=== PATIENT | male | born 1945 | race Caucasian/White ===

== ENCOUNTER 2019-09-03 10:13 | Inpatient (IN) | payer MEDICARE, OTHER ==
[~2019-09-03] VITALS: Ht 180.3 cm; Wt 90.0 kg
[2019-09-03] VITALS (9 sets, daily range): BP systolic 97–135; BP diastolic 70–93
--- NOTE | 2019-09-03 11:30 | NUR ---
CHELA THAO admitted to room CU8-1, with an admitting diagnosis of AFIB RVR, on 09/03/19 from [facility], accompanied by STAFF.CHELA THAO introduced to surroundings, call light, bed controls, phone, TV, temperature control, lights, meal times, smoking policy, visitor policy, side rail policy, bathrooms and showers. Patient Rights given to patient in the handbook. CHELA THAO verbalizes understanding that [facility] is not responsible for the loss or damage to any personal effects or valuables that are kept in the patients posession during their hospitalization. The following Patient Care Plans were discussed with the PT: Discharge Planning, ANXIETY,ACTIVITY INTOLERANCE, and KNOWLEDGE DEFICIT. CHELA THAO verbalizes understanding of Interdisciplinary Patient Education. Patient and family were informed about the Rapid Response Team and its purpose.
[2019-09-03] MEDS ORDERED: MELATONIN 3 MG TABLET PO PRN (11:45)
[2019-09-03] MEDS ORDERED: ENOXAPARIN 100 MG/1 ML (LOVENOX) SYR SC SCH ×3 (11:45→22:00)
[2019-09-03] MEDS ORDERED: ONDANSETRON 4 MG/2 ML (SDV) Z0FRAN IV PRN (11:45)
[2019-09-03] MEDS ORDERED: ANTACID SUSP 30 ML UDC (MYLANTA) PO PRN (11:45)
[2019-09-03] MEDS ORDERED: BISACODYL 10 MG SUPP (DULCOLAX) PR PRN (11:45)
[2019-09-03] MEDS ORDERED: POLYETHYLENE GLYCOL 17 GM (MIRALAX) PACK PO PRN (11:45)
[2019-09-03] MEDS ORDERED: dilTIAZem DRIP PRE-MIX 125 ML IV ONE (11:52)
[2019-09-03] MEDS: dilTIAZem DRIP PRE-MIX 125 ML IV SCH ×2 (11:59→19:02)
--- NOTE | 2019-09-03 12:21 | NUR ---
PT RECEIVED 90MG OF LOVENOX AT [facility] [place] PER REPORT.
--- NOTE | 2019-09-03 13:18 | History & Physical-Hospitalist ---
History of Present Illness HPI/Chief Complaint Patient is a 74-year-old male with a past medical history of hypertension who was admitted from [facility] ER due to new onset atrial fibrillation with rapid ventricular rate. He reports that he was seen his primary care his admission, Dr. Muro, for a routine checkup when he was n oted to have a high heart rate. Per verbal report from the ER his rate was in the 180s. He was then referred to the emergency room at [facility] He was somewhat hypotensive with a blood pressure of 91/40. He was given 1 L of IV fluids which increased his blood pressure and was started on a Cardizem drip. He denies any symptoms including chest pain or palpitations. He does complain of new onset lower extremity edema within the past 2 weeks. He is also developed orthopnea but denies any dyspnea with exertion. Source: patient Exam Limitations: no limitations Date Seen 09/03/19 Time Seen by a Provider: 13:12 Attending Physician Fabiola Hearn MD PCP Roney Muro DO Referring Physician Date of Admission Sep 03, 2019 at 11:30 Home Medications & Allergies Home Medications Reviewed patient Home Medication Reconciliation performed by pharmacy medication reconciliations telecasting technician and/or nursing. Patients Allergies have been reviewed. Allergies Allergies Coded Allergies No Known Drug Allergies (Unverified09/03/19) Past Tmhvrnu-Hqxdpt-Pimcwm Hx Past Med/Social Hx: Reviewed Nursing Past Med/Soc Hx Patient Social History Marrital Status: Alcohol Use: Denies Use Recreational Drug Use: No Smoking Status: Never a Smoker Physical Abuse Screen: No Sexual Abuse: No Recent Foreign Travel: No Contact w/other who traveled: No Recent Hopitalizations: No Recent Infectious Disease Expo: No Immunizations Up To Date Date of Influenza Vaccine: May 05, 2019 Seasonal Allergies Seasonal Allergies: No Past Medical History Surgeries: Eye Surgery, Joint Replacement, Orthopedic Cardiac: Hypertension Musculoskeletal: Gout History of Blood Disorders: No Family History Reviewed Nursing Family Hx Patient reports no known family medical history. Review of Systems Constitutional: no symptoms reported EENTM: no symptoms reported Respiratory: see HPI; No cough, No dyspnea on exertion; orthopnea; No phlegm, No short of breath Cardiovascular: No chest pain; edema; No Hx of Intervention, No palpitations Gastrointestinal: no symptoms reported Genitourinary: no symptoms reported Musculoskeletal: no symptoms reported Skin: no symptoms reported Psychiatric/Neurological: No Symptoms Reported Physical Exam Physical Exam Vital Signs Vital Signs - First Documented 09/03/19 09/03/19 09/03/19 11:30 12:00 12:09 Temp 37.0 Pulse 134 B/P (MAP) 134/89 (104) Pulse Ox 96 O2 Delivery Room Air Capillary Refill : Height, Weight, BMI Height: '" Weight: lbs. oz. kg; 27.56 BMI Method: General Appearance: No Apparent Distress, WD/WN HEENT: PERRL/EOMI, Moist Mucous Membranes; No Scleral Icterus (L), No Scleral Icterus (R) Neck: Normal Inspection, Supple Respiratory: Lungs Clear, No Accessory Muscle Use, No Respiratory Distress Cardiovascular: No Murmur, Irregularly Irregular, Tachycardia Gastrointestinal: Normal Bowel Sounds, Non Tender, Soft Extremity: No Calf Tenderness, Swelling (2-3+ pitting to bilateral lower extremities) Neurologic/Psychiatric: Alert, Oriented x3, Normal Mood/Affect; No Aphasia, No Facial Droop Skin: Normal Color, Warm/Dry Results Results/Procedures Labs Patient resulted labs reviewed. Assessment/Plan Admission Diagnosis Atrial fibrillation with RVR Admission Status: Inpatient Order (span 2 midnights) Reason for Inpatient Admission: new onset, needs cardiology evaluation and heart failure work up Assessment and Plan Atrial Fib with RVR HTN Cardiology consulted, appreciate recs BP improved, trend Cardizem gtt Rate was steadily 110-125 while I was at bedside Lovenox given at [facility], will continue therapeutic dosing for stroke ppx echo Lower extremity edema Echo ordered Hypomagnesemia replaced at OSH Check in AM Diagnosis/Problems Diagnosis/Problems (1) Atrial fibrillation with RVR Status: Acute (2) Essential (primary) hypertension Status: Chronic (3) Hypomagnesemia Status: Acute (4) Lower extremity edema Status: Acute Clinical Quality Measures DVT/VTE Risk/Contraindication: Risk Factor Score Per Nursin RFS Level Per Nursing on Admit: 3=High Copy Copies To 1: RONEY MURO KATELYN M MD Sep 03, 2019 13:18
[2019-09-03] MEDS ORDERED: ASPI-983 PO (13:32)
[2019-09-03] MEDS ORDERED: AMLO5TAB9 PO (13:32)
[2019-09-03] MEDS ORDERED: LISI1TAB25 PO (13:32)
--- NOTE | 2019-09-03 13:32 | NUR ---
SPOKE WITH THE PATIENT ABOUT HIS MEDICATIONS, HE HAD HIS TWO PRESCRIPTION MED NAMES WRITTEN DOWN ON A PIECE OF PAPER IN HIS POCKET WITH STRENGTHS. HE VERIFIED HE TAKES ONE EVERY MORNING OF EACH MED. HE ALSO TAKES AN 81MG ASPIRIN EVERY MORNING OTC. I VERIFIED THE PRESCRIPTIONS WITH THE EXT MED HX.
[2019-09-03] MEDS: inSUlin ASPART (NovoLOG) 1 UNIT/0.01 ML (CHARGE PER UNIT) SC SCH ×2 (15:41→20:11)
--- NOTE | 2019-09-03 16:08 | Consultation-Cardiology ---
HPI-Cardiology Cardiology Consultation Date of Consultation 09/03/19 Date of Admission Time Seen by Provider: 16:04 Indication: Shortness of breath HPI 74 years old gentleman with no known history other than hypertension, has history of snoring. Started for about 2-1/2 weeks to have increasing dyspnea, orthopnea, PND, went for his routine checkup with his primary physician where he was noted to be in atrial fibrillation with rapid ventricular response. Denied any chest pain, no palpitation, no syncope, has been having increasing pedal edema for the past 2 weeks. He was borderline hypotensive, took his blood pressure medications this morning. Home Medications & Allergies Allergies: Coded Allergies: No Known Drug Allergies (Unverified , 09/03/19) Home Medication List Reviewed: Yes YTA-Fhnvih-Bqowwj Hx Patient Social History Marital Status: , Employed/Student: employed Alcohol Use: Denies Use Recreational Drug Use: No Smoking Status: Never a Smoker Recent Foreign Travel: No Recent Infectious Disease Expo: No Recent Hopitalizations: No Physical Abuse Screen: No Sexual Abuse: No Immunizations Up To Date Date of Influenza Vaccine: May 05, 2019 Past Medical History Discussed below Family Medical History Family Medical Hx Noncontributory Family History: Patient reports no known family medical history. Review of Systems-General Review of Systems Constitutional: no symptoms reported, malaise, weakness EENTM: see HPI, no symptoms reported Respiratory: see HPI; No cough; dyspnea on exertion, orthopnea; No phlegm; s hort of breath Cardiovascular: see HPI; No chest pain; edema; No Hx of Intervention, No palpitations Gastrointestinal: no symptoms reported, see HPI Genitourinary: no symptoms reported, see HPI Musculoskeletal: no symptoms reported, see HPI Skin: no symptoms reported, see HPI Psychiatric/Neurological: No Symptoms Reported, See HPI Reviewed Test Results Reviewed Test Results Lab Laboratory Tests Test 09/03/19 15:33 Range/Units Glucometer 96 70-110 MG/DL Physical Exam Physical Exam Vital Signs Vital Signs - First Documented 09/03/19 09/03/19 12:00 12:09 Temp 37.0 Pulse Ox 96 Capillary Refill : Height, Weight, BMI Height: '" Weight: lbs. oz. kg; 27.56 BMI Method: General Appearance: No Apparent Distress, WD/WN Eyes: Bilateral Eye Normal Inspection, Bilateral Eye PERRL, Bilateral Eye EOMI HEENT: PERRL/EOMI, Moist Mucous Membranes; No Scleral Icterus (L), No Scleral Icterus (R) Neck: Normal Inspection, Supple Respiratory: Lungs Clear, No Accessory Muscle Use, No Respiratory Distress Cardiovascular: No Murmur, Irregularly Irregular, Tachycardia Gastrointestinal: Normal Bowel Sounds, Non Tender, Soft Back: Normal Inspection, No CVA Tenderness, No Vertebral Tenderness Extremity: No Calf Tenderness, Pedal Edema (3), Swelling (2-3+ pitting to bilateral lower extremities) Neurologic/Psychiatric: Alert, Oriented x3, Normal Mood/Affect; No Aphasia, No Facial Droop Skin: Normal Color, Warm/Dry Lymphatic: No Adenopathy A/P-Cardiology Admission Diagnosis Acute atrial fibrillation Shortness of breath Peripheral edema Hypertension Assessment/Plan Atrial fibrillation with rapid ventricular response, probably subacute, has been having increasing shortness of breath for the past 3 weeks. Started on Cardizem drip, continue to titrate and adjust achieve adequate heart rate control, planning to evaluate VINI with electrical cardioversion in the morning if he did not convert on his own. Continue on Lovenox for now. Shortness of breath, orthopnea and PND, signs of congestive heart failure with peripheral edema. Hold off on the Lasix for now, monitor echo, evaluate BMP and cardiac enzymes. Hypertension, has been on amlodipine, lisinopril/HCTZ, hold both medications and continue on Cardizem drip titration Obesity, BMI 27 Snoring, high risk for sleep apnea. Will need sleep study as an outpatient. Peripheral edema, planning to initiate diuretics. Hyperthyroidism, reevaluate TSH and thyroid panel if needed, managed by primary care physician Status post cataract surgery occurred in January or February 2019 Clinical Quality Measures DVT/VTE Risk/Contraindication: Risk Factor Score Per Nursin RFS Level Per Nursing on Admit: 3=High OLGA URRUTIA MD Sep 03, 2019 16:08
[2019-09-03 16:29] LABS: MEAN PLATELET VOLUME 10.8 FL (7.4-10.4); RED CELL DISTRIBUTION WIDTH 16.4 % (10.0-14.5); WHITE BLOOD COUNT 7.6 10^3/uL (4.3-11.0)
[2019-09-03] MEDS: ACETAMINOPHEN 325 MG TABLET PO PRN ×2 (16:44→22:30)
[2019-09-03] MEDS ORDERED: RT-ALBUTEROL SULF 2.5 MG/3 ML PRE-MIX VIAL INH PRN (17:00)
[2019-09-03] MEDS ORDERED: DILTIAZEM 25 MG/5 ML INJ (CARDIZEM) VIAL ONE (17:01)
[2019-09-03 17:05] LABS: ALANINE AMINOTRANSFERASE 14 U/L (0-55); ALKALINE PHOSPHATASE 80 U/L (40-136); BILIRUBIN,TOTAL 1.4 MG/DL (0.1-1.0); BUN/CREATININE RATIO 19; CALCIUM 9.9 MG/DL (8.5-10.1); CARBON DIOXIDE 15 MMOL/L (21-32); CHLORIDE 110 MMOL/L (98-107); CREATININE SERUM 0.89 MG/DL (0.60-1.30); GFR ESTIMATED > 60; GLUCOSE 101 MG/DL (70-105); POTASSIUM 4.1 MMOL/L (3.6-5.0); SODIUM 140 MMOL/L (135-145); TOTAL PROTEIN 7.4 GM/DL (6.4-8.2)
[2019-09-03] MEDS ORDERED: DILTIAZEM 25 MG/5 ML INJ (CARDIZEM) VIAL IVP ONE (17:15)
[2019-09-04] VITALS (23 sets, daily range): BP systolic 95–125; BP diastolic 64–89
[2019-09-04] MEDS: dilTIAZem DRIP PRE-MIX 125 ML IV SCH ×2 (01:06→13:12)
[2019-09-04 03:31] LABS: HEMOGLOBIN 9.5 G/DL (13.3-17.7); RED CELL DISTRIBUTION WIDTH 16.7 % (10.0-14.5); WHITE BLOOD COUNT 6.1 10^3/uL (4.3-11.0)
[2019-09-04 03:51] LABS: ALANINE AMINOTRANSFERASE 11 U/L (0-55); ALBUMIN 3.5 GM/DL (3.2-4.5); ALKALINE PHOSPHATASE 70 U/L (40-136); BILIRUBIN,TOTAL 1.1 MG/DL (0.1-1.0); BUN/CREATININE RATIO 19; CALCIUM 9.2 MG/DL (8.5-10.1); CARBON DIOXIDE 19 MMOL/L (21-32); CHLORIDE 111 MMOL/L (98-107); CREATININE SERUM 1.19 MG/DL (0.60-1.30); GFR ESTIMATED 60; GLUCOSE 112 MG/DL (70-105); SODIUM 140 MMOL/L (135-145); TOTAL PROTEIN 6.6 GM/DL (6.4-8.2)
[2019-09-04] MEDS: inSUlin ASPART (NovoLOG) 1 UNIT/0.01 ML (CHARGE PER UNIT) SC SCH ×4 (05:25→20:37)
[2019-09-04] MEDS ORDERED: NS (IVPB) 250 ML ONE (07:58)
[2019-09-04] MEDS ORDERED: LIDOCAINE 2% VISCOUS 15 ML UDC ONE (07:59)
[2019-09-04] MEDS ORDERED: MIDAZOLAM 2 MG/2 ML (VERSED) VIAL ONE (08:03)
--- NOTE | 2019-09-04 08:03 | Cardiology Progress Note ---
Subjective Date Seen by Provider: Sep 04, 2019 Time Seen by Provider: 08:01 Subjective/Events-last exam patient is laying down in bed, still in atrial fibrillation. No chest pain Review of Systems General: No Chills, No Night Sweats, No Fatigue, No Malaise, No Appetite, No Other HEENT: No Head Aches, No Visual Changes, No Eye Pain, No Ear Pain, No Dysphasia, No Sinus Congestion, No Post Nasal Drip, No Sore Throat, No Other Pulmonary: Dyspnea; No Cough, No Pleuritic Chest Pain, No Other Cardiovascular: No: Chest Pain, Palpitations, Orthopnea, Paroxysmal Noc. Dyspnea, Edema, Lt Headedness, Other Objective-Cardiology Exam Last Set of Vital Signs Vital Signs 09/03/19 09/04/19 09/04/19 09/04/19 15:50 03:19 06:00 07:00 Temp 37.4 Pulse 113 Resp 20 B/P (MAP) 112/89 (97) Pulse Ox 93 O2 Delivery Room Air FiO2 21 Capillary Refill : I&O Intake and Output 09/04/19 00:00 Intake Total 975 ml Output Total 175 ml Balance 800 ml Intake Oral 850 ml IV Total 125 ml Output Urine Total 175 ml # Voids 4 Daily Weight Change No General: Alert, Oriented X3, Cooperative HEENT: Atraumatic, PERRLA Neck: Supple, No JVD, No Thyromegaly Lungs: Clear to Auscultation, Normal Air Movement Heart: Normal S1, Normal S2, No Murmurs, Other (atrial fibrillation) Abdomen: Normal Bowel Sounds, Soft, No Tenderness, No Hepatosplenomegaly, No Masses Extremities: No Clubbing, No Cyanosis, No Edema, Normal Pulses, No Tenderness/Swelling Skin: No Rashes, No Breakdown, No Significant Lesion Neuro: Normal Gait, Normal Speech, Strength at 5/5 X4 Ext, Normal Tone, Sensation Intact Psych/Mental Status: Mental Status NL, Mood NL Results Lab Laboratory Tests 09/03/19 16:21 09/04/19 03:15 A/P-Cardiology Admission Diagnosis Acute atrial fibrillation Shortness of breath Peripheral edema Hypertension Assessment/Plan Atrial fibrillation with rapid ventricular response, probably subacute, has been having increasing shortness of breath for the past 3 weeks. did not convert on Cardizem drip, I will proceed with VINI and electrical cardioversion Shortness of breath, orthopnea and PND, congestive heart failure, acute left ventricular systolic dysfunction, probably secondary to arrhythmia, underlying coronary artery disease cannot be excluded. Planning to proceed with VINI and cardioversion today. Echocardiogram done on September 03, 2019 showing normal left ventricular size, ejection fraction 40-45 percent, moderate mitral regurgitation, moderate tricuspid regurgitation, left atrium 5 cm, estimated PA pressure 40 mmHg Hypertension, has been on amlodipine, lisinopril/HCTZ, hold both medications and continue on Cardizem drip titration Obesity, BMI 27 Snoring, high risk for sleep apnea. Will need sleep study as an outpatient. Peripheral edema, planning to initiate diuretics. Hyperthyroidism, reevaluate TSH and thyroid panel if needed, managed by primary care physician Status post cataract surgery occurred in January or February 2019 Clinical Quality Measures DVT/VTE Risk/Contraindication: Risk Factor Score Per Nursin RFS Level Per Nursing on Admit: 3=High OLGA URRUTIA MD Sep 04, 2019 08:03
--- NOTE | 2019-09-04 08:04 | Cardiac Procedure Note-CS/ASA ---
Pre-Procedure Note Pre-Op Procedure Note H&P Reviewed The H&P was reviewed, patient examined and no changes noted. Date H&P Reviewed: Sep 04, 2019 Time H&P Reviewed: 08:04 Conscious Sedation Pre-Proced Time 08:04 ASA Score 3 For ASA 3 and 4: Consider anesthesia and medical clearance. Also, for patients with a history of failed moderate sedation consider anesthesia. Airway Lungs Heart ASA score ASA 1: a normal healthy patient ASA 2: a patient with a mild systemic disease (mid diabetes, controlled hypertension, obesity x ASA 3: a patient with a severe systemic disease that limits activity (angina, COPD, prior Myocardial infarction) ASA 4: a patient with an incapacitating disease that is a constant threat to life (CHF, renal failure) ASA 5: a moribund patient not expected to survive 24 hrs. (ruptured aneurysm) ASA 6: a declared brain- patient whose organs are being harvested. For emergent operations, add the letter E after the classification Mallampati Classification Grade 3 Sedation Plan Analgesia, Amnesia, Plan communicated to team members, Discussed options with patient/fam, Discussed risks with patient/fam The patient is an appropriate candidate to undergo the planned procedure, sedation, and anesthesia. The patient immediately re-assessed prior to indication. OLGA URRUTIA MD Sep 04, 2019 08:04
[2019-09-04] MEDS ORDERED: AMIODARONE (OMNICELL DRIP KIT) 150 MG/3 ML IV ONE ×2 (08:17→08:23)
[2019-09-04] MEDS ORDERED: D5W 100 ML IVPB 100 ML IV ONE (08:24)
--- NOTE | 2019-09-04 08:25 | Cardioversion ---
Cardioversion PROCEDURE PHYSICIAN: Olga Laura DATE OF PROCEDURE: 09/04/19 DIRECT EXTERNAL ELECTRICAL CARDIOVERSION: Indications: Atrial Fibrillation with rapid ventricular rate Preoperative diagnoses: Atrial Fibrillation with rapid ventricular rate Postoperative diagnosis: Sinus rhythm, Successful Electrical Cardioversion Anesthesia: By Anesthesia services Complications: None Specimen: None Contrast: 0 Flouroscopy: none Procedure Details: The patient was brought the director of cardiac cath lab after informed consent was taken, all the risks and complications were explained including the risk of stroke. Electrical cardioversion was carried out with anesthesia support with propofol. 200 joules of synchronized shock was delivered through external patches which promptly restored sinus rhythm. The patient tolerated the procedure well. Conclusions: Successful electrical cardioversion with no complication OLGA LAURA MD Sep 04, 2019 08:25
[2019-09-04] MEDS ORDERED: AMIODARONE FOR BOLUS 150 MG in D5W 100 ML IVPB 100 ML IV ONE (08:30)
[2019-09-04] MEDS ORDERED: proPOfol 200 MG/20 ML (DIPRIVAN) VIAL IV ONE (08:31)
[2019-09-04] MEDS ORDERED: AMIODARONE FOR BOLUS 150 MG in D5W 100 ML IVPB 100 ML IV NR (08:38)
--- NOTE | 2019-09-04 08:41 | Progress Note - Hospitalist ---
Subjective HPI/CC On Admission Date Seen by Provider: Sep 04, 2019 Time Seen by Provider: 08:36 Patient is a 74-year-old male with a past medical history of hypertension who was admitted from [facility] ER due to new onset atrial fibrillation with rapid ventricular rate. He reports that he was seen his primary care his admission, Dr. Muro, for a routine checkup when he was noted to have a high heart rate. Per verbal report from the ER his rate was in the 180s. He was then referred to the emergency room at [facility] He was somewhat hypotensive with a blood pressure of 91/40. He was given 1 L of IV fluids which increased his blood pressure and was started on a Cardizem drip. He denies any symptoms including chest pain or palpitations. He does complain of new onset lower extremity edema within the past 2 weeks. He is also developed orthopnea but denies any dyspnea with exertion. Subjective/Events-last exam Pt is about to undergo cardioversion. No complaints. Anesthesia and Cardiology at bedside. Objective Exam Vital Signs Vital Signs Date Time Temp Pulse Resp B/P (MAP) Pulse Ox O2 Delivery O2 Flow Rate FiO2 09/04/19 08:00 121 34 125/77 (93) 94 Room Air 09/04/19 03:19 37.4 09/03/19 15:50 21 Capillary Refill : General Appearance: No Apparent Distress, WD/WN Respiratory: No Accessory Muscle Use, No Respiratory Distress Neurologic/Psychiatric: Alert, Oriented x3 Results/Procedures Lab Laboratory Tests 09/03/19 16:21 09/04/19 03:15 Patient resulted labs reviewed. Assessment/Plan Assessment and Plan Assess & Plan/Chief Complaint Atrial Fib with RVR HTN Systolic congestive heart failure Cardiology consulted, appreciate recs Plan for cardioversion this morning Echo reveals EF of 40% Eliquis for anticoagulation Lower extremity edema Echo reveals EF of 40% Hypomagnesemia Pending Diagnosis/Problems Diagnosis/Problems (1) Atrial fibrillation with RVR Status: Acute (2) Essential (primary) hypertension Status: Chronic (3) Hypomagnesemia Status: Acute (4) Lower extremity edema Status: Acute Clinical Quality Measures DVT/VTE Risk/Contraindication: Risk Factor Score Per Nursin RFS Level Per Nursing on Admit: 3=High TADEO JOHNSON MD Sep 04, 2019 08:41
[2019-09-04] MEDS: ACETAMINOPHEN 325 MG TABLET PO PRN ×2 (10:25→12:53)
[2019-09-04] MEDS: PANTOPRAZOLE 40 MG (PROTONIX) TAB PO SCH (10:26)
[2019-09-04] MEDS: AMIODARONE 200 MG (CORDARONE) TAB PO SCH ×2 (10:26→20:38)
[2019-09-04] MEDS: APIXABAN 5 MG (ELIQUIS) TABLET PO SCH ×2 (10:26→20:38)
[2019-09-04] MEDS: AMIODARONE INJECTION 450 MG in D5W IV SOLUTION (EXCEL) 250 ML IV SCH ×2 (10:28→18:35)
--- NOTE | 2019-09-04 13:15 | NUR ---
VINI/CARDIOVERSION TIMELINE NOTE. 0805: VISCOUS LIDOCAINE GIVEN. 0810: ANESTHESIA, ECHO, AND DR URRUTIA IN ROOM. THIS RN IN ROOM TO ASSIST IF NEEDED. 0814: CARDIOVERSION COMPLETED AT 200J SUCCESSFULL TO NSR. EKG PERFORMED. 0830: PT DID HAVE SMALL RUN OF A FIB TO NSR WHILE DR URRUTIA IN THE ROOM. VO GIVEN TO START AMIO WITH BOLUS. PT A/O IN NAD WITH STABLE VITALS. MONITORING HIM CLOSELY.
[2019-09-04] MEDS ORDERED: COLCHICINE 0.6 MG (COLCRYS) TABLET PO NR (15:15)
[2019-09-05] VITALS (20 sets, daily range): BP systolic 106–133; BP diastolic 63–97
[2019-09-05] MEDS: dilTIAZem DRIP PRE-MIX 125 ML IV SCH ×2 (00:56→16:43)
[2019-09-05] MEDS: inSUlin ASPART (NovoLOG) 1 UNIT/0.01 ML (CHARGE PER UNIT) SC SCH ×4 (06:27→22:05)
--- NOTE | 2019-09-05 08:21 | Diagnostic Imaging Report ---
INDICATION: Fever. TECHNIQUE: Single frontal view of the chest. COMPARISON: None FINDINGS: There is mild cardiomegaly. There is a small left pleural effusion. There are bibasilar airspace opacities with central vascular congestion. No pneumothorax is seen. IMPRESSION: 1. Bibasilar airspace opacities, may represent edema or infection. 2. Mild cardiomegaly with central vascular congestion. 3. Small left pleural effusion. Dictated by: Dictated on workstation # [id number]
[2019-09-05 09:09] LABS: RED CELL DISTRIBUTION WIDTH 16.3 % (10.0-14.5); WHITE BLOOD COUNT 7.4 10^3/uL (4.3-11.0)
[2019-09-05] MEDS: PANTOPRAZOLE 40 MG (PROTONIX) TAB PO SCH (09:20)
[2019-09-05] MEDS: AMIODARONE 200 MG (CORDARONE) TAB PO SCH ×2 (09:21→20:04)
[2019-09-05] MEDS: APIXABAN 5 MG (ELIQUIS) TABLET PO SCH ×2 (09:21→20:04)
--- NOTE | 2019-09-05 09:26 | Progress Note - Hospitalist ---
Subjective HPI/CC On Admission Date Seen by Provider: Sep 05, 2019 Time Seen by Provider: 09:21 Patient is a 74-year-old male with a past medical history of hypertension who was admitted from [facility] ER due to new onset atrial fibrillation with rapid ventricular rate. He reports that he was seen his primary care his admission, Dr. Muro, for a routine checkup when he was noted to have a high heart rate. Per verbal report from the ER his rate was in the 180s. He was then referred to the emergency room at [facility] He was somewhat hypotensive with a blood pressure of 91/40. He was given 1 L of IV fluids which increased his blood pressure and was started on a Cardizem drip. He denies any symptoms including chest pain or palpitations. He does complain of new onset lower extremity edema within the past 2 weeks. He is also developed orthopnea but denies any dyspnea with exertion. Subjective/Events-last exam Pt reports doing well. Requesting DC home. HR still >100 on Cardizem gtt and amiodarone. Now has fever as well. Discussed reasons for staying in the hospital and he is agreeable. Objective Exam Vital Signs Vital Signs Date Time Temp Pulse Resp B/P (MAP) Pulse Ox O2 Delivery O2 Flow Rate FiO2 09/05/19 09:00 98 24 131/86 (101) 93 Nasal Cannula 2.00 09/05/19 03:50 37.6 09/03/19 15:50 21 Capillary Refill : General Appearance: No Apparent Distress, WD/WN Respiratory: No Accessory Muscle Use, No Respiratory Distress, Decreased Breath Sounds (in cases) Cardiovascular: Tachycardia (regular rhythem) Gastrointestinal: Normal Bowel Sounds, Non Tender, Soft Extremity: No Calf Tenderness, No Pedal Edema Neurologic/Psychiatric: Alert, Oriented x3, Normal Mood/Affect Results/Procedures Lab Laboratory Tests 09/05/19 08:54 Patient resulted labs reviewed. Assessment/Plan Assessment and Plan Assess & Plan/Chief Complaint Atrial Fib with RVR HTN Systolic congestive heart failure Cardiology consulted, appreciate recs s/p cardioversion this AM Echo reveals EF of 40% Eliquis for anticoagulation still on amiodarone and cardizem Lower extremity edema Echo reveals EF of 40% Gout improved with colchicine Hypomagnesemia Resolved, on protocol Normocytic anemia Will need outpatient work up Hyperthyroidism TSH low but normal T4 Recheck as an outpatient Diagnosis/Problems Diagnosis/Problems (1) Atrial fibrillation with RVR Status: Acute (2) Essential (primary) hypertension Status: Chronic (3) Hypomagnesemia Status: Acute (4) Lower extremity edema Status: Acute Clinical Quality Measures DVT/VTE Risk/Contraindication: Risk Factor Score Per Nursin RFS Level Per Nursing on Admit: 3=High TADEO JOHNSON MD Sep 05, 2019 09:26
[2019-09-05 09:29] LABS: ALBUMIN 3.6 GM/DL (3.2-4.5); BILIRUBIN,TOTAL 1.1 MG/DL (0.1-1.0); CALCIUM 9.3 MG/DL (8.5-10.1); CREATININE SERUM 1.21 MG/DL (0.60-1.30); POTASSIUM 4.1 MMOL/L (3.6-5.0)
--- NOTE | 2019-09-05 10:12 | Cardiology Progress Note ---
Subjective Date Seen by Provider: Sep 05, 2019 Time Seen by Provider: 10:10 Subjective/Events-last exam Patient is laying down in bed, having mild shortness of breath, had low-grade fever Review of Systems General: No Chills, No Night Sweats, No Fatigue, No Malaise, No Appetite, No Other HEENT: No Head Aches, No Visual Changes, No Eye Pain, No Ear Pain, No Dysphasia, No Sinus Congestion, No Post Nasal Drip, No Sore Throat, No Other Pulmonary: No Dyspnea, No Cough, No Pleuritic Chest Pain, No Other Cardiovascular: No: Chest Pain, Palpitations, Orthopnea, Paroxysmal Noc. Dyspnea, Edema, Lt Headedness, Other Objective-Cardiology Exam Last Set of Vital Signs Vital Signs 09/03/19 09/05/19 09/05/19 15:50 03:50 09:00 Temp 37.6 Pulse 98 Resp 24 B/P (MAP) 131/86 (101) Pulse Ox 93 O2 Delivery Nasal Cannula O2 Flow Rate 2.00 FiO2 21 Capillary Refill : I&O Intake and Output 09/05/19 00:00 Intake Total 805 ml Output Total 625 ml Balance 180 ml Intake Oral 680 ml IV Total 125 ml Output Urine Total 625 ml # Voids 7 General: Alert, Oriented X3, Cooperative HEENT: Atraumatic, PERRLA Neck: Supple, No JVD, No Thyromegaly Lungs: Clear to Auscultation, Normal Air Movement Heart: Regular Rate, Normal S1, Normal S2, Other (Systolic murmur at the left sternal border) Abdomen: Normal Bowel Sounds, Soft, No Tenderness, No Hepatosplenomegaly, No Masses Extremities: No Clubbing, No Cyanosis, No Edema, Normal Pulses, No Tenderness/Swelling Skin: No Rashes, No Breakdown, No Significant Lesion Neuro: Normal Gait, Normal Speech, Strength at 5/5 X4 Ext, Normal Tone, Sensation Intact Psych/Mental Status: Mental Status NL, Mood NL Results Lab Laboratory Tests 09/05/19 08:54 A/P-Cardiology Admission Diagnosis Acute atrial fibrillation Shortness of breath Peripheral edema Hypertension Assessment/Plan Paroxysmal atrial fibrillation status post VINI and cardioversion, started on amiodarone drip and tolerating it well. Low-grade fever, questionable early infiltrate on chest x-ray. Septic workup was initiated, managed by primary care physician Shortness of breath, orthopnea and PND, mild left ventricular systolic dysfunction, valvular heart disease with moderate mitral regurgitation. Moderate tricuspid regurgitation, left atrium is 5 cm with PA pressure 40 mmHg. Medical therapy is recommended at this time. Hypertension, was on amlodipine and lisinopril HCT, changing medication monitoring tolerance and response Obesity, BMI 27 Snoring, high risk for sleep apnea. Will need sleep study as an outpatient. Peripheral edema, planning to initiate diuretics. Hyperthyroidism, reevaluate TSH and thyroid panel if needed, managed by primary care physician Status post cataract surgery occurred in January or February 2019 Clinical Quality Measures DVT/VTE Risk/Contraindication: Risk Factor Score Per Nursin RFS Level Per Nursing on Admit: 3=High OLGA URRUTIA MD Sep 05, 2019 10:12
[2019-09-05] MEDS ORDERED: FUROSEMIDE 40 MG/4 ML INJ (LASIX) IVP ONE (10:15)
--- NOTE | 2019-09-05 11:39 | NUR ---
PT TRIAL OFF OXYGEN AT BEGINNING OF SHIFT WITH SATS DOWN TO 87%. PT ASYMPTOMATIC. REAPPLIED AT 2 LPM WITH SATS 93%. 1100: PT ASSISTED TO TOILET FOR BM. LINENS CHANGED AND PT AMBULATED WITH WALKER AROUND THE ROOM SEVERAL TIMES. PT TO CHAIR. OXYGEN TRIAL OFF AGAIN AND SATS REMAINED 91% OR GREATER. ALARM LIMIT SET TO 90% AND WILL MONITOR ON ROOM AIR.
[2019-09-05] MEDS: cefTRIAXone FOR IV USE 1,000 MG in WATER (STERILE) FOR INJECTION 10 ML IV SCH (11:50)
[2019-09-05] MEDS: ACETAMINOPHEN 325 MG TABLET PO PRN (20:04)
[2019-09-05] MEDS ORDERED: diphenhydrAMINE 25 MG TAB (BENADRYL) PO ONE (20:34)
[2019-09-05] MEDS ORDERED: diphenhydrAMINE 25 MG TAB (BENADRYL) PO PRN (20:45)
[2019-09-06] VITALS (15 sets, daily range): BP systolic 109–139; BP diastolic 73–86
[2019-09-06 03:36] LABS: BASOPHILS % (AUTO) 0 % (0-10); EOSINOPHILS # (AUTO) 0.1 10^3/uL (0.0-0.3); EOSINOPHILS % (AUTO) 1 % (0-10); HEMATOCRIT 34 % (40-54); HEMOGLOBIN 10.2 G/DL (13.3-17.7); LYMPHOCYTES # (AUTO) 1.4 X 10^3 (1.0-4.0); LYMPHOCYTES % (AUTO) 18 % (12-44); MEAN CORPUSCULAR HEMOGLOBIN 24 PG (25-34); MEAN CORPUSCULAR HGB CONC 30 G/DL (32-36); MEAN CORPUSCULAR VOLUME 80 FL (80-99); MEAN PLATELET VOLUME 10.6 FL (7.4-10.4); MONOCYTES # (AUTO) 1.2 X 10^3 (0.0-1.0); MONOCYTES % (AUTO) 16 % (0-12); NEUTROPHILS # (AUTO) 5.2 X 10^3 (1.8-7.8); NEUTROPHILS % (AUTO) 66 % (42-75); PLATELET COUNT 217 10^3/uL (130-400); RED CELL DISTRIBUTION WIDTH 16.5 % (10.0-14.5); WHITE BLOOD COUNT 7.9 10^3/uL (4.3-11.0)
[2019-09-06 04:18] LABS: ALBUMIN 3.6 GM/DL (3.2-4.5); BILIRUBIN,TOTAL 0.9 MG/DL (0.1-1.0); CALCIUM 9.5 MG/DL (8.5-10.1); CREATININE SERUM 1.25 MG/DL (0.60-1.30); POTASSIUM 4.1 MMOL/L (3.6-5.0); TOTAL PROTEIN 7.2 GM/DL (6.4-8.2)
[2019-09-06] MEDS: inSUlin ASPART (NovoLOG) 1 UNIT/0.01 ML (CHARGE PER UNIT) SC SCH ×2 (06:05→11:17)
[2019-09-06] MEDS ORDERED: KCL 10 MEQ TAB (MICRO K) PO SCH ×2 (07:00→09:00)
[2019-09-06] MEDS: dilTIAZem DRIP PRE-MIX 125 ML IV SCH (07:37)
--- NOTE | 2019-09-06 07:58 | Cardiology Progress Note ---
Subjective Date Seen by Provider: Sep 06, 2019 Time Seen by Provider: 07:57 Subjective/Events-last exam Patient is laying down comfortably in bed, went back to atrial fibrillation with rapid ventricular response last night. Currently on Cardizem drip Review of Systems General: No Chills, No Night Sweats, No Fatigue, No Malaise, No Appetite, No Other HEENT: No Head Aches, No Visual Changes, No Eye Pain, No Ear Pain, No Dysphasia, No Sinus Congestion, No Post Nasal Drip, No Sore Throat, No Other Pulmonary: No Dyspnea, No Cough, No Pleuritic Chest Pain, No Other Cardiovascular: No: Chest Pain, Palpitations, Orthopnea, Paroxysmal Noc. Dyspnea, Edema, Lt Headedness, Other Objective-Cardiology Exam Last Set of Vital Signs Vital Signs 09/03/19 09/05/19 09/06/19 09/06/19 15:50 21:00 03:33 06:00 Temp 36.9 Pulse 92 Resp 20 B/P (MAP) 116/77 (90) Pulse Ox 93 O2 Delivery Room Air O2 Flow Rate 2.00 FiO2 21 Capillary Refill : I&O Intake and Output 09/06/19 00:00 Intake Total 1835 ml Output Total 1125 ml Balance 710 ml Intake Oral 1700 ml IV Total 135 ml Output Urine Total 1125 ml # Voids 12 # Bowel Movements 4 General: Alert, Oriented X3, Cooperative HEENT: Atraumatic, PERRLA Neck: Supple, No JVD, No Thyromegaly Lungs: Clear to Auscultation, Normal Air Movement Heart: Normal S1, Normal S2, Other (Systolic murmur at the left sternal border, atrial fibrillation) Abdomen: Normal Bowel Sounds, Soft, No Tenderness, No Hepatosplenomegaly, No Masses Extremities: No Clubbing, No Cyanosis, No Edema, Normal Pulses, No Tenderness/Swelling Skin: No Rashes, No Breakdown, No Significant Lesion Neuro: Normal Gait, Normal Speech, Strength at 5/5 X4 Ext, Normal Tone, Sensation Intact Psych/Mental Status: Mental Status NL, Mood NL Results Lab Laboratory Tests 09/05/19 08:54 09/06/19 03:21 A/P-Cardiology Admission Diagnosis Acute atrial fibrillation Shortness of breath Peripheral edema Hypertension Assessment/Plan Paroxysmal atrial fibrillation status post VINI and cardioversion, went back in the evening to atrial fibrillation, continue with loading with amiodarone, continue on Cardizem and Toprol, we'll attempt another cardioversion today. Low-grade fever, questionable early infiltrate on chest x-ray. Septic workup was initiated, managed by primary care physician Shortness of breath, orthopnea and PND, mild left ventricular systolic dysfunction, valvular heart disease with moderate mitral regurgitation. Mode rate tricuspid regurgitation, left atrium is 5 cm with PA pressure 40 mmHg. Medical therapy is recommended at this time. Hypertension, was on amlodipine and lisinopril HCT, changing medication mon itoring tolerance and response Obesity, BMI 27 Snoring, high risk for sleep apnea. Will need sleep study as an outpatient. Peripheral edema, planning to initiate diuretics. Hyperthyroidism, reevaluate TSH and thyroid panel if needed, managed by primary care physician Status post cataract surgery occurred in January or February 2019 Clinical Quality Measures DVT/VTE Risk/Contraindication: Risk Factor Score Per Nursin RFS Level Per Nursing on Admit: 3=High OLGA URRUTIA MD Sep 06, 2019 07:58
--- NOTE | 2019-09-06 07:59 | Cardiac Procedure Note-CS/ASA ---
Pre-Procedure Note Pre-Op Procedure Note H&P Reviewed The H&P was reviewed, patient examined and no changes noted. Date H&P Reviewed: Sep 06, 2019 Time H&P Reviewed: 07:58 Conscious Sedation Pre-Proced Time 07:58 ASA Score 3 For ASA 3 and 4: Consider anesthesia and medical clearance. Also, for patients with a history of failed moderate sedation consider anesthesia. Airway Lungs Heart ASA score ASA 1: a normal healthy patient ASA 2: a patient with a mild systemic disease (mid diabetes, controlled hypertension, obesity x ASA 3: a patient with a severe systemic disease that limits activity (angina, COPD, prior Myocardial infarction) ASA 4: a patient with an incapacitating disease that is a constant threat to life (CHF, renal failure) ASA 5: a moribund patient not expected to survive 24 hrs. (ruptured aneurysm) ASA 6: a declared brain- patient whose organs are being harvested. For emergent operations, add the letter E after the classification Mallampati Classification Grade 3 Sedation Plan Analgesia, Amnesia, Plan communicated to team members, Discussed options with patient/fam, Discussed risks with patient/fam The patient is an appropriate candidate to undergo the planned procedure, sedation, and anesthesia. The patient immediately re-assessed prior to indication. OLGA URRUTIA MD Sep 06, 2019 07:59
[2019-09-06] MEDS ORDERED: FUROSEMIDE 20 MG (LASIX) TAB PO SCH (09:00)
[2019-09-06] MEDS ORDERED: lisINopril 10 MG (PRINIVIL) TABLET PO SCH (09:00)
--- NOTE | 2019-09-06 09:14 | Diagnostic Imaging Report ---
CLINICAL INDICATION: Patient with dyspnea. EXAM: Chest x-ray PA and lateral views. COMPARISONS: Chest x-ray dated 09/05/2019. FINDINGS: There is interval improved aeration of both lungs with residual mild bibasilar atelectasis versus infiltrate. There is blunting of the costophrenic angles bilaterally and pleural effusions cannot be excluded. There is no pneumothorax. Stable cardiomegaly with no significant pulmonary vascular congestion. The remainder of this exam shows no significant interval change compared to the prior study of comparison. IMPRESSION: 1: There is improved aeration of both lungs with residual mild bibasilar atelectasis versus infiltrate. 2: There are possible small bilateral pleural effusions. Dictated by: Dictated on workstation # [id number]
[2019-09-06] MEDS: APIXABAN 5 MG (ELIQUIS) TABLET PO SCH ×2 (09:28→14:46)
[2019-09-06] MEDS: AMIODARONE 200 MG (CORDARONE) TAB PO SCH ×2 (09:28→14:46)
[2019-09-06] MEDS: PANTOPRAZOLE 40 MG (PROTONIX) TAB PO SCH (09:28)
[2019-09-06] MEDS ORDERED: proPOfol 200 MG/20 ML (DIPRIVAN) VIAL IV ONE (10:03)
[2019-09-06] MEDS ORDERED: NS IV 500 ML 500 ML ONE (10:13)
--- NOTE | 2019-09-06 10:23 | NUR ---
PULLED 500ML NS PER ANESTHESIA FOR CARDIOVERSION.
--- NOTE | 2019-09-06 10:25 | NUR ---
CARDIOVERSION NOTE: 1024: PROVIDERS IN ROOM. SEDATION PER ANESTHESIA. 1025: SHOCKED WITH 200J AND RETURNS TO NSR. 1030: PT IS A/OX4. VITALS STABLE. HE IS SITTING UP IN BED SPEAKING WITH THIS NURSE APPROPRIATELY. FAMILY RETURNED TO ROOM.
--- NOTE | 2019-09-06 10:31 | Cardioversion ---
Cardioversion PROCEDURE PHYSICIAN: Olga Laura DATE OF PROCEDURE: 09/06/19 DIRECT EXTERNAL ELECTRICAL CARDIOVERSION: Indications: Atrial Fibrillation with rapid ventricular rate Preoperative diagnoses: Atrial Fibrillation with rapid ventricular rate Postoperative diagnosis: Sinus rhythm, Successful Electrical Cardioversion History: Patient had cardioversion yesterday, was in sinus rhythm until the evening, I continued with loading with amiodarone and added Cardizem and proceeded with cardioversion again today. Patient has been on oral anticoagulation. Anesthesia: By Anesthesia services Complications: None Specimen: None Contrast: 0 Flouroscopy: none Procedure Details: The patient was brought the analyst microbiology lab after informed consent was taken, all the risks and complications were explained including the risk of stroke. Electrical cardioversion was carried out with anesthesia support with propofol. 200 joules of synchronized shock was delivered through external patches which promptly restored sinus rhythm. The patient tolerated the procedure well. Conclusions: Successful electrical cardioversion with no complication OLGA LAURA MD Sep 06, 2019 10:31
[2019-09-06] MEDS ORDERED: DILTIAZEM 120 MG (CARDIZEM CD) CAP PO SCH (10:45)
--- NOTE | 2019-09-06 10:45 | Anesthesia-General Post-Op ---
MAC Patient Condition Mental Status/LOC: Same as Preop Cardiovascular: Satisfactory Nausea/Vomiting: Absent Respiratory: Satisfactory Pain: Controlled Complications: Absent Post Op Complications Complications None Follow Up Care/Instructions Patient Instructions None needed. Anesthesiology Discharge Order Discharge Order Patient is doing well, no complaints, stable vital signs, no apparent adverse anesthesia problems. No complications reported per nursing. ELYSSA CLARK CRNA Sep 06, 2019 10:45
[2019-09-06] MEDS: cefTRIAXone FOR IV USE 1,000 MG in WATER (STERILE) FOR INJECTION 10 ML IV SCH (11:31)
[2019-09-06] MEDS ORDERED: COLCHICINE 0.6 MG (COLCRYS) TABLET PO ONE (14:00)
--- NOTE | 2019-09-06 14:00 | Progress Note - Hospitalist ---
Subjective HPI/CC On Admission Date Seen by Provider: Sep 06, 2019 Time Seen by Provider: 09:30 Patient is a 74-year-old male with a past medical history of hypertension who was admitted from [facility] ER due to new onset atrial fibrillation with rapid ventricular rate. He reports that he was seen his primary care his admission, Dr. Muro, for a routine checkup when he was noted to have a high heart rate. Per verbal report from the ER his rate was in the 180s. He was then referred to the emergency room at [facility] He was somewhat hypotensive with a blood pressure of 91/40. He was given 1 L of IV fluids which increased his blood pressure and was started on a Cardizem drip. He denies any symptoms including chest pain or palpitations. He does complain of new onset lower extremity edema within the past 2 weeks. He is also developed orthopnea but denies any dyspnea with exertion. Subjective/Events-last exam Pt reports doing well. No complaints. Went back in to a-fib with RVR overnight and now on cardizem gtt. Planning for cardioversion this morning with Dr Laura. Objective Exam Vital Signs Vital Signs Date Time Temp Pulse Resp B/P (MAP) Pulse Ox O2 Delivery O2 Flow Rate FiO2 09/06/19 12:00 37.6 09/06/19 12:00 92 28 129/79 (96) Room Air 09/06/19 11:00 94 09/05/19 21:00 2.00 09/03/19 15:50 21 Capillary Refill : General Appearance: No Apparent Distress, WD/WN Respiratory: Lungs Clear, No Respiratory Distress Cardiovascular: No Murmur, Irregularly Irregular Gastrointestinal: Normal Bowel Sounds, Non Tender, Soft Neurologic/Psychiatric: Alert, Oriented x3 Results/Procedures Lab Laboratory Tests 09/06/19 03:21 Patient resulted labs reviewed. Assessment/Plan Assessment and Plan Assess & Plan/Chief Complaint Atrial Fib with RVR HTN Systolic congestive heart failure Cardiology consulted, appreciate recs s/p cardioversion this 09/04 and plan to do it again today Echo reveals EF of 40% Eliquis for anticoagulation On cardizem gtt Lower extremity edema Echo reveals EF of 40% Gout improved with colchicine Hypomagnesemia Resolved, on protocol Normocytic anemia Will need outpatient work up Hyperthyroidism TSH low but normal T4 Recheck as an outpatient as normal T4 Diagnosis/Problems Diagnosis/Problems (1) Atrial fibrillation with RVR Status: Acute (2) Essential (primary) hypertension Status: Chronic (3) Hypomagnesemia Status: Acute (4) Lower extremity edema Status: Acute Clinical Quality Measures DVT/VTE Risk/Contraindication: Risk Factor Score Per Nursin RFS Level Per Nursing on Admit: 3=High TADEO JOHNSON MD Sep 06, 2019 14:00
[2019-09-06] MEDS ORDERED: APIX5TAB PO (14:20)
[2019-09-06] MEDS ORDERED: POTA10TA6 PO (14:20)
[2019-09-06] MEDS ORDERED: PANT40TA3 PO (14:20)
[2019-09-06] MEDS ORDERED: FURO20TA4 PO (14:20)
[2019-09-06] MEDS ORDERED: MTP25TSR PO (14:20)
[2019-09-06] MEDS ORDERED: LISI10TA2 PO (14:20)
[2019-09-06] MEDS ORDERED: DILT-27 PO (14:20)
[2019-09-06] MEDS ORDERED: AMIO200T4 PO (14:20)
[2019-09-06] MEDS ORDERED: CEPH-507 PO (15:05)
--- NOTE | 2019-09-06 15:07 | Discharge Inst-Simple/Standard ---
Discharge Inst-Standard Patient Instructions/Follow Up Plan of Care/Instructions/FU: Please continue taking medications as written. Please follow-up with Dr. SCHMITT in the next week. Please follow up with Dr. Laura within 2 weeks. Activity as Tolerated: Yes Discharge Diet: Cardiac Diet Return to The Hospital For: Chest pain, shortness of breath, heart racing, if you fall and hit yourhead, lower extremity swelling, weight gain of more than 5 pounds in 2 days, if you feel you're getting worse. Planned Outpatient Orders/Ref. Pneu Vac Indicated: Yes TADEO JOHNSON MD Sep 06, 2019 15:07
--- NOTE | 2019-09-06 16:05 | NUR ---
PT DISCHARGED VIA WHEELCHAIR TO PRIVATE VEHICLE WITH ADULT CHILDREN TO HOME. PT GIVEN DISCHARGE INFORMATION. STRESSED IMPORTANCE OF MEDICATION COMPLIANCE. APPOINTMENT CARD WITH DR URRUTIA OFFICE NUMBER AND PT STATES HE WOULD CALL IN THE MORNING. NIGHT TIME JOSE ANTONIO AND LUIS GIVEN TO PATIENT. ALL QUESTIONS ASKED WITH NO FURTHER CONCERNS VOICED FROM FAMILY OR PATIENT.
== END 2019-09-06 15:55 | disposition home or self-care (01) | DRG 308 ==
LOC: ICU 11:30
PROVIDERS: ADMIT Family Medicine; ATTEND Family Medicine
PROC: 5A2204Z Restoration of Cardiac Rhythm, Single (ICD-10-PCS; principal; 2019-09-04)
DX: I48.0 Paroxysmal atrial fibrillation (principal); I11.0 Hypertensive heart disease with heart failure; I50.21 Acute systolic (congestive) heart failure; I08.1 Rheumatic disorders of both mitral and tricuspid valves; R06.83 Snoring; Z66 Do not resuscitate; M10.9 Gout, unspecified; E83.42 Hypomagnesemia; D64.9 Anemia, unspecified; E05.90 Thyrotoxicosis, unspecified without thyrotoxic crisis or storm; E66.9 Obesity, unspecified; Z68.27 Body mass index [BMI] 27.0-27.9, adult
CPT/HCPCS: 36415; 71045; 71046; 80053; 82962; 83735; 83880; 84145; 84436; 84443; 84484; 85025; 85027; 87040; 87081; 93005; 93306; 93312; 93320; 93325; 94664

== ENCOUNTER → 2019-09-09 | Outpatient (CLI) | payer MEDICARE, OTHER ==
[~2019-09-09] VITALS: Ht 180 cm; Wt 86.0 kg
[~2019-09-09] MED LIST: AMIO200T4 PO; AMLO5TAB9 PO; APIX5TAB PO; ASPI-983 PO; CATHETER FLUSH 10 ML SYR IV PRN; CEPH-507 PO; DILT-27 PO; FURO20TA4 PO; LISI10TA2 PO; LISI1TAB25 PO; MTP25TSR PO; PANT40TA3 PO; POTA10TA6 PO; REGADENOSON 0.4 MG/5 ML SYR (LEXISCAN) IV ONE
[2019-09-09 09:10] VITALS: BP 137/83
--- NOTE | 2019-09-09 17:53 | STRESS TEST ---
DATE OF SERVICE: 09/09/2019 LEXISCAN MYOVIEW STRESS TEST REPORT REFERRING PHYSICIAN: Roney Muro DO Baseline heart rate is 83, baseline blood pressure 137/83. Baseline EKG is sinus rhythm with no ischemic changes. In summary, the patient was injected with 10.01 mCi of technetium-99 Myoview and the resting images were obtained. Then, the patient received 0.4 mg of Lexiscan followed by 32.0 mCi of technetium-99 Myoview. The resting and stress images were reviewed and compared in the short axis, horizontal long axis, and vertical long axis views. Review of the images showed diaphragmatic attenuation with good radiotracer uptake, typical male pattern. No significant ischemia or infarction. SSS is 2, SDS 2, TID value 1.08. On the gated images, the left ventricle appeared to be normal size with normal contractility. Calculated ejection fraction 49%. CONCLUSIONS: 1. The patient tolerated Lexiscan well. 2. Diaphragmatic attenuation with typical male pattern with no significant ischemia or infarction. 3. Normal left ventricular size with normal contractility. Calculated ejection fraction 49%. Job ID: [id number] DocumentID: [id number] Dictated Date: 09/09/2019 15:29:49 Banquet Lead Date: 09/09/2019 17:53:20 Dictated By: OLGA URRUTIA MD
== END ==
LOC: CARD 07:14
PROVIDERS: ATTEND Internal Medicine Cardiovascular Disease
DX: I11.0 Hypertensive heart disease with heart failure (principal); I50.9 Heart failure, unspecified; I48.20 Chronic atrial fibrillation, unspecified; I34.0 Nonrheumatic mitral (valve) insufficiency
CPT/HCPCS: 78452; 93017

== ENCOUNTER 2019-10-22 11:33 | Inpatient (IN) | payer MEDICARE, OTHER ==
[~2019-10-22] VITALS: Ht 180 cm; Wt 78.5 kg
[2019-10-22] VITALS (22 sets, daily range): BP systolic 90–124; BP diastolic 54–74
[~2019-10-22 11:33] MED LIST changes: -CATHETER FLUSH 10 ML SYR IV PRN; -REGADENOSON 0.4 MG/5 ML SYR (LEXISCAN) IV ONE
[2019-10-22 11:59] LABS: BASOPHILS % (AUTO) 1 % (0-10); EOSINOPHILS % (AUTO) 0 % (0-10); LYMPHOCYTES % (AUTO) 15 % (12-44); MEAN CORPUSCULAR HEMOGLOBIN 20 PG (25-34); MEAN CORPUSCULAR HGB CONC 28 G/DL (32-36); MEAN CORPUSCULAR VOLUME 72 FL (80-99); MEAN PLATELET VOLUME 9.5 FL (7.4-10.4); MONOCYTES # (AUTO) 0.7 X 10^3 (0.0-1.0); MONOCYTES % (AUTO) 11 % (0-12); NEUTROPHILS # (AUTO) 4.5 X 10^3 (1.8-7.8); NEUTROPHILS % (AUTO) 73 % (42-75); PLATELET COUNT 158 10^3/uL (130-400); RED CELL DISTRIBUTION WIDTH 18.1 % (10.0-14.5); WHITE BLOOD COUNT 6.2 10^3/uL (4.3-11.0)
[2019-10-22 12:00] LABS: HEMATOCRIT 11 % (40-54); HEMOGLOBIN 2.9 G/DL (13.3-17.7)
--- OUTSIDE RECORDS SUMMARY | 2019-10-22 12:07 | XMS REPORT | Continuity of Care Document ---
Author Organization Unknown Address Unknown Phone Unavailable Allergies Active Description Code Type Severity Reaction Onset Reported/Identified Relationship to Patient Clinical Status Yes NO KNOWN DRUG ALLERGIES UNKNOWN NO KNOWN DRUG ALLERG Yes NO KNOWN DRUG ALLERGIES UNKNOWN UNKNOWN Yes No Known Drug Allergies [id number] Drug Allergy Unknown N/A 09/03/2019 Medications Medication Packaging Start Date St op Date Route Dosage Sig Metoprolol IV soln 5mg/5cc vial (Lopressor ) MG 09/03/2019 09/03/2019 ONCE&0911 Normal SALINE 0.9 % (NS 100cc) (plain bag) ml 09/03/2019 09/06/2019 CONTINUOUSEVERY 0 Hour DILTIAZEM BOLUS VIAL INJ 25 MG/5CC (CARDIZEM BOLUS VIAL) MG 09/03/2019 09/03/2019 ONCE&0940 NORMAL SALINE 1000CC IV BAG INJ 0.9 % (NS 1000CC IV BAG) ml 09/03/2019 09/03/2019 ONCE&0940 ENOXAPARIN SYRINGE INJ 100 MG (LOVENOX SYR SHYANN) MG 09/03/2019 09/03/2019 ONCE&0947 MAGNESIUM SULFATE VIAL INJ 1 GM/2CC (MAG SULFATE 2CC VIAL) GM 09/03/2019 09/03/2019 ONCE&1003 DIPHENHYDRAMINE VIAL INJ 50 MG/CC (BENADRYL VIAL) MG 09/03/2019 09/03/2019 ONCE&1037 NORMAL SALINE 1000CC IV BAG INJ 0.9 % (NS 1000CC IV BAG) ml 09/03/2019 09/18/2019 CONTINUOUSEVERY 0 Hour Problems Date Dx Coded Attending Type Code Diagnosis Diagnosed By 02/12/2018 W 401.9 UNSP ECIFIED ESSENTIAL HYPERTENSION 02/12/2018 W 790.21 IMP AIRED FASTING GLUCOSE 02/12/2018 W I10 ESSENT IAL (PRIMARY) HYPERTENSION 02/12/2018 W R73.01 IMP AIRED FASTING GLUCOSE 08/18/2018 Roney Muro W 401.9 UNSPECIFIED ESSENTIAL HYPERTENSION 08/18/2018 Roney Muro W I10 ESSENTIAL (PRIMARY) HYPERTENSION 08/18/2018 W 401.9 UNSP ECIFIED ESSENTIAL HYPERTENSION 08/18/2018 W I10 ESSENT IAL (PRIMARY) HYPERTENSION 08/18/2018 Roney Muro W 401.9 UNSPECIFIED ESSENTIAL HYPERTENSION 08/18/2018 PaRoney de jesus W I10 ESSENTIAL (PRIMARY) HYPERTENSION 02/16/2019 PaRoney de jesus W 401.9 UNSPECIFIED ESSENTIAL HYPERTENSION 02/16/2019 JinaRoney W I10 ESSENTIAL (PRIMARY) HYPERTENSION 02/16/2019 Jina Roney W 401.9 UNSPECIFIED ESSENTIAL HYPERTENSION 02/16/2019 JustoRoney de jesus W 790.21 IMPAIRED FASTING GLUCOSE 02/16/2019 JinaRoney W I10 ESSENTIAL (PRIMARY) HYPERTENSION 02/16/2019 Jina Roney Allen R73.01 IMPAIRED FASTING GLUCOSE 02/16/2019 W 401.9 UNSP ECIFIED ESSENTIAL HYPERTENSION 02/16/2019 W 790.21 IMP AIRED FASTING GLUCOSE 02/16/2019 W I10 ESSENT IAL (PRIMARY) HYPERTENSION 02/16/2019 W R73.01 IMP AIRED FASTING GLUCOSE 02/16/2019 JustoRoney de jesus W 401.9 UNSPECIFIED ESSENTIAL HYPERTENSION 02/16/2019 Roney Muro 790.21 IMPAIRED FASTING GLUCOSE 02/16/2019 JinaRoney I10 ESSENTIAL (PRIMARY) HYPERTENSION 02/16/2019 JinaRoney R73.01 IMPAIRED FASTING GLUCOSE 09/03/2019 LEISURE, BECKYIETA W 427.31 ATRIAL FIBRILLATION 09/03/2019 LEISURE, LYNIETA W I48.91 UNSPECIFIED ATRIAL FIBRILLATION 09/03/2019 LEISURE, LYNIETA W 427.31 ATRIAL FIBRILLATION 09/03/2019 LEISURE, LYNIETA W I48.91 UNSPECIFIED ATRIAL FIBRILLATION 09/03/2019 LEISURE, LYNIETA W 427.31 ATRIAL FIBRILLATION 09/03/2019 LEISURE, LYNIETA W I10 ESSENTIAL (PRIMARY) HYPERTENSION 09/03/2019 LEISURE, LYNIETA W I48.91 UNSPECIFIED ATRIAL FIBRILLATION 09/03/2019 LEISURE, LYNIETA W R73.01 IMPAIRED FASTING GLUCOSE 09/04/2019 ALEX LESLIE, TADEO Perez 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 0 HYPERTENSIVE HEART DISEASE WITH HEART FA 09/04/2019 TADEO JOHNSON MD Ot I48. 91 UNSPECIFIED ATRIAL FIBRILLATION 09/04/2019 TADEO JOHNSON MD Ot I50. 21 ACUTE SYSTOLIC (CONGESTIVE) HEART FAILUR 09/04/2019 TADEO JOHNSON MD Ot R06. 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 0 HYPERTENSIVE HEART DISEASE WITH HEART FA 09/04/2019 TADEO JOHNSON MD Ot I48. 91 UNSPECIFIED ATRIAL FIBRILLATION 09/04/2019 TADEO JOHNSON MD Ot I50. 21 ACUTE SYSTOLIC (CONGESTIVE) HEART FAILUR 09/04/2019 TADEO JOHNSON MD Ot R06. 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 0 HYPERTENSIVE HEART DISEASE WITH HEART FA 09/05/2019 TADEO JOHNSON MD Ot I48. 91 UNSPECIFIED ATRIAL FIBRILLATION 09/05/2019 TADEO JOHNSON MD Ot I50. 21 ACUTE SYSTOLIC (CONGESTIVE) HEART FAILUR 09/05/2019 TADEO JOHNSON MD Ot R06. 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 0 HYPERTENSIVE HEART DISEASE WITH HEART FA 09/06/2019 TADEO JOHNSON MD Ot I48. 91 UNSPECIFIED ATRIAL FIBRILLATION 09/06/2019 TADEO JOHNSON MD Ot I50. 21 ACUTE SYSTOLIC (CONGESTIVE) HEART FAILUR 09/06/2019 TADEO JOHNSON MD Ot R06. 83 SNORING 09/06/2019 TADEO JOHNSON MD Ot Z66 DO NOT RESUSCITATE 09/06/2019 TADEO JOHNSON MD Ot D64. 9 ANEMIA, UNSPECIFIED 09/06/2019 TADEO JOHNSON MD Ot E05. 90 THYROTOXICOSIS, UNSP WITHOUT THYROTOXIC 09/06/2019 TADEO JOHNSON MD Ot E66. 9 OBESITY, UNSPECIFIED 09/06/2019 TADEO JOHNSON MD Ot E83. 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 0 HYPERTENSIVE HEART DISEASE WITH HEART FA 09/06/2019 TADEO JOHNSON MD Ot I48. 0 PAROXYSMAL ATRIAL FIBRILLATION 09/06/2019 TADEO JOHNSON MD Ot I50. 21 ACUTE SYSTOLIC (CONGESTIVE) HEART FAILUR 09/06/2019 TADEO JOHNSON MD Ot M10. 9 GOUT, UNSPECIFIED 09/06/2019 TADEO JOHNSON MD Ot R06. 83 SNORING 09/06/2019 TADEO JOHNSON MD Ot Z66 DO NOT RESUSCITATE 09/06/2019 TADEO JOHNSON MD Ot Z68. 27 BODY MASS INDEX (BMI) 27.0-27.9, ADULT 09/10/2019 OLGA URRUTIA MD Ot I11. 0 HYPERTENSIVE HEART DISEASE WITH HEART FA 09/10/2019 OLGA URRUTIA MD Ot I34. 0 NONRHEUMATIC MITRAL (VALVE) INSUFFICIENC 09/10/2019 OLGA RURUTIA MD Ot I48. 20 CHRONIC ATRIAL FIBRILLATION, UNSPECIFIED 09/10/2019 OLGA URRUTIA MD Ot I50. 9 HEART FAILURE, UNSPECIFIED 09/15/2019 OLGA URRUTIA MD Ot I11. 0 HYPERTENSIVE HEART DISEASE WITH HEART FA 09/15/2019 OLGA URRUTIA MD Ot I34. 0 NONRHEUMATIC MITRAL (VALVE) INSUFFICIENC 09/15/2019 OLGA URRUTIA MD Ot I48. 20 CHRONIC ATRIAL FIBRILLATION, UNSPECIFIED 09/15/2019 OLGA URRUTIA MD Ot I50. 9 HEART FAILURE, UNSPECIFIED 09/29/2019 OLGA URRUTIA MD Ot I11. 0 HYPERTENSIVE HEART DISEASE WITH HEART FA 09/29/2019 OLGA URRUTIA MD, Ot I34. 0 NONRHEUMATIC MITRAL (VALVE) INSUFFICIENC 09/29/2019 OLGA URRUTIA MD, Ot I48. 20 CHRONIC ATRIAL FIBRILLATION, UNSPECIFIED 09/29/2019 OLGA URRUTIA MD, Ot I50. 9 HEART FAILURE, UNSPECIFIED Procedures Code Description Performed By Per formed On [id number] RE STORATION OF CARDIAC RHYTHM, SINGLE 09/04/2019 Results Test Result Range Hemoglobin A1C - 09/20/16 08:49 % A1C 6.10 % 5.40-6.60 AvGlu 141 mg/dL 70-110 PSA Yearly Screen - 03/21/17 09:22 PSA TOTAL 2.3 ng/mL 0.0-4.0 Lipid Panel - 02/12/18 09:10 C/HDL 3.2 3.7-6.7 Cholesterol 149 mg/dL 100-240 HDL 47 mg/dL 30-85 LDL-Calculated 81 mg/dL 0-100 Trig 105 mg/dL 35-160 VLDL 21 mg/dL 0-42 Hemoglobin A1C - 08/18/18 08:46 % A1C 5.30 % 5.40-6.60 AvGlu 111 mg/dL 70-110 Lipid Panel - 02/16/19 09:00 C/HDL 3.3 3.7-6.7 Cholesterol 134 mg/dL 100-240 HDL 41 mg/dL 30-85 LDL-Calculated 77 mg/dL 0-100 Trig 79 mg/dL 35-160 VLDL 16 mg/dL 0-42 Comprehensive Metabolic Panel - 02/16/19 09:00 Albumin 4.0 g/dL 3.6-5.1 ALP 94 U/L 35-130 ALT 56 U/L 6-45 Anion Gap 14 6-14 AST 53 U/L 2-40 BUN 29 mg/dL 5-25 Calcium 9.8 mg/dL 8.3-10.4 Chloride 110 mmol/L 95-114 CO2 22 mEq/L 22-33 Creat 1.05 mg/dL 0.50-1.50 eGFR 69 mL/min/1.73m2 >59 Globulin 3.3 g/dL 2.3-3.5 Glucose 113 mg/dL 70-110 Osmo 299 280-295 Potassium 4.4 mmol/L 3.5-5.3 Sodium 142 mmol/L 134-148 TBil 0.8 mg/dL 0.2-1.2 TP 7.3 g/dL 6.0-8.3 Thyroid Stimulating Hormone - 09/03/19 0 9:13 TSH 0.05 mIU/mL 0.32-5.00 Methicillin resistant Staphylococcus aur eus (MRSA) screening culture - 09/03/19 11:50 Methicillin resistant Staphylococcus aureus (MRSA) scr eening culture NEG NRG Capillary blood glucose measurement by g lucometer (mass/volume) - 09/03/19 15:33 Capillary blood glucose measurement by glucometer (mas s/volume) 96 mg/dL 70-110 Automated blood complete blood count (he mogram) panel - 09/03/19 16:21 Blood leukocytes automated count (number/volume) 7.6 10*3/uL 4.3-11.0 Blood erythrocytes automated count (number/volume) 4.00 10*6/uL 4.35-5.85 Venous blood hemoglobin measurement (mass/volume) 10.0 g/dL 13.3-17.7 Blood hematocrit (volume fraction) 33 % 40-54 Automated erythrocyte mean corpuscular volume 82 [ foz_us] 80-99 Automated erythrocyte mean corpuscular h emoglobin (mass per erythrocyte) 25 pg 25-34 Automated erythrocyte mean corpuscular h emoglobin concentration measurement (mass/volume) 31 g/dL 32-36 Automated erythrocyte distribution width ratio 16. 4 % 10.0- 14.5 Automated blood platelet count (count/volume) 198 10*3/uL 130-400 Automated blood platelet mean volume measurement 10.8 [foz_us] 7.4-10.4 Comprehensive metabolic panel - 09/03/19 16:21 Serum or plasma sodium measurement (moles/volume) 140 mmol/L 135-145 Serum or plasma potassium measurement (moles/volume) 4.1 mmol/L 3.6-5.0 Serum or plasma chloride measurement (moles/volume) 110 mmol/L 98-107 Carbon dioxide 15 mmol/L 21-32 Serum or plasma anion gap determination (moles/volume) 15 mmol/L 5-14 Serum or plasma urea nitrogen measurement (mass/volume ) 17 mg/dL 7-18 Serum or plasma creatinine measurement (mass/volume) 0.89 mg/dL 0.60-1.30 Serum or plasma urea nitrogen/creatinine mass ratio 19 NRG Serum or plasma creatinine measurement w ith calculation of estimated glomerular filtration rate > NRG Serum or plasma glucose measurement (mass/volume) 101 mg/dL 70-105 Serum or plasma calcium measurement (mass/volume) 9.9 mg/dL 8.5-10.1 Serum or plasma total bilirubin measurement (mass/volu me) 1.4 mg/dL 0.1-1.0 Serum or plasma alkaline phosphatase thang surement (enzymatic activity/volume) 80 U/L 40-136 Serum or plasma aspartate aminotransfera se measurement (enzymatic activity/volume) 18 U/L 5-34 Serum or plasma alanine aminotransferase measurement (enzymatic activity/volume) 14 U/L 0-55 Serum or plasma protein measurement (mass/volume) 7.4 g/dL 6.4-8.2 Serum or plasma albumin measurement (mass/volume) 4.0 g/dL 3.2-4.5 CALCIUM CORRECTED 9.9 mg/dL 8.5-10.1 Serum or plasma troponin i.cardiac measu rement (mass/volume) - 09/03/19 16:21 Serum or plasma troponin i.cardiac measurement (mass/v olume) < ng/mL <0.028 Capillary blood glucose measurement by g lucometer (mass/volume) - 09/03/19 20:09 Capillary blood glucose measurement by glucometer (mas s/volume) 176 mg/dL 70-110 Automated blood complete blood count (he mogram) panel - 09/04/19 03:15 Blood leukocytes automated count (number/volume) 6.1 10*3/uL 4.3-11.0 Blood erythrocytes automated count (number/volume) 3.81 10*6/uL 4.35-5.85 Venous blood hemoglobin measurement (mass/volume) 9.5 g/dL 13.3-17.7 Blood hematocrit (volume fraction) 31 % 40-54 Automated erythrocyte mean corpuscular volume 81 [ foz_us] 80-99 Automated erythrocyte mean corpuscular h emoglobin (mass per erythrocyte) 25 pg 25-34 Automated erythrocyte mean corpuscular h emoglobin concentration measurement (mass/volume) 31 g/dL 32-36 Automated erythrocyte distribution width ratio 16. 7 % 10.0- 14.5 Automated blood platelet count (count/volume) 183 10*3/uL 130-400 Automated blood platelet mean volume measurement 10.0 [foz_us] 7.4-10.4 Comprehensive metabolic panel - 09/04/19 03:15 Serum or plasma sodium measurement (moles/volume) 140 mmol/L 135-145 Serum or plasma potassium measurement (moles/volume) 4.0 mmol/L 3.6-5.0 Serum or plasma chloride measurement (moles/volume) 111 mmol/L 98-107 Carbon dioxide 19 mmol/L 21-32 Serum or plasma anion gap determination (moles/volume) 10 mmol/L 5-14 Serum or plasma urea nitrogen measurement (mass/volume ) 23 mg/dL 7-18 Serum or plasma creatinine measurement (mass/volume) 1.19 mg/dL 0.60-1.30 Serum or plasma urea nitrogen/creatinine mass ratio 19 NRG Serum or plasma creatinine measurement w ith calculation of estimated glomerular filtration rate 60 NRG Serum or plasma glucose measurement (mass/volume) 112 mg/dL 70-105 Serum or plasma calcium measurement (mass/volume) 9.2 mg/dL 8.5-10.1 Serum or plasma total bilirubin measurement (mass/volu me) 1.1 mg/dL 0.1-1.0 Serum or plasma alkaline phosphatase thang surement (enzymatic activity/volume) 70 U/L 40-136 Serum or plasma aspartate aminotransfera se measurement (enzymatic activity/volume) 13 U/L 5-34 Serum or plasma alanine aminotransferase measurement (enzymatic activity/volume) 11 U/L 0-55 Serum or plasma protein measurement (mass/volume) 6.6 g/dL 6.4-8.2 Serum or plasma albumin measurement (mass/volume) 3.5 g/dL 3.2-4.5 CALCIUM CORRECTED 9.6 mg/dL 8.5-10.1 Serum or plasma troponin i.cardiac measu rement (mass/volume) - 09/04/19 03:15 Serum or plasma troponin i.cardiac measurement (mass/v olume) < ng/mL <0.028 THYROID STIMULATING HORMONE - 09/04/19 0 3:15 THYROID STIMULATING HORMONE 0.05 u[iU]/mL 0.35-4.94 Magnesium - 09/04/19 03:15 Magnesium 1.7 mg/dL 1.6-2.4 Serum or plasma lithium measurement (mol es/volume) - 09/04/19 03:15 BNP PT 241.0 pg/mL <100.0 THYROXINE T4 - 09/04/19 03:15 THYROXINE T4 8.5 % 5.5-12.0 Capillary blood glucose measurement by g lucometer (mass/volume) - 09/04/19 11:25 Capillary blood glucose measurement by glucometer (mas s/volume) 133 mg/dL 70-110 Capillary blood glucose measurement by g lucometer (mass/volume) - 09/04/19 15:58 Capillary blood glucose measurement by glucometer (mas s/volume) 132 mg/dL 70-110 Capillary blood glucose measurement by g lucometer (mass/volume) - 09/04/19 20:37 Capillary blood glucose measurement by glucometer (mas s/volume) 123 mg/dL 70-110 Capillary blood glucose measurement by g lucometer (mass/volume) - 09/05/19 06:24 Capillary blood glucose measurement by glucometer (mas s/volume) 122 mg/dL 70-110 PROCALCITONIN (PCT) - 09/05/19 08:52 PROCALCITONIN (PCT) 0.21 ng/mL <0.10 Automated blood complete blood count (he mogram) panel - 09/05/19 08:54 Blood leukocytes automated count (number/volume) 7.4 10*3/uL 4.3-11.0 Blood erythrocytes automated count (number/volume) 4.08 10*6/uL 4.35-5.85 Venous blood hemoglobin measurement (mass/volume) 10.0 g/dL 13.3-17.7 Blood hematocrit (volume fraction) 33 % 40-54 Automated erythrocyte mean corpuscular volume 82 [ foz_us] 80-99 Automated erythrocyte mean corpuscular h emoglobin (mass per erythrocyte) 25 pg 25-34 Automated erythrocyte mean corpuscular h emoglobin concentration measurement (mass/volume) 30 g/dL 32-36 Automated erythrocyte distribution width ratio 16. 3 % 10.0- 14.5 Automated blood platelet count (count/volume) 185 10*3/uL 130-400 Automated blood platelet mean volume measurement 11.0 [foz_us] 7.4-10.4 Comprehensive metabolic panel - 09/05/19 08:54 Serum or plasma sodium measurement (moles/volume) 139 mmol/L 135-145 Serum or plasma potassium measurement (moles/volume) 4.1 mmol/L 3.6-5.0 Serum or plasma chloride measurement (moles/volume) 110 mmol/L 98-107 Carbon dioxide 15 mmol/L 21-32 Serum or plasma anion gap determination (moles/volume) 14 mmol/L 5-14 Serum or plasma urea nitrogen measurement (mass/volume ) 22 mg/dL 7-18 Serum or plasma creatinine measurement (mass/volume) 1.21 mg/dL 0.60-1.30 Serum or plasma urea nitrogen/creatinine mass ratio 18 NRG Serum or plasma creatinine measurement w ith calculation of estimated glomerular filtration rate 58 NRG Serum or plasma glucose measurement (mass/volume) 123 mg/dL 70-105 Serum or plasma calcium measurement (mass/volume) 9.3 mg/dL 8.5-10.1 Serum or plasma total bilirubin measurement (mass/volu me) 1.1 mg/dL 0.1-1.0 Serum or plasma alkaline phosphatase thang surement (enzymatic activity/volume) 72 U/L 40-136 Serum or plasma aspartate aminotransfera se measurement (enzymatic activity/volume) 12 U/L 5-34 Serum or plasma alanine aminotransferase measurement (enzymatic activity/volume) 11 U/L 0-55 Serum or plasma protein measurement (mass/volume) 7.0 g/dL 6.4-8.2 Serum or plasma albumin measurement (mass/volume) 3.6 g/dL 3.2-4.5 CALCIUM CORRECTED 9.6 mg/dL 8.5-10.1 Bacterial blood culture - 09/05/19 08:54 Bacterial blood culture NG NRG Bacterial blood culture - 09/05/19 08:57 Bacterial blood culture NG NRG Capillary blood glucose measurement by g lucometer (mass/volume) - 09/05/19 12:21 Capillary blood glucose measurement by glucometer (mas s/volume) 148 mg/dL 70-110 Capillary blood glucose measurement by g lucometer (mass/volume) - 09/05/19 15:32 Capillary blood glucose measurement by glucometer (mas s/volume) 117 mg/dL 70-110 Capillary blood glucose measurement by g lucometer (mass/volume) - 09/05/19 21:07 Capillary blood glucose measurement by glucometer (mas s/volume) 125 mg/dL 70-110 Complete blood count (CBC) with automate d white blood cell (WBC) differential - 09/06/19 03:21 Blood leukocytes automated count (number/volume) 7.9 10*3/uL 4.3-11.0 Blood erythrocytes automated count (number/volume) 4.19 10*6/uL 4.35-5.85 Venous blood hemoglobin measurement (mass/volume) 10.2 g/dL 13.3-17.7 Blood hematocrit (volume fraction) 34 % 40-54 Automated erythrocyte mean corpuscular volume 80 [ foz_us] 80-99 Automated erythrocyte mean corpuscular h emoglobin (mass per erythrocyte) 24 pg 25-34 Automated erythrocyte mean corpuscular h emoglobin concentration measurement (mass/volume) 30 g/dL 32-36 Automated erythrocyte distribution width ratio 16. 5 % 10.0- 14.5 Automated blood platelet count (count/volume) 217 10*3/uL 130-400 Automated blood platelet mean volume measurement 10.6 [foz_us] 7.4-10.4 Automated blood neutrophils/100 leukocytes 66 % 42-75 Automated blood lymphocytes/100 leukocytes 18 % 12-44 Blood monocytes/100 leukocytes 16 % 0-12 Automated blood eosinophils/100 leukocytes 1 % 0-10 Automated blood basophils/100 leukocytes 0 % 0-10 Blood neutrophils automated count (number/volume) 5.2 10*3 1.8-7.8 Blood lymphocytes automated count (number/volume) 1.4 10*3 1.0-4.0 Blood monocytes automated count (number/volume) 1. 2 10*3 0.0-1.0 Automated eosinophil count 0.1 10*3/uL 0 .0-0.3 Automated blood basophil count (count/volume) 0.0 10*3/uL 0.0-0.1 Comprehensive metabolic panel - 09/06/19 03:21 Serum or plasma sodium measurement (moles/volume) 140 mmol/L 135-145 Serum or plasma potassium measurement (moles/volume) 4.1 mmol/L 3.6-5.0 Serum or plasma chloride measurement (moles/volume) 109 mmol/L 98-107 Carbon dioxide 18 mmol/L 21-32 Serum or plasma anion gap determination (moles/volume) 13 mmol/L 5-14 Serum or plasma urea nitrogen measurement (mass/volume ) 24 mg/dL 7-18 Serum or plasma creatinine measurement (mass/volume) 1.25 mg/dL 0.60-1.30 Serum or plasma urea nitrogen/creatinine mass ratio 19 NRG Serum or plasma creatinine measurement w ith calculation of estimated glomerular filtration rate 56 NRG Serum or plasma glucose measurement (mass/volume) 108 mg/dL 70-105 Serum or plasma calcium measurement (mass/volume) 9.5 mg/dL 8.5-10.1 Serum or plasma total bilirubin measurement (mass/volu me) 0.9 mg/dL 0.1-1.0 Serum or plasma alkaline phosphatase thang surement (enzymatic activity/volume) 72 U/L 40-136 Serum or plasma aspartate aminotransfera se measurement (enzymatic activity/volume) 12 U/L 5-34 Serum or plasma alanine aminotransferase measurement (enzymatic activity/volume) 9 U/L 0-55 Serum or plasma protein measurement (mass/volume) 7.2 g/dL 6.4-8.2 Serum or plasma albumin measurement (mass/volume) 3.6 g/dL 3.2-4.5 CALCIUM CORRECTED 9.8 mg/dL 8.5-10.1 Capillary blood glucose measurement by g lucometer (mass/volume) - 09/06/19 11:15 Capillary blood glucose measurement by glucometer (mas s/volume) 98 mg/dL 70-110 Complete blood count (CBC) with automate d white blood cell (WBC) differential - 10/22/19 11:46 Blood leukocytes automated count (number/volume) 6.2 10*3/uL 4.3-11.0 Blood erythrocytes automated count (number/volume) 1.46 10*6/uL 4.35-5.85 Venous blood hemoglobin measurement (mass/volume) 2.9 g/dL 13.3-17.7 Blood hematocrit (volume fraction) 11 % 40-54 Automated erythrocyte mean corpuscular volume 72 [ foz_us] 80-99 Automated erythrocyte mean corpuscular h emoglobin (mass per erythrocyte) 20 pg 25-34 Automated erythrocyte mean corpuscular h emoglobin concentration measurement (mass/volume) 28 g/dL 32-36 Automated erythrocyte distribution width ratio 18. 1 % 10.0- 14.5 Automated blood platelet count (count/volume) 158 10*3/uL 130-400 Automated blood platelet mean volume measurement 9.5 [foz_us] 7.4-10.4 Automated blood neutrophils/100 leukocytes 73 % 42-75 Automated blood lymphocytes/100 leukocytes 15 % 12-44 Blood monocytes/100 leukocytes 11 % 0-12 Automated blood eosinophils/100 leukocytes 0 % 0-10 Automated blood basophils/100 leukocytes 1 % 0-10 Blood neutrophils automated count (number/volume) 4.5 10*3 1.8-7.8 Blood lymphocytes automated count (number/volume) 1.0 10*3 1.0-4.0 Blood monocytes automated count (number/volume) 0. 7 10*3 0.0-1.0 Automated eosinophil count 0.0 10*3/uL 0 .0-0.3 Automated blood basophil count (count/volume) 0.0 10*3/uL 0.0-0.1 Encounters ACCT No. Visit Date/Time Discharge Status Pt. Type Provider Facility Loc./Unit Complaint [id number] 09/17/2019 13:31:00 09/17/2019 23:59 :00 DIS Outpatient JustoRoney de jesus [id number] 09/03/2019 13:03:00 09/03/2019 23:59 :00 DIS Outpatient Roney Muro [id number] 09/03/2019 08:56:00 09/03/2019 10:55 :00 DIS Outpatient [id number] [id number] 02/16/2019 08:30:00 02/16/2019 23:59: 00 DIS Outpatient Roney Muro [id number] 08/18/2018 08:43:00 08/18/2018 23:59: 00 DIS Outpatient Roney Muro [id number] 02/12/2018 08:58:00 02/12/2018 23:59: 00 DIS Outpatient Roney Muro [id number] 03/21/2017 09:17:00 03/21/2017 23:59: 00 DIS Outpatient Roney Muro [id number] 09/20/2016 08:45:00 09/20/2016 23:59: 00 DIS Outpatient JustoRoney de jesus [id number] 09/03/2019 09:13:10 Document Registration [id number] 02/16/2019 08:03:00 Document Registration [id number] 08/18/2018 08:06:00 Document Registration [id number] 02/12/2018 08:28:00 Document Registration [id number] 09/09/2019 07:45:00 02/05/2 020 23:59:59 CLS Outpatient RENAN LESLIE, OLGA Castellon [facility] CARD CHF,MITRAL REGURGITATIO N,HTN [id number] 09/03/2019 11:30:00 15:55:00 DIS Inpatient ALEX LESLIE, TADEO Perez [facility] ICU AFIB W RVR [id number] 10/22/2019 12:02:00 Document Registration
--- NOTE | 2019-10-22 12:09 | ED Chest Pain ---
General Chief Complaint: Cardiac/General Problems Stated Complaint: SOA Source: patient Exam Limitations: no limitations History of Present Illness Date Seen by Provider: Oct 22, 2019 Time Seen by Provider: 11:44 Initial Comments Here with intermittent chest pain over the last few days to few weeks. States that he has increasing short of breath with activity and sometimes gets chest pain with activity. 3 weeks ago he did not have this problem but now he does. Looks rather pale but denies blood in his stool or urine. Denies fevers, chills, nausea, vomiting or diarrhea. Does admit to some weakness. Seen by his primary care provider this morning and discussed with Dr. Laura who wanted him seen in the ER. Patient sent here for further evaluation. Intermittent chest pressure that is retrosternal. Last chest pain was an hour ago and has resolved. Timing/Duration: other (worsening over 3 weeks) Severity/Quality: moderate, pressure Location: substernal, central Radiation: no radiation Activities at Onset: activity Prior CP/Workup: cardiac cath, echocardiography ASA po HOME HEALTH SCHEDULER: No NTG SL HOME HEALTH SCHEDULER: No Associated Symptoms: No abdominal pain, No back pain, No diaphoresis, No dizziness; edema, fatigue; No fever/chills, No headache, No heartburn, No nausea/vomiting; shortness of breath, weakness Allergies and Home Medications Allergies Coded Allergies: No Known Drug Allergies (Unverified , 09/03/19) Home Medications Amiodarone HCl 200 Mg Tablet, 200 MG PO UD Take 2 tabs twice daily for one week then take 1 tab twice daily Prescribed by: OLGA LAURA on 09/06/19 1420 Apixaban 5 Mg Tablet, 5 MG PO BID Prescribed by: OLGA LAURA on 09/06/19 1420 Cephalexin 500 Mg Capsule, 500 MG PO BID Prescribed by: TADEO JOHNSON on 09/06/19 1505 Diltiazem HCl 120 Mg Cap.er.24h, 120 MG PO DAILY Prescribed by: OLGA LAURA on 09/06/19 1420 Furosemide 20 Mg Tablet, 20 MG PO DAILY Prescribed by: OLGA LAURA on 09/06/19 1420 Lisinopril 10 Mg Tablet, 10 MG PO DAILY Prescribed by: OLGA LAURA on 09/06/19 1420 Metoprolol Succinate 25 Mg Tab.er.24h, 25 MG PO DAILY Prescribed by: OLGA LAURA on 09/06/19 142 Pantoprazole Sodium 40 Mg Tablet.dr, 40 MG PO DAILY Prescribed by: OLGA LAURA on 09/06/19 142 Potassium Chloride 10 Meq Tablet.er, 10 MEQ PO DAILY@0900 Prescribed by: OLGA LAURA on 09/06/19 142 Patient Home Medication List Home Medication List Reviewed: Yes Review of Systems Review of Systems Constitutional: see HPI; No chills, No fever; weakness EENTM: No Symptoms Reported Respiratory: See HPI, SOA With Exertion; Denies Wheezing Cardiovascular: Chest Pain, Edema Gastrointestinal: No Symptoms Reported Genitourinary: No Symptoms Reported Musculoskeletal: No muscle pain; muscle weakness Skin: change in color; No lesions Psychiatric/Neurological: No Symptoms Reported All Other Systems Reviewed Negative Unless Noted: Yes Past Xgsagha-Ymirho-Ktqned Hx Past Med/Social Hx: Reviewed Nursing Past Med/Soc Hx Patient Social History Alcohol Use: Rarely Uses Recreational Drug Use: No Smoking Status: Former Smoker Former Smoker, Quit: Oct 11, 1994 Recent Foreign Travel: No Contact w/Someone Who Travel: No Recent Hopitalizations: No Physical Abuse: No Sexual Abuse: No Mistreated: No Fear: No Immunizations Up To Date Tetanus Booster (TDap): Unknown Date of Influenza Vaccine: May 05, 2019 Seasonal Allergies Seasonal Allergies: No Past Medical History Surgeries: Yes (r knee, eye sx, cardioversion) Eye Surgery, Joint Replacement, Orthopedic Respiratory: No Cardiac: Yes (congestive heart failure) Atrial Fibrillation, Hypertension Neurological: No Genitourinary: No Gastrointestinal: No Musculoskeletal: Yes Gout Endocrine: No HEENT: No Cancer: No Psychosocial: No Integumentary: No Blood Disorders: No Family Medical History Reviewed Nursing Family Hx Patient reports no known family medical history. Physical Exam Vital Signs Vital Signs - First Documented 10/22/19 11:51 Temp 36.8 Pulse 101 Resp 20 B/P (MAP) 92/42 (59) Pulse Ox 97 Capillary Refill : Height, Weight, BMI Height: '" Weight: lbs. oz. kg; 26.54 BMI Method: General Appearance: No Apparent Distress, WD/WN HEENT: PERRL/EOMI, Pharynx Normal, Pale Conjunctivae (L), Pale Conjunctivae (R) Neck: Non Tender, Supple Respiratory: Lungs Clear, Normal Breath Sounds Cardiovascular: No Murmur, Tachycardia Gastrointestinal: Non Tender, Soft Genital/Rectal: Normal Rectal Exam, Heme Positive Stool Extremity: Normal Range of Motion, Non Tender Neurologic/Psychiatric: Alert, Oriented x3 Skin: Normal Color, Warm/Dry Progress/Results/Core Measures Results/Orders Lab Results Laboratory Tests Test 10/22/19 11:46 Range/Units White Blood Count 6.2 4.3-11.0 10^3/uL Red Blood Count 1.46 L 4.35-5.85 10^6/uL Hemoglobin 2.9 *L 13.3-17.7 G/DL Hematocrit 11 *L 40-54 % Mean Corpuscular Volume 72 L 80-99 FL Mean Corpuscular Hemoglobin 20 L 25-34 PG Mean Corpuscular Hemoglobin Concent 28 L 32-36 G/DL Red Cell Distribution Width 18.1 H 10.0-14.5 % Platelet Count 158 130-400 10^3/uL Mean Platelet Volume 9.5 7.4-10.4 FL Neutrophils (%) (Auto) 73 42-75 % Lymphocytes (%) (Auto) 15 12-44 % Monocytes (%) (Auto) 11 0-12 % Eosinophils (%) (Auto) 0 0-10 % Basophils (%) (Auto) 1 0-10 % Neutrophils # (Auto) 4.5 1.8-7.8 X 10^3 Lymphocytes # (Auto) 1.0 1.0-4.0 X 10^3 Monocytes # (Auto) 0.7 0.0-1.0 X 10^3 Eosinophils # (Auto) 0.0 0.0-0.3 10^3/uL Basophils # (Auto) 0.0 0.0-0.1 10^3/uL Prothrombin Time 24.3 H 12.2-14.7 SEC INR Comment 2.1 H 0.8-1.4 Activated Partial Thromboplast Time 32 24-35 SEC Sodium Level 138 135-145 MMOL/L Potassium Level 4.9 3.6-5.0 MMOL/L Chloride Level 109 H 98-107 MMOL/L Carbon Dioxide Level 16 L 21-32 MMOL/L Anion Gap 13 5-14 MMOL/L Blood Urea Nitrogen 65 H 7-18 MG/DL Creatinine 2.14 H 0.60-1.30 MG/DL Estimat Glomerular Filtration Rate 30 BUN/Creatinine Ratio 30 Glucose Level 137 H 70-105 MG/DL Calcium Level 9.3 8.5-10.1 MG/DL Corrected Calcium 9.5 8.5-10.1 MG/DL Magnesium Level 2.3 1.6-2.4 MG/DL Total Bilirubin 1.2 H 0.1-1.0 MG/DL Aspartate Amino Transf (AST/SGOT) 11 5-34 U/L Alanine Aminotransferase (ALT/SGPT) 9 0-55 U/L Alkaline Phosphatase 63 40-136 U/L Myoglobin 88.8 10.0-92.0 NG/ML Troponin I 0.028 <0.028 NG/ML B-Type Natriuretic Peptide 838.2 H <100.0 PG/ML Total Protein 6.5 6.4-8.2 GM/DL Albumin 3.8 3.2-4.5 GM/DL My Orders Orders - BARBIE GOODEN MD Red Cells Leukocytes Reduced (10/22/19 12:00) Type And Screen (10/22/19 11:46) Pantoprazole Injection (Protonix Injecti (10/22/19 12:45) Furosemide Injection (Lasix Injection) (10/22/19 12:45) Vital Signs/I&O 10/22/19 11:51 Temp 36.8 Pulse 101 Resp 20 B/P (MAP) 92/42 (59) Pulse Ox 97 Progress Progress Note : Progress Note Seen and evaluated. IV, labs, EKG and chest x-ray ordered. Patient is quite pale so type and cross obtained. 1200: Type and cross for 4 units ordered due to hemoglobin of 2.9. 1230: I discussed the case with Dr. Dent. He accepts patient for admission, inpatient status to the ICU. I talked with Dr. Laura. Right now this is a lack of blood issue and not cardiac related. He has seen the patient in the ER. Patient will need to be admitted to hospitalist service which was done. I have consulted Dr. Mejia at 1239. We will give Protonix 80 mg IV now and Lasix 40 mg IV now. Further Lasix as needed per primary team during transfusion. All findings concerns were discussed with the patient and family who agree with plan. Patient is Hemoccult positive on stool. Initial ECG Impression Date: Oct 22, 2019 Initial ECG Impression Time: 11:40 Initial ECG Rate: 92 Initial ECG Rhythm: Normal Sinus Comment Sinus rhythm with nonspecific referral abnormality. Question ST depression in the inferior leads. Normal axis. No evidence of ST elevation DC. Similar morphology but slightly changed with respect to ST segments from 09/04/19. Interpreted by me. Diagnostic Imaging Diagonstic Imaging: Xray Plain Films/CT/US/NM/MRI: chest Comments [facility], [place] NAME: CHELA [facility] REC#: [id number] PT STATUS: REG ER : 1945 PHYSICIAN: PEDRO LUIS SALES APRN ADMIT DATE: 10/22/19/ER Draft Date of Exam:10/22/19 CHEST 1 VIEW, AP/PA ONLY INDICATION: Shortness of breath and chest pain. Frontal chest obtained at 12:35 p.m. and compared to 09/06/2019. There is cardiomegaly. Mediastinal silhouette is unremarkable. The lungs appear clear. There is no pneumothorax or pleural fluid. There is minimal trace of pleural fluid in the left costophrenic angle. IMPRESSION: Cardiomegaly. No focal infiltrate or edema. Minimal trace pleural fluid in the left costophrenic angle. Dictated on workstation # [id number] Dict: 10/22/19 1240 Trans: 10/22/19 12[address] [facility] [id number] Interpreted by: FELIPE BRAVO MD Electronically signed by: Departure Communication (Admissions) Time/Spoke to Admitting Phy: 12:30 Time/Spoke to Consulting Phy: 11:44 Impression Primary Impression: Profound anemia Qualified Codes: D64.9 - Anemia, unspecified Additional Impression: Chest pain Qualified Codes: R07.9 - Chest pain, unspecified Disposition: ADMITTED INPATIENT Condition: Critical Admissions Decision to Admit Reason: Admit from ER (General) Decision to Admit/Date: Oct 22, 2019 Time/Decision to Admit Time: 12:00 Departure-Patient Inst. Referrals: OSCAR SCHMITT DO (PCP/Family) Primary Care Physician BARBIE GOODEN MD Oct 22, 2019 12:09
[2019-10-22 12:10] LABS: INR 2.1 (0.8-1.4); PROTHROMBIN TIME PATIENT 24.3 SEC (12.2-14.7)
[2019-10-22 12:21] LABS: ALBUMIN 3.8 GM/DL (3.2-4.5); BILIRUBIN,TOTAL 1.2 MG/DL (0.1-1.0); CALCIUM 9.3 MG/DL (8.5-10.1); CREATININE SERUM 2.14 MG/DL (0.60-1.30); MAGNESIUM 2.3 MG/DL (1.6-2.4); POTASSIUM 4.9 MMOL/L (3.6-5.0); TOTAL PROTEIN 6.5 GM/DL (6.4-8.2)
[2019-10-22] MEDS ORDERED: PANTOPRAZOLE 40 MG (PROTONIX) VIAL IV ONE (12:45)
[2019-10-22] MEDS ORDERED: FUROSEMIDE 40 MG/4 ML INJ (LASIX) IVP ONE ×2 (12:45→20:30)
[2019-10-22] MEDS ORDERED: NS IV 1000 ML 1,000 ML ONE (12:46)
--- NOTE | 2019-10-22 12:46 | Diagnostic Imaging Report ---
INDICATION: Shortness of breath and chest pain. Frontal chest obtained at 12:35 p.m. and compared to 09/06/2019. There is cardiomegaly. Mediastinal silhouette is unremarkable. The lungs appear clear. There is no pneumothorax or pleural fluid. There is minimal trace of pleural fluid in the left costophrenic angle. IMPRESSION: Cardiomegaly. No focal infiltrate or edema. Minimal trace pleural fluid in the left costophrenic angle. Dictated by: Dictated on workstation # [id number]
--- NOTE | 2019-10-22 13:12 | Consultation-Cardiology ---
HPI-Cardiology Cardiology Consultation Date of Consultation 10/22/19 Date of Admission Time Seen by Provider: 13:06 Indication: chest pain HPI 74-year-old gentleman with history of atrial fibrillation, had electrical cardioversion done in September 2019, has been on Coumadin with therapeutic level. Reported about 3 weeks ago increasing chest pain with exertion which has been worsening, having significant chest pain with minimal exertion increasing shortness of breath and pedal edema. No syncope or near syncopal episodes. No claudications. Seen Dr. Muro this morning and referred directly to the emergency room for evaluation after consulting with me Home Medications & Allergies Allergies: Coded Allergies: No Known Drug Allergies (Unverified , 09/03/19) Home Medication List Reviewed: Yes IYU-Rxauuy-Bjtytm Hx Patient Social History Marital Status: single Alcohol Use: Rarely Uses Recreational Drug Use: No Smoking Status: Former Smoker Recent Foreign Travel: No Recent Infectious Disease Expo: No Recent Hopitalizations: No Immunizations Up To Date Tetanus Booster (TDap): Unknown Date of Influenza Vaccine: May 05, 2019 Past Medical History Discussed below Family Medical History Family Medical Hx Noncontributory Family History: Patient reports no known family medical history. Review of Systems-General Review of Systems Constitutional: see HPI; No chills, No fever; malaise, weakness EENTM: see HPI Respiratory: see HPI; No cough; dyspnea on exertion; No hemoptysis, No orthopnea, No phlegm; short of breath; No stridor, No wheezing, No other Cardiovascular: see HPI, chest pain, edema; No Hx of Intervention, No palpitations, No syncope, No vascular heart diseas, No other Gastrointestinal: no symptoms reported, see HPI Genitourinary: see HPI Musculoskeletal: no symptoms reported, see HPI; No muscle pain; muscle weakness Skin: change in color; No lesions Psychiatric/Neurological: No Symptoms Reported All Other Systems Reviewed Negative Unless Noted: Yes Reviewed Test Results Reviewed Test Results Lab Laboratory Tests Test 10/22/19 11:46 Range/Units White Blood Count 6.2 4.3-11.0 10^3/uL Red Blood Count 1.46 L 4.35-5.85 10^6/uL Hemoglobin 2.9 *L 13.3-17.7 G/DL Hematocrit 11 *L 40-54 % Mean Corpuscular Volume 72 L 80-99 FL Mean Corpuscular Hemoglobin 20 L 25-34 PG Mean Corpuscular Hemoglobin Concent 28 L 32-36 G/DL Red Cell Distribution Width 18.1 H 10.0-14.5 % Platelet Count 158 130-400 10^3/uL Mean Platelet Volume 9.5 7.4-10.4 FL Neutrophils (%) (Auto) 73 42-75 % Lymphocytes (%) (Auto) 15 12-44 % Monocytes (%) (Auto) 11 0-12 % Eosinophils (%) (Auto) 0 0-10 % Basophils (%) (Auto) 1 0-10 % Neutrophils # (Auto) 4.5 1.8-7.8 X 10^3 Lymphocytes # (Auto) 1.0 1.0-4.0 X 10^3 Monocytes # (Auto) 0.7 0.0-1.0 X 10^3 Eosinophils # (Auto) 0.0 0.0-0.3 10^3/uL Basophils # (Auto) 0.0 0.0-0.1 10^3/uL Prothrombin Time 24.3 H 12.2-14.7 SEC INR Comment 2.1 H 0.8-1.4 Activated Partial Thromboplast Time 32 24-35 SEC Sodium Level 138 135-145 MMOL/L Potassium Level 4.9 3.6-5.0 MMOL/L Chloride Level 109 H 98-107 MMOL/L Carbon Dioxide Level 16 L 21-32 MMOL/L Anion Gap 13 5-14 MMOL/L Blood Urea Nitrogen 65 H 7-18 MG/DL Creatinine 2.14 H 0.60-1.30 MG/DL Estimat Glomerular Filtration Rate 30 BUN/Creatinine Ratio 30 Glucose Level 137 H 70-105 MG/DL Calcium Level 9.3 8.5-10.1 MG/DL Corrected Calcium 9.5 8.5-10.1 MG/DL Magnesium Level 2.3 1.6-2.4 MG/DL Total Bilirubin 1.2 H 0.1-1.0 MG/DL Aspartate Amino Transf (AST/SGOT) 11 5-34 U/L Alanine Aminotransferase (ALT/SGPT) 9 0-55 U/L Alkaline Phosphatase 63 40-136 U/L Myoglobin 88.8 10.0-92.0 NG/ML Troponin I 0.028 <0.028 NG/ML B-Type Natriuretic Peptide 838.2 H <100.0 PG/ML Total Protein 6.5 6.4-8.2 GM/DL Albumin 3.8 3.2-4.5 GM/DL Physical Exam Physical Exam Vital Signs Vital Signs - First Documented 10/22/19 11:51 Temp 36.8 Pulse 101 Resp 20 B/P (MAP) 92/42 (59) Pulse Ox 97 Capillary Refill : Less Than 3 Seconds Height, Weight, BMI Height: '" Weight: lbs. oz. kg; 26.00 BMI Method: General Appearance: No Apparent Distress, WD/WN HEENT: PERRL/EOMI, Pharynx Normal, Pale Conjunctivae (L), Pale Conjunctivae (R) Neck: Non Tender, Supple Respiratory: Lungs Clear, Normal Breath Sounds Cardiovascular: No Murmur, Irregularly Irregular, Tachycardia Gastrointestinal: Non Tender, Soft Genital/Rectal: Normal Rectal Exam, Heme Positive Stool Extremity: Normal Range of Motion, Non Tender Neurologic/Psychiatric: Alert, Oriented x3 Skin: Normal Color, Warm/Dry A/P-Cardiology Admission Diagnosis Accelerating angina Atrial fibrillation Anemia Hypotension Assessment/Plan Chest pain, accelerating angina, probably secondary to severe anemia. Continue to monitor at this time, cardiac enzymes did not show any elevation Severe anemia, maintained on Coumadin, hold for now and transfuse and monitor, evaluate stool for occult blood Congestive heart failure, left ventricular systolic dysfunction, ejection fraction 40 percent, acute on chronic. Currently hypotensive, cannot tolerate beta blockers or RITA inhibitor Paroxysmal atrial fibrillation, had 2 VINI and cardioversion in September, maintained on amiodarone, hold for now Hypotension, secondary to anemia, transfuse and monitor blood pressure Hyperthyroidism by history, monitor TSH level Gout, managed by primary care physician Clinical Quality Measures AMI/AHF: ASA po Prior to arrival: OLGA Kilpatrick MD Oct 22, 2019 13:12
[2019-10-22] MEDS ORDERED: CATHETER FLUSH 10 ML SYR IV PRN (14:30)
[2019-10-22] MEDS ORDERED: NS IV 500 ML 500 ML IV SCH (14:30)
[2019-10-22] MEDS ORDERED: LACTATED RINGERS 1,000 ML IV SCH (14:30)
--- OUTSIDE RECORDS SUMMARY | 2019-10-22 14:51 | XMS REPORT | Continuity of Care Document ---
Author Organization Unknown Address Unknown Phone Unavailable Allergies Active Description Code Type Severity Reaction Onset Reported/Identified Relationship to Patient Clinical Status Yes NO KNOWN DRUG ALLERGIES UNKNOWN NO KNOWN DRUG ALLERG Yes NO KNOWN DRUG ALLERGIES UNKNOWN UNKNOWN Yes No Known Drug Allergies [id number] Drug Allergy Unknown N/A 09/03/2019 Medications Medication [...] JinaRoney W I10 ESSENTIAL (PRIMARY) HYPERTENSION 02/16/2019 Jian Roney Allen R73.01 IMPAIRED FASTING GLUCOSE 02/16/2019 [...] 0 NONRHEUMATIC MITRAL (VALVE) INSUFFICIENC 09/10/2019 OLGA URRUTIA MD Ot I48. 20 CHRONIC ATRIAL FIBRILLATION, UNSPECIFIED 09/10/2019 OLGA URRUTIA MD Ot I50. 9 HEART FAILURE, UNSPECIFIED 09/15/2019 OLGA URRUTIA MD Ot I11. 0 HYPERTENSIVE HEART DISEASE WITH HEART FA 09/15/2019 OLGA URRUTIA MD Ot I34. 0 NONRHEUMATIC MITRAL (VALVE) INSUFFICIENC 09/15/2019 OLAG URRUTIA MD Ot I48. 20 CHRONIC ATRIAL [...] Code Description Performed By Per formed On [id number] RE STORATION OF CARDIAC RHYTHM, SINGLE 09/04/2019 [...] blood basophil count (count/volume) 0.0 10*3/uL 0.0-0.1 PT panel in platelet poor plasma by coag ulation assay - 10/22/19 11:46 Prothrombin time (PT) in platelet poor plasma by coagu lation assay 24.3 s 12.2-14.7 INR in platelet poor plasma or blood by coagulation as say 2.1 0.8-1.4 Activated partial thromboplastin time (a PTT) in platelet poor plasma bycoagulation assay - 10/22/19 11:46 Activated partial thromboplastin time (a PTT) in platelet poor plasma bycoagulation assay 32 s 24-35 Comprehensive metabolic panel - 10/22/19 11:46 Serum or plasma sodium measurement (moles/volume) 138 mmol/L 135-145 Serum or plasma potassium measurement (moles/volume) 4.9 mmol/L 3.6-5.0 Serum or plasma chloride measurement (moles/volume) 109 mmol/L 98-107 Carbon dioxide 16 mmol/L 21-32 Serum or plasma anion gap determination (moles/volume) 13 mmol/L 5-14 Serum or plasma urea nitrogen measurement (mass/volume ) 65 mg/dL 7-18 Serum or plasma creatinine measurement (mass/volume) 2.14 mg/dL 0.60-1.30 Serum or plasma urea nitrogen/creatinine mass ratio 30 NRG Serum or plasma creatinine measurement w ith calculation of estimated glomerular filtration rate 30 NRG Serum or plasma glucose measurement (mass/volume) 137 mg/dL 70-105 Serum or plasma calcium measurement (mass/volume) 9.3 mg/dL 8.5-10.1 Serum or plasma total bilirubin measurement (mass/volu me) 1.2 mg/dL 0.1-1.0 Serum or plasma alkaline phosphatase thang surement (enzymatic activity/volume) 63 U/L 40-136 Serum or plasma aspartate aminotransfera se measurement (enzymatic activity/volume) 11 U/L 5-34 Serum or plasma alanine aminotransferase measurement (enzymatic activity/volume) 9 U/L 0-55 Serum or plasma protein measurement (mass/volume) 6.5 g/dL 6.4-8.2 Serum or plasma albumin measurement (mass/volume) 3.8 g/dL 3.2-4.5 CALCIUM CORRECTED 9.5 mg/dL 8.5-10.1 Magnesium - 10/22/19 11:46 Magnesium 2.3 mg/dL 1.6-2.4 Serum or plasma troponin i.cardiac measu rement (mass/volume) - 10/22/19 11:46 Serum or plasma troponin i.cardiac measurement (mass/v olume) 0.028 ng/mL <0.028 Myoglobin, serum - 10/22/19 11:46 Myoglobin, serum 88.8 ng/mL 10.0-92.0 Serum or plasma lithium measurement (mol es/volume) - 10/22/19 11:46 BNP PT 838.2 pg/mL <100.0 RED CELLS LEUKO REDUCED AS1 - 10/22/19 1 1:46 RED CELLS LEUKO REDUCED AS1 T RANSFUSED 10/22/19 1247 NRG Blood type T Indirect antibody screen pa edward - 10/22/19 11:46 WRISTBAND NUMBER [id number] NRG ABO+Rh group AN NRG Blood group antibody screen NEGATIVE NR G Encounters ACCT No. Visit Date/Time Discharge Status Pt. Type Provider Facility Loc./Unit Complaint [id number] 09/17/2019 13:31:00 09/17/2019 23:59 :00 DIS Outpatient Roney Muro [id number] 09/03/2019 13:03:00 09/03/2019 23:59 :00 DIS Outpatient Roney Muro [id number] 09/03/2019 08:56:00 09/03/2019 10:55 :00 DIS Outpatient MARIANO CASAS [id number] 02/16/2019 08:30:00 02/16/2019 23:59: 00 DIS Outpatient Roney Muro [id number] 08/18/2018 08:43:00 08/18/2018 23:59: 00 DIS Outpatient Roney Muro [id number] 02/12/2018 08:58:00 02/12/2018 23:59: 00 DIS Outpatient Roney Muro [id number] 03/21/2017 09:17:00 03/21/2017 23:59: 00 DIS Outpatient Roney Muro [id number] 09/20/2016 08:45:00 09/20/2016 23:59: 00 DIS Outpatient Roney Muro [id number] 09/03/2019 09:13:10 Document Registration [id number] 02/16/2019 08:03:00 Document Registration [id number] 08/18/2018 08:06:00 Document Registration [id number] 02/12/2018 08:28:00 Document Registration [id number] 09/09/2019 07:45:00 23:59:59 CLS Outpatient RENAN LESLIE, OLGA Castellon [facility] CARD CHF,MITRAL REGURGITATIO N,HTN [id number] 09/03/2019 11:30:00 15:55:00 DIS Inpatient ALEX LESLIE, TADEO Perez [facility] ICU AFIB W RVR [id number] 10/22/2019 12:02:00 Document Registration
[2019-10-22 15:31] LABS: ABSOLUTE RETIC # 53 10e9/L (24-90); RETICULOCYTE % 3.59 % (0.50-2.40)
[2019-10-22] MEDS ORDERED: DILT-27 PO (15:33)
[2019-10-22] MEDS ORDERED: FURO20TA4 PO (15:33)
[2019-10-22] MEDS ORDERED: LISI10TA2 PO (15:33)
[2019-10-22] MEDS ORDERED: APIX5TAB PO (15:33)
[2019-10-22] MEDS ORDERED: POTA10TA36 PO (15:33)
[2019-10-22] MEDS ORDERED: PANT40TA3 PO (15:33)
[2019-10-22] MEDS ORDERED: AMIO200T4 PO (15:36)
--- NOTE | 2019-10-22 15:37 | NUR ---
SPOKE WITH THE PT (SHE HAD A MED LIST) AND WENT THRU THE EXT MED HISTORY TO COMPLETE THE MED REC. DILTIAZEM AND METOPROLOL ARE LISTED ON THE EXT MED HISTORY BUT THE PT SAYS HE WAS RECENTLY TAKEN OFF BOTH MEDS. OTC MEDS: NONE
[2019-10-22 17:04] LABS: NEUTROPHILS % (MANUAL) 73 %
[2019-10-22 17:05] LABS: HYPOCHROMASIA MODERATE; LYMPHOCYTES % (MANUAL) 19 %; MICROCYTOSIS MODERATE; MONOCYTES % (MANUAL) 8 %; NUCLEATED RED BLOOD CELLS 2
--- NOTE | 2019-10-22 17:12 | Consultation - Surgery ---
History of Present Illness History of Present Illness Patient Consulted On(crystal/time) 10/22/19 17:04 Date Seen by Provider: Oct 22, 2019 Time Seen by Provider: 12:11 Reason for Visit: chest pain History of Present Illness Consult requested by Dr. Dent for anemia Patient is a 74 year old male who has been feeling weak and having occasional chest pain last couple of weeks. Patient pain varied in intensity. Today chest pain significant. Pain central and retrosternal. Moved to the right upper extremity and then went away. Activity made worse. Not sure what makes better. Slight shortness of breath. Patient reports occult positive stool. He has not noticed any blood or darker stools. His last colonoscopy he states was greater than 10 years ago. Denies any n/v fever sweats chills. Hgb 2.9 Allergies and Home Medications Allergies Coded Allergies: No Known Drug Allergies (Unverified , 09/03/19) Home Medications Amiodarone HCl 200 Mg Tablet, 100 MG PO BID, (Reported) TAKES OF A 200MG TAB TO EQUAL 100MG TWICE DAILY Apixaban 5 Mg Tablet, 5 MG PO BID, (Reported) Furosemide 20 Mg Tablet, 20 MG PO DAILY, (Reported) Lisinopril 10 Mg Tablet, 10 MG PO DAILY, (Reported) Pantoprazole Sodium 40 Mg Tablet.dr, 40 MG PO DAILY, (Reported) Potassium Chloride 10 Meq Tab.er.prt, 10 MEQ PO DAILY, (Reported) Patient Home Medication List Home Medication List Reviewed: Yes Past Xvsmsrk-Nkmwua-Seazlu Hx Patient Social History Alcohol Use: Rarely Uses Recreational Drug Use: No Smoking Status: Former Smoker Former Smoker, Quit: Oct 11, 1994 Recent Foreign Travel: No Contact w/Someone Who Travel: No Recent Infectious Disease Expo: No Recent Hopitalizations: No Immunizations Up To Date Tetanus Booster (TDap): Unknown Date of Influenza Vaccine: May 05, 2019 Seasonal Allergies Seasonal Allergies: No Surgeries History of Surgeries: Yes (r knee, eye sx, cardioversion) Surgeries: Eye Surgery, Joint Replacement, Orthopedic Respiratory History of Respiratory Disorde: No Cardiovascular History of Cardiac Disorders: Yes (congestive heart failure) Cardiac Disorders: Atrial Fibrillation, Hypertension Neurological History of Neurological Disord: No Genitourinary History of Genitourinary Disor: No Gastrointestinal History of Gastrointestinal Di: No Musculoskeletal History of Musculoskeletal Dis: Yes Musculoskeletal Disorders: Gout Endocrine History of Endocrine Disorders: No HEENT History of HEENT Disorders: No Cancer History of Cancer: No Psychosocial History of Psychiatric Problem: No Integumentary History of Skin or Integumenta: No Blood Transfusions History of Blood Disorders: No Reviewed Nursing Assessment Reviewed/Agree w Nursing PMH: Yes Family Medical History Significant Family History: No Pertinent Family Hx Family Medial History: Patient reports no known family medical history. Review of Systems-General Constitutional: No fever; weakness EENTM: No blurred vision, No double vision, No vision loss Respiratory: dyspnea on exertion Cardiovascular: chest pain Gastrointestinal: No abdominal pain, No constipation, No dysphagia Genitourinary: No decreased output, No discharge Musculoskeletal: No back pain, No joint pain Skin: change in color (pale) Psychiatric/Neurological: Denies Anxiety, Denies Depressed Physical Exam-General Problems Physical Exam Vital Signs Vital Signs - First Documented 10/22/19 10/22/19 11:51 13:11 Temp 36.8 Pulse 101 Resp 20 B/P (MAP) 92/42 (59) Pulse Ox 97 O2 Delivery Room Air Capillary Refill : Less Than 3 Seconds General Appearance: no apparent distress HEENT: PERRL/EOMI, normal ENT inspection Neck: non-tender, full range of motion, supple Respiratory: chest non-tender, no respiratory distress, no accessory muscle use Cardiovascular: irregularly irregular Gastrointestinal: non tender, soft, no organomegaly, no pulsatile mass Rectal: deferred (at this time due to having one just a little bit by other p rovider) Back: no CVA tenderness, no vertebral tenderness Extremities: non-tender, pedal edema (b/l) Neurologic/Psychiatric: no motor/sensory deficits, alert, normal mood/affect, oriented x 3 Skin: pallor Lymphatic: no adenopathy Data Review Labs Laboratory Tests 10/22/19 11:46: White Blood Count 6.2, Red Blood Count 1.46L, Hemoglobin 2.9*L, Hematocrit 11*L, Mean Corpuscular Volume 72L, Mean Corpuscular Hemoglobin 20L, Mean Corpuscular Hemoglobin Concent 28L, Red Cell Distribution Width 18.1H, Platelet Count 158, Mean Platelet Volume 9.5, Neutrophils (%) (Auto) 73, Lymphocytes (%) (Auto) 15, Monocytes (%) (Auto) 11, Eosinophils (%) (Auto) 0, Basophils (%) (Auto) 1, Neutrophils # (Auto) 4.5, Lymphocytes # (Auto) 1.0, Monocytes # (Auto) 0.7, Eosinophils # (Auto) 0.0, Basophils # (Auto) 0.0, Absolute Reticulocyte Count 53, Percent Reticulocyte Count 3.59H, Prothrombin Time 24.3H, INR Comment 2.1H, Activated Partial Thromboplast Time 32, Sodium Level 138, Potassium Level 4.9, Chloride Level 109H, Carbon Dioxide Level 16L, Anion Gap 13, Blood Urea Nitrogen 65H, Creatinine 2.14H, Estimat Glomerular Filtration Rate 30, BUN/Creatinine Ratio 30, Glucose Level 137H, Calcium Level 9.3, Corrected Calcium 9.5, Magnesium Level 2.3, Total Bilirubin 1.2H, Aspartate Amino Transf (AST/SGOT) 11, Alanine Aminotransferase (ALT/SGPT) 9, Alkaline Phosphatase 63, Myoglobin 88.8, Troponin I 0.028, B-Type Natriuretic Peptide 838.2H, Total Protein 6.5, Albumin 3.8 Assessment/Plan Assessment/Plan Assessment/Plan severe anemia occult positive stool chest pain afib on anticoagulation hold anticoagulation transfuse prbc follow hgb transfusing as needed will plan egd/colonoscopy likely Saturday or outpatient or earlier if hgb doesn't stabilize. Clinical Quality Measures AMI/AHF: ASA po Prior to arrival: No DVT/VTE Risk/Contraindication: Risk Factor Score Per Nursin RFS Level Per Nursing on Admit: 4+=Very High SHY CAO DO Oct 22, 2019 17:12
--- NOTE | 2019-10-22 19:52 | NUR ---
E-ICU CONTACTED DUE TO PT HAVING A HISTORY OF CHF AND HAVING 4 UNITS OF BLOOD ORDERED AND CONCERN FOR VOLUME OVERLOAD. ORDERS GIVEN. SEE ORDER HISTORY.
[2019-10-22] MEDS: PANTOPRAZOLE 40 MG (PROTONIX) VIAL IV SCH (20:37)
[2019-10-23] VITALS (17 sets, daily range): BP systolic 101–125; BP diastolic 62–84
[2019-10-23 01:32] LABS: BASOPHILS % (AUTO) 0 % (0-10); EOSINOPHILS % (AUTO) 1 % (0-10); HEMATOCRIT 23 % (40-54); HEMOGLOBIN 7.6 G/DL (13.3-17.7); LYMPHOCYTES # (AUTO) 1.2 X 10^3 (1.0-4.0); LYMPHOCYTES % (AUTO) 20 % (12-44); MEAN CORPUSCULAR HEMOGLOBIN 26 PG (25-34); MEAN CORPUSCULAR HGB CONC 33 G/DL (32-36); MEAN CORPUSCULAR VOLUME 78 FL (80-99); MEAN PLATELET VOLUME 9.9 FL (7.4-10.4); MONOCYTES # (AUTO) 0.7 X 10^3 (0.0-1.0); MONOCYTES % (AUTO) 12 % (0-12); NEUTROPHILS % (AUTO) 68 % (42-75); PLATELET COUNT 117 10^3/uL (130-400); RED CELL DISTRIBUTION WIDTH 18.4 % (10.0-14.5)
[2019-10-23 01:49] LABS: CREATININE SERUM 1.72 MG/DL (0.60-1.30); MAGNESIUM 2.3 MG/DL (1.6-2.4); PHOSPHORUS 4.3 MG/DL (2.3-4.7); POTASSIUM 4.2 MMOL/L (3.6-5.0)
[2019-10-23] MEDS ORDERED: POTASSIUM CL 10MEQ/50ML IVPB 50 ML IV SCH (06:00)
[2019-10-23] MEDS ORDERED: MAGNESIUM 1 GM/100 ML IVPB 100 ML IV SCH (06:00)
[2019-10-23] MEDS ORDERED: KCL 20 MEQ TAB (K-DUR) PO SCH (06:00)
--- NOTE | 2019-10-23 07:10 | Diagnostic Imaging Report ---
EXAMINATION: Portable erect AP chest at 235h. INDICATION: Dyspnea The cardiomegaly noted on the prior exam of 10/22/2019 is again evident and no different. There does seem to be an area of increased density in the left retrocardiac region. This portion of the chest is not well penetrated and difficult to evaluate. If further study is desired, then a follow-up PA and lateral chest should be obtained. The lungs are otherwise unchanged. The mediastinum is not widened. The osseous structures are intact. IMPRESSION: 1. There is a question of a developing area of pneumonia/atelectasis in the left retrocardiac region. Recommendations as above. 2. The overall appearance of the chest is otherwise stable. Dictated by: Dictated on workstation # [id number]
[2019-10-23] MEDS: PANTOPRAZOLE 40 MG (PROTONIX) VIAL IV SCH ×2 (07:57→20:07)
--- NOTE | 2019-10-23 09:30 | Occupational Therapy Eval ---
OT Evaluation-General/PLF Medical Diagnosis Admission Date Oct 22, 2019 at 13:48 Medical Diagnosis: anemia, angina, CHF Onset Date: Oct 22, 2019 Therapy Diagnosis Therapy Diagnosis: Decreased ADL status Precautions Precautions/Isolations: Fall Prevention, Standard Precautions Safety Interventions: None Referral Physician: Lilian Dent MD Referral Reason: Activity Tolerance, Self Care, Evaluation/Treatment, Strengthening/ROM Medical History Pertinent Medical History: HTN Additional Medical History HTN, CHF, electrical cardioversion (sep 2019) Current History Pt states a fib ~1 mo ago. Chest pain began ~3 weeks prior to admission, worse pain with exertion. Pt states R arm pain as well. Currently denying pain. Reviewed History: Yes Social History Home: Multilevel Current Living Status: Alone Entry Into Home: Stairs With Railing Steps Into Home: 4 3 steps to enter first level, one step down to living/ kitchen ADL-Prior Level of Function SCALE: Activities may be completed with or without assistive devices. 3-Cxfrrzyfmt-ywdfavu completes the activity by him/herself with no assistance from a helper. 5-Set-up or Clean-up Assistance-helper sets up or cleans up; patient completes activity. [place] assists only prior to or following the activity. 4-Supervision or Touching Assistance-helper provides verbal cues and/or touching/steadying and/or contact guard assistance as patient completes activity. Assistance may be provided throughout the activity or intermittently. 3-Partial/Moderate Assistance-helper does LESS THAN HALF the effort. [place] lifts, holds or supports trunk or limbs, but provides less than half the effort. 2-Substantial/Maximal Assistance-helper does MORE THAN HALF the effort. [place] lifts or holds trunk or limbs and provides more than half the effort. 9-Qvouhfkcc-rffwzn does ALL the effort. Patient does none of the effort to complete the activity. Or, the assistance of 2 or more helpers is required for the patient to complete the activity. If activity was not attempted, code reason: 7-Patient Refused. 9-Not Applicable-not attempted and the patient did not perform the activity before the current illness, exacerbation or injury. 10-Not Attempted due to Environmental Limitations-(lack of equipment, weather restraints, etc.). 88-Not Attempted due to Medical Conditions or Safety Concerns. ADL PLOF Comments Pt states IND with use of cane at times Self Care: Independent Functional Cognition: Independent DME/Equipment: Shower, Tub/Shower DME/Equipment Comments Pt has both tub/ shower and shower. No gbs, no sc, standard toilet. Occupation: retired Drive Self: Yes Leisure Interests: Hobby: car work OT Current Status Subjective Pt seen asleep in bed. Pt easily wakes, 0x3. Pt agrees to OT eval/ treat. Denies pain throughout. Mental Status/Objective Patient Orientation: Person, Place, Situation Attachments: IV, Telemetry Current Glasses/Contacts: Yes Hearing Aids: No Dentures/Partials: No Hand Dominance: Right Upper Extremity ROM WFL BUE Upper Extremity Coordination WFL BUE Upper Extremity Sensation WFL BUE Upper Extremity Strength WFL BUE (5/5) Edema: bilateral feet ADL-Treatment Eating (QC): 6 (based on clinical judgement- pt states he is NPO, no water/ food present ) Oral Hygiene (QC): 6 (Pt given dampened mouth sponge, pt completes with IND.) Shower/Bathe Self (QC): 7 On/Off Footwear (QC): 6 (IND in chair.) Other Treatments Pt educated on OT role. Pt provides hx. Pt agrees to OOB activity, stating he is very active/ does not like bed. Pt agrees to sit in chair. Pt completes bed mob/ sit to stand with SBA. Ambulates to recliner with OT handling lines/ IV pole. Pt sits with good control, denies use of SPC. Pt completes MMT/ ROM and sock don/ doffing in recliner. Pt does not anticipate difficulty at home. OT recommends sc/ gb. Pt and OT agree pt does not require OT tx at this time. Pt left in recliner with call light in reach, all needs met. Education OT Patient Education: Correct positioning, Safety issues, Transfer techniques Teaching Recipient: Patient Teaching Methods: Demonstration, Discussion Response to Teaching: Verbalize Understanding, Return Demonstration OT Group Home Goals Group Home Goals 1=Demonstrate adherence to instructed precautions during ADL tasks. 2=Patient will verbalize/demonstrate understanding of assistive devices/modifications for ADL. 3=Patient will improve strength/tolerance for activity to enable patient to perform ADL's. OT Education/Plan Problem List/Assessment Assessment: No Skilled OT Needs ID'd Discharge Recommendations Plan/Recommendations: Discharge/Goals Met Therapy Discharge Recommendati: Intermittent Supervision, Home & Family Equpiment Recommendations-D/C: Rails on Tub/Shower, Bath Chair, Rails on Toilet, Toilet Riser Treatment Plan/Plan of Care Treatment,Training & Education: Yes . Plan of Care: OTHER (eval only) Treatment Duration: Oct 23, 2019 Frequency: 1 time per week (eval only) Time/GCodes Start Time: 08:44 Stop Time: 09:05 Total Time Billed (hr/min): 21 Billed Treatment Time 1, NIYAH (21) RUPAL HART OTR Oct 23, 2019 09:30
--- NOTE | 2019-10-23 09:35 | Cardiology Progress Note ---
Subjective Date Seen by Provider: Oct 23, 2019 Time Seen by Provider: 09:33 Subjective/Events-last exam Patient is in feeling better, no chest pain Review of Systems General: No Chills, No Night Sweats, No Fatigue, No Malaise, No Appetite, No Other HEENT: No Head Aches, No Visual Changes, No Eye Pain, No Ear Pain, No Dysphasia, No Sinus Congestion, No Post Nasal Drip, No Sore Throat, No Other Pulmonary: No Dyspnea, No Cough, No Pleuritic Chest Pain, No Other Cardiovascular: No: Chest Pain, Palpitations, Orthopnea, Paroxysmal Noc. Dyspnea, Edema, Lt Headedness, Other Objective-Cardiology Exam Last Set of Vital Signs Vital Signs 10/23/19 09:00 Pulse 80 Resp 19 B/P (MAP) 122/84 (97) Pulse Ox 97 O2 Delivery Room Air Capillary Refill : Less Than 3 Seconds I&O Intake and Output 10/23/19 00:00 Intake Total 291 ml Output Total 2550 ml Balance -2259 ml Intake Oral 0 ml Other 291 ml Output Urine Total 2550 ml Daily Weight Change No General: Alert, Oriented X3, Cooperative HEENT: Atraumatic, PERRLA Neck: Supple, No JVD, No Thyromegaly Lungs: Clear to Auscultation, Normal Air Movement Heart: Regular Rate, Normal S1, Normal S2, No Murmurs Abdomen: Normal Bowel Sounds, Soft, No Tenderness, No Hepatosplenomegaly, No Masses Extremities: No Clubbing, No Cyanosis, No Edema, Normal Pulses, No Tendern ess/Swelling Skin: No Rashes, No Breakdown, No Significant Lesion Neuro: Normal Gait, Normal Speech, Strength at 5/5 X4 Ext, Normal Tone, Sensation Intact Psych/Mental Status: Mental Status NL, Mood NL Results Lab Laboratory Tests 10/22/19 11:46 10/23/19 01:20 A/P-Cardiology Admission Diagnosis Accelerating angina Atrial fibrillation Anemia Hypotension Assessment/Plan Chest pain, accelerating angina, probably secondary to severe anemia. Continue to monitor at this time, cardiac enzymes did not show any elevation Severe anemia, maintained on Coumadin, hold for now, possible endoscopy per Dr Mejia Congestive heart failure, left ventricular systolic dysfunction, ejection fraction 40 percent, acute on chronic. better today Paroxysmal atrial fibrillation, had 2 VINI and cardioversion in September, maintained on amiodarone, hold for now Hypotension, better now, continue to monitor Hyperthyroidism by history, monitor TSH level Gout, managed by primary care physician Clinical Quality Measures AMI/AHF: ASA po Prior to arrival: No DVT/VTE Risk/Contraindication: Risk Factor Score Per Nursin RFS Level Per Nursing on Admit: 4+=Very High OLGA URRUTIA MD Oct 23, 2019 9:35 am
--- NOTE | 2019-10-23 11:37 | Physical Therapy Evaluation ---
PT Evaluation-General Medical Diagnosis Admission Date Oct 22, 2019 at 13:48 Medical Diagnosis: anemia, angina, CHF Onset Date: Oct 22, 2019 Therapy Diagnosis Therapy Diagnosis: debility Precautions Precautions/Isolations: Fall Prevention, Standard Precautions Weight Bear Status Right Lower Extremity: Right Weight Bearing/Tolerated Left Lower Extremity: Left Weight Bearing/Tolerated Referral Physician: Lilian Dent MD Reason for Referral: Evaluation/Treatment Medical History Pertinent Medical History: Atrial Fib, HTN Current History admitted secondary to critically low Hgb Reviewed History: Yes Social History Home: Single Level Current Living Status: Alone Entry Into Home: Stairs With Railing PT Steps Into Home: 4 Prior Prior Level of Function SCALE: Activities may be completed with or without assistive devices. 0-Nzfnowakxx-umraknp completes the activity by him/herself with no assistance from a helper. 5-Set-up or Clean-up Assistance-helper sets up or cleans up; patient completes activity. [place] assists only prior to or following the activity. 4-Supervision or Touching Assistance-helper provides verbal cues and/or touching/steadying and/or contact guard assistance as patient completes activity. Assistance may be provided throughout the activity or intermittently. 3-Partial/Moderate Assistance-helper does LESS THAN HALF the effort. [place] lifts, holds or supports trunk or limbs, but provides less than half the effort. 2-Substantial/Maximal Assistance-helper does MORE THAN HALF the effort. [place] lifts or holds trunk or limbs and provides more than half the effort. 8-Jggryqaau-ssmigs does ALL the effort. Patient does none of the effort to co mplete the activity. Or, the assistance of 2 or more helpers is required for the patient to complete the activity. If activity was not attempted, code reason: 7-Patient Refused. 9-Not Applicable-not attempted and the patient did not perform the activity before the current illness, exacerbation or injury. 10-Not Attempted due to Environmental Limitations-(lack of equipment, weather restraints, etc.). 88-Not Attempted due to Medical Conditions or Safety Concerns. Bed Mobility: 6 Transfers (B,C,W/C): 6 Gait: 6 Stairs: 6 Indoor Mobility (Ambulation): Independent Stairs: Independent Prior Devices Use: Other-see list below cane PT Evaluation-Current Subjective Patient agrees to PT. Pain Numeric Pain Scale: 0-No Pain Location: No Pain Reported Objective Patient Orientation: Normal For Age Attachments: IV ROM/Strength ROM Lower Extremities bilateral LE WFL Strength Lower Extremities bilateral LE WFL Integumentary/Posture Integumentary refer to nursing notes Bowel Incontinence: No Bladder Incontinence: No Posture WFL Neuromuscular (Tone, Coordination, Reflexes) grossly intact Sensory Vision: Functional Hearing: Functional Hand Dominance: Right Sensation Right Lower Extremit: Intact Sensation Left Lower Extremity: Intact Transfers Roll Left to Right (QC): 6 Sit to Lying (QC): 6 Lying to Sitting/Side of Bed(Q: 6 Sit to Stand (QC): 6 Chair/Bui-os-Enkni Xfer(QC): 6 Gait Does the Patient Walk?: Yes Mode of Locomotion: Walk Anticipated Mode of Locomotion: Walk Walk 10 feet (QC): 6 Walk 50 ft with 2 Turns(QC): 6 Walk 150 ft (QC): 6 Distance: 150' Gait Assistive Device: Cane Single Point Comments/Gait Description safe and functional with on deviation Balance Sitting Static: Normal Sitting Dynamic: Normal Standing Static: Normal Standing Dynamic: Normal Assessment/Needs 74 y.o. male, is currently at [facility] with all gross motor skills [facility] and does not require skilled therapy intervention. Rehab Potential: Fair PT Plan Treatment/Plan Treatment Plan: Discontinue PT, goals met Treatment Duration: Oct 23, 2019 Frequency: 1 time per week Estimated Hrs Per Day: .25 hour per day Patient and/or Family Agrees t: Yes Time/GCodes Time In: 1050 Time Out: 1104 Total Billed Treatment Time: 14 Total Billed Treatment 1 visit EVLowC 14 min EDWIN JULIEN PT Oct 23, 2019 11:37
[2019-10-23] MEDS ORDERED: NS IV 500 ML 500 ML IV SCH (14:01)
[2019-10-23] MEDS ORDERED: polyethylene glycoL POWDER 17 GM (MIRALAX) PACK PO PRN (14:15)
[2019-10-23] MEDS ORDERED: RT-ALBUTEROL SULF 2.5 MG/3 ML PRE-MIX VIAL IH PRN (14:15)
[2019-10-23] MEDS ORDERED: BISACODYL 10 MG SUPP (DULCOLAX) PR PRN (14:15)
[2019-10-23] MEDS ORDERED: EPINEPHrine INJECTION 1 MG/ML AMP IM PRN (14:15)
[2019-10-23] MEDS ORDERED: HYDROCORTISONE 100 MG/2 ML (Solu-CORTEF) VIAL IV PRN (14:15)
[2019-10-23] MEDS ORDERED: diphenhydrAMINE 25 MG TAB (BENADRYL) PO PRN (14:15)
[2019-10-23] MEDS ORDERED: IRON DEXTRAN INJECTION 25 MG in NS (IVPB) 5.75 ML IV NR (14:15)
[2019-10-23] MEDS ORDERED: ACETAMINOPHEN 325 MG TABLET PO PRN (14:15)
[2019-10-23] MEDS ORDERED: ONDANSETRON 4 MG/2 ML (SDV) Z0FRAN IV PRN (14:15)
[2019-10-23] MEDS ORDERED: ANTACID SUSP 30 ML UDC (MYLANTA) PO PRN (14:15)
[2019-10-23] MEDS ORDERED: MELATONIN 3 MG TABLET PO PRN (14:15)
[2019-10-23] MEDS ORDERED: ONDANSETRON 4 MG (ZOFRAN) ORAL DISSOLVE TAB PO PRN (14:15)
[2019-10-23] MEDS ORDERED: diphenhydrAMINE 50 MG/ML INJ (BENADRYL) IV PRN (14:15)
--- NOTE | 2019-10-23 14:27 | History & Physical-Hospitalist ---
History of Present Illness HPI/Chief Complaint Anam Powell is a 74-year-old male with past medical history of hypertension, atrial fibrillation, heart failure, GERD, chronic kidney disease, who presented with shortness of breath and chest pain. He reports that he has been having shortness of breath activity. He also reports chest pain with radiation to his right arm. He denies any associated diaphoresis, nausea, or vomiting. He denies any fevers or chills. He denies any cough. He denies any hematochezia or melena. He denies any hematemesis, epistaxis, or hematuria. He reports feeling lightheaded and dizzy. He reports having a colonoscopy sometime in the distant past but is unsure of what the results were. Source: patient Exam Limitations: no limitations Date Seen 10/23/19 Time Seen by a Provider: 09:30 Attending Physician Jackie Dent MD PCP Roney Muro DO Referring Physician Date of Admission Oct 22, 2019 at 13:48 Home Medications & Allergies Home Medications Reviewed patient Home Medication Reconciliation performed by pharmacy medication reconciliations vascular technician and/or nursing. Patients Allergies have been reviewed. Allergies Allergies Coded Allergies No Known Drug Allergies (Unverified09/03/19) Past Umvzcma-Mssvcw-Eoldog Hx Past Med/Social Hx: Reviewed Nursing Past Med/Soc Hx Patient Social History Marrital Status: single Alcohol Use: Rarely Uses Recreational Drug Use: No Smoking Status: Former Smoker Former Smoker, Quit: Oct 11, 1994 Recent Foreign Travel: No Contact w/other who traveled: No Recent Hopitalizations: No Recent Infectious Disease Expo: No Immunizations Up To Date Tetanus Booster (TDap): Unknown Date of Influenza Vaccine: May 05, 2019 Seasonal Allergies Seasonal Allergies: No Past Medical History Surgeries: Eye Surgery, Joint Replacement, Orthopedic Cardiac: Atrial Fibrillation, Hypertension Musculoskeletal: Gout History of Blood Disorders: No Family History Reviewed Nursing Family Hx Patient reports no known family medical history. No Pertinent Family Hx Review of Systems Constitutional: dizziness, weakness EENTM: see HPI Respiratory: dyspnea on exertion, short of breath Cardiovascular: chest pain Gastrointestinal: no symptoms reported Genitourinary: no symptoms reported Musculoskeletal: no symptoms reported Skin: no symptoms reported Psychiatric/Neurological: No Symptoms Reported Physical Exam Physical Exam Vital Signs Vital Signs - First Documented 10/22/19 10/22/19 11:51 13:11 Temp 36.8 Pulse 101 Resp 20 B/P (MAP) 92/42 (59) Pulse Ox 97 O2 Delivery Room Air Capillary Refill : Less Than 3 Seconds Height, Weight, BMI Height: '" Weight: lbs. oz. kg; 26.00 BMI Method: General Appearance: No Apparent Distress, WD/WN Respiratory: Lungs Clear, Normal Breath Sounds, No Respiratory Distress Cardiovascular: Regular Rate, Rhythm, No Edema, No Murmur Gastrointestinal: Normal Bowel Sounds, Non Tender, Soft Extremity: Normal Inspection, Non Tender, Pedal Edema Neurologic/Psychiatric: Alert, Oriented x3, No Motor/Sensory Deficits, Normal Mood/Affect Skin: Warm/Dry, Pallor Results Results/Procedures Labs Laboratory Tests 10/22/19 11:46 10/23/19 01:20 10/23/19 09:58 Patient resulted labs reviewed. Imaging: Reviewed Imaging Report Assessment/Plan Admission Diagnosis Symptomatic anemia Admission Status: Inpatient Order (span 2 midnights) Reason for Inpatient Admission: Anemia requiring further evaluation and treatment Assessment and Plan Symptomatic anemia Iron deficiency anemia GI bleeding Hemoglobin 2.9 on arrival Type and screen performed Transfused 4 units PRBC on arrival Lasix given with transfusions Started on IV PPI Fecal occult blood positive Iron studies indicative of iron deficiency anemia Gen. surgery consulted, appreciate assistance Planning for EGD/colonoscopy on Saturday Hold anticoagulation Acute kidney injury superimposed on chronic kidney disease Chronic heart failure with reduced ejection fraction Creatinine 2 on arrival, baseline around 1.25 Improved to 1.72 this morning Continue Lasix Continue to monitor Paroxysmal atrial fibrillation Hold amiodarone Hold Eliquis DVT prophylaxis: Pharmacologic prophylaxis held due to active major bleeding Diagnosis/Problems Diagnosis/Problems (1) Symptomatic anemia Status: Acute (2) GI bleeding Status: Acute (3) Iron deficiency anemia Status: Acute Qualifiers: Iron deficiency anemia type: chronic blood loss Qualified Codes: D50.0 - Iron deficiency anemia secondary to blood loss (chronic) (4) Acute kidney injury superimposed on chronic kidney disease Status: Acute (5) Heart failure with reduced ejection fraction Status: Chronic Qualifiers: Heart failure chronicity: chronic Qualified Codes: I50.22 - Chronic systolic (congestive) heart failure (6) Atrial fibrillation with RVR Status: Acute Clinical Quality Measures AMI/AHF: ASA po Prior to arrival: No DVT/VTE Risk/Contraindication: Risk Factor Score Per Nursin RFS Level Per Nursing on Admit: 4+=Very High JOSE,JACKIE M MD Oct 23, 2019 14:27
[2019-10-23] MEDS ORDERED: IRON DEXTRAN INJECTION 1,000 MG in NS (IVPB) 250 ML IV NR (14:45)
--- NOTE | 2019-10-23 16:00 | NUR ---
patient to floor via w/c accompanied by MALLORIE Walter.
--- NOTE | 2019-10-23 16:53 | Progress Note - Surgery ---
Subjective Date Seen by a Provider: Oct 23, 2019 Time Seen by a Provider: 16:50 Subjective/Events-last exam Feeling better. Not having chest pain. Hgb improving after transfusion. Denies any new complaints. NPO. Denies n/v fever sweats chills shortness of breath or chest pain. Objective Exam Vital Signs Date Time Temp Pulse Resp B/P (MAP) Pulse Ox O2 Delivery O2 Flow Rate FiO2 10/23/19 16:00 100 Room Air 10/23/19 15:00 87 122/72 (89) 98 Room Air 10/23/19 14:00 90 125/73 (90) 100 Room Air 10/23/19 13:00 74 116/67 (83) 94 Room Air 10/23/19 12:43 70 10/23/19 12:00 100 Room Air 10/23/19 12:00 37.0 10/23/19 12:00 74 110/66 (81) 100 Room Air 10/23/19 10:00 76 13 119/70 (86) 97 Room Air 10/23/19 09:00 80 19 122/84 (97) 97 Room Air 10/23/19 08:00 100 Room Air 10/23/19 08:00 37.0 10/23/19 08:00 79 13 120/74 (89) 97 Room Air 10/23/19 07:00 80 12 115/70 (85) 98 Room Air 10/23/19 06:42 65 10/23/19 06:00 68 13 101/62 (75) 95 Room Air 10/23/19 05:00 74 23 109/67 (81) 97 Room Air 10/23/19 04:00 80 23 117/74 (88) 96 Room Air 10/23/19 03:03 37.2 10/23/19 03:01 100 Room Air 10/23/19 03:00 70 14 103/65 (78) 95 Room Air 10/23/19 02:00 73 20 107/64 (78) 97 Room Air 10/23/19 01:00 74 15 113/69 (84) 96 Room Air 10/23/19 01:00 80 10/23/19 00:00 90 18 125/69 (87) 97 Room Air 10/22/19 23:24 37.2 10/22/19 23:24 100 Room Air 10/22/19 23:15 37.2 81 16 120/72 96 Room Air 10/22/19 23:00 77 14 120/72 (88) 97 Room Air 10/22/19 22:00 78 15 111/69 (83) 100 Room Air 10/22/19 21:16 36.8 78 15 109/70 100 Room Air 10/22/19 21:01 37.1 93 22 124/74 100 Room Air 10/22/19 21:00 81 18 124/74 (91) 100 Room Air 10/22/19 20:00 79 16 116/69 (85) 100 Room Air 10/22/19 20:00 100 Room Air 10/22/19 19:37 37.0 80 13 113/70 Room Air 10/22/19 19:13 37.0 10/22/19 19:00 80 10/22/19 19:00 78 20 112/66 (81) 100 Room Air 10/22/19 18:00 81 18 116/64 (81) 99 Room Air 10/22/19 17:49 37.0 81 116/67 10/22/19 17:34 37.2 84 108/66 10/22/19 17:00 86 17 108/66 (80) 100 Room Air I & O 10/23/19 07:00 Intake Total 301 ml Output Total 4220 ml Balance -3919 ml Capillary Refill : Less Than 3 Seconds General Appearance: No Apparent Distress, WD/WN HEENT: PERRL/EOMI, Pharynx Normal, Pale Conjunctivae (L), Pale Conjunctivae (R) Neck: Normal Inspection, Non Tender, Supple Respiratory: Chest Non Tender, No Accessory Muscle Use, No Respiratory Distress Cardiovascular: Regular Rate, Rhythm, No Edema, No Murmur Gastrointestinal: non tender, soft, no organomegaly, no pulsatile mass Extremity: Normal Inspection, Non Tender, Pedal Edema Neurologic/Psychiatric: Alert, Oriented x3, No Motor/Sensory Deficits, Normal Mood/Affect Skin: Warm/Dry, Pallor Lymphatic: No Adenopathy Results Lab Laboratory Tests 10/23/19 01:20: White Blood Count 6.0, Red Blood Count 2.96L, Hemoglobin 7.6#L, Hematocrit 23L, Mean Corpuscular Volume 78L, Mean Corpuscular Hemoglobin 26, Mean Corpuscular Hemoglobin Concent 33, Red Cell Distribution Width 18.4H, Platelet Count 117L, Mean Platelet Volume 9.9, Neutrophils (%) (Auto) 68, Lymphocytes (%) (Auto) 20, Monocytes (%) (Auto) 12, Eosinophils (%) (Auto) 1, Basophils (%) (Auto) 0, Neutrophils # (Auto) 4.0, Lymphocytes # (Auto) 1.2, Monocytes # (Auto) 0.7, Eosinophils # (Auto) 0.0, Basophils # (Auto) 0.0, Sodium Level 141, Potassium Level 4.2, Chloride Level 108H, Carbon Dioxide Level 22, Anion Gap 11, Blood Urea Nitrogen 57H, Creatinine 1.72H, Estimat Glomerular Filtration Rate 39, BUN/Creatinine Ratio 33, Glucose Level 113H, Calcium Level 9.0, Phosphorus Level 4.3, Magnesium Level 2.3, Triglycerides Level 67, Cholesterol Level 80, LDL Cholesterol Direct 63, VLDL Cholesterol 13, HDL Cholesterol 25L 10/23/19 09:58: Hemoglobin 8.0L, Hematocrit 25L, Thyroid Stimulating Hormone (TSH) 0.58 10/23/19 11:42: Lab Scanned Report Transfusion Reaction Form 10/23/19 12:10: Glucometer 125H Microbiology 10/22/19 MRSA Screen - Final, Complete MRSA not isolated Assessment/Plan Assessment/Plan Assessment/Plan severe anemia occult positive stool chest pain afib on anticoagulation hold anticoagulation transfuse prbc follow hgb transfusing as needed will plan egd/colonoscopy Saturday or outpatient or earlier if hgb doesn't stabilize. Advance to clear liquids. Prep for colonoscopy to be started Saturday and is ordered. Obtain consent Clinical Quality Measures AMI/AHF: ASA po Prior to arrival: No DVT/VTE Risk/Contraindication: Risk Factor Score Per Nursin RFS Level Per Nursing on Admit: 4+=Very High SHY CAO DO Oct 23, 2019 16:53
[2019-10-23] MEDS: DOCUSATE SODIUM 100 MG (COLACE) CAP PO SCH (20:07)
[2019-10-24 00:09] VITALS: BP 125/66
[2019-10-24 04:15] VITALS: BP 118/69
[2019-10-24 05:34] LABS: BASOPHILS # (AUTO) 0.1 10^3/uL (0.0-0.1); BASOPHILS % (AUTO) 1 % (0-10); EOSINOPHILS # (AUTO) 0.1 10^3/uL (0.0-0.3); EOSINOPHILS % (AUTO) 2 % (0-10); HEMATOCRIT 23 % (40-54); HEMOGLOBIN 7.2 G/DL (13.3-17.7); LYMPHOCYTES % (AUTO) 18 % (12-44); MEAN CORPUSCULAR HEMOGLOBIN 25 PG (25-34); MEAN CORPUSCULAR HGB CONC 32 G/DL (32-36); MEAN CORPUSCULAR VOLUME 81 FL (80-99); MONOCYTES # (AUTO) 0.8 X 10^3 (0.0-1.0); MONOCYTES % (AUTO) 15 % (0-12); NEUTROPHILS # (AUTO) 3.6 X 10^3 (1.8-7.8); NEUTROPHILS % (AUTO) 64 % (42-75); PLATELET COUNT 99 10^3/uL (130-400); RED CELL DISTRIBUTION WIDTH 19.6 % (10.0-14.5); WHITE BLOOD COUNT 5.6 10^3/uL (4.3-11.0)
[2019-10-24 05:58] LABS: BUN/CREATININE RATIO 23; CALCIUM 8.9 MG/DL (8.5-10.1); CARBON DIOXIDE 23 MMOL/L (21-32); CHLORIDE 111 MMOL/L (98-107); CREATININE SERUM 1.13 MG/DL (0.60-1.30); GFR ESTIMATED > 60; GLUCOSE 96 MG/DL (70-105); POTASSIUM 3.9 MMOL/L (3.6-5.0); SODIUM 143 MMOL/L (135-145)
[2019-10-24 08:00] VITALS: BP 118/65
[2019-10-24] MEDS: PANTOPRAZOLE 40 MG (PROTONIX) VIAL IV SCH ×2 (10:00→20:45)
[2019-10-24] MEDS: FUROSEMIDE 20 MG (LASIX) TAB PO SCH (10:00)
[2019-10-24] MEDS: DOCUSATE SODIUM 100 MG (COLACE) CAP PO SCH ×2 (10:00→20:48)
--- NOTE | 2019-10-24 10:28 | Progress Note - Surgery ---
Subjective Time Seen by a Provider: 09:46 Subjective/Events-last exam Pt seen and examined, denies abdominal pain and tolerating diet. Asked some questions about prep tomorrow for planned Endo on Saturday. Review of Systems General: No Chills, No Night Sweats Pulmonary: No Dyspnea, No Cough Cardiovascular: No: Chest Pain, Palpitations Gastrointestinal: No: Nausea, Vomiting Objective Exam Vital Signs Date Time Temp Pulse Resp B/P (MAP) Pulse Ox O2 Delivery O2 Flow Rate FiO2 10/24/19 08:00 36.6 80 16 118/65 (82) 97 Room Air 10/24/19 04:15 37.2 77 20 118/69 (85) 96 Room Air 10/24/19 00:09 37.6 84 18 125/66 (85) 95 Room Air 10/23/19 20:00 Room Air 10/23/19 19:36 36.4 97 16 122/66 (84) 99 Room Air 10/23/19 17:16 36.6 86 15 121/67 (85) 100 Room Air 10/23/19 16:00 100 Room Air 10/23/19 15:00 87 122/72 (89) 98 Room Air 10/23/19 14:00 90 125/73 (90) 100 Room Air 10/23/19 13:00 74 116/67 (83) 94 Room Air 10/23/19 12:43 70 10/23/19 12:00 100 Room Air 10/23/19 12:00 37.0 10/23/19 12:00 74 110/66 (81) 100 Room Air I & O 10/24/19 07:00 Intake Total 1830 ml Output Total 600 ml Balance 1230 ml Capillary Refill : Less Than 3 Seconds General Appearance: No Apparent Distress, WD/WN HEENT: PERRL/EOMI, Pharynx Normal, Pale Conjunctivae (L), Pale Conjunctivae (R) Neck: Normal Inspection, Non Tender, Supple Respiratory: Chest Non Tender, No Accessory Muscle Use, No Respiratory Distress Cardiovascular: Regular Rate, Rhythm, No Edema, No Murmur Gastrointestinal: non tender, soft, no organomegaly, no pulsatile mass Extremity: Normal Inspection, Non Tender, Pedal Edema Neurologic/Psychiatric: Alert, Oriented x3, Depressed Affect Skin: Warm/Dry, Pallor Results Lab Laboratory Tests 3/20/20 11:42: Lab Scanned Report Transfusion Reaction Form 10/23/19 12:10: Glucometer 125H 10/24/19 05:23: White Blood Count 5.6, Red Blood Count 2.83L, Hemoglobin 7.2L, Hematocrit 23L, Mean Corpuscular Volume 81, Mean Corpuscular Hemoglobin 25, Mean Corpuscular Hemoglobin Concent 32, Red Cell Distribution Width 19.6H, Platelet Count 99L, Mean Platelet Volume 9.0, Neutrophils (%) (Auto) 64, Lymphocytes (%) (Auto) 18, Monocytes (%) (Auto) 15H, Eosinophils (%) (Auto) 2, Basophils (%) (Auto) 1, Neutrophils # (Auto) 3.6, Lymphocytes # (Auto) 1.0, Monocytes # (Auto) 0.8, Eosinophils # (Auto) 0.1, Basophils # (Auto) 0.1, Sodium Level 143, Potassium Level 3.9, Chloride Level 111H, Carbon Dioxide Level 23, Anion Gap 9, Blood Urea Nitrogen 26H, Creatinine 1.13, Estimat Glomerular Filtration Rate > 60, BUN/Creatinine Ratio 23, Glucose Level 96, Calcium Level 8.9 Microbiology 10/22/19 MRSA Screen - Final, Complete MRSA not isolated Assessment/Plan Assessment/Plan Assessment/Plan Anemia with occult positive stool Chest pain Afib on anticoagulation Plan to hold anticoagulation, transfuse prbc as needed and follow Hg. EGD/colonoscopy Saturday, advance to clear liquids. Prep for colonoscopy to be started Saturday and is ordered. Obtain consent Clinical Quality Measures AMI/AHF: ASA po Prior to arrival: No DVT/VTE Risk/Contraindication: Risk Factor Score Per Nursin RFS Level Per Nursing on Admit: 4+=Very High EDWIN WHATLEY DO Oct 24, 2019 10:28
--- NOTE | 2019-10-24 10:35 | Progress Note - Hospitalist ---
Subjective HPI/CC On Admission Date Seen by Provider: Oct 24, 2019 Time Seen by Provider: 08:05 Anam Powell is a 74-year-old male with past medical history of hypertension, atrial fibrillation, heart failure, GERD, chronic kidney disease, who presented with shortness of breath and chest pain. He reports that he has been having s hortness of breath activity. He also reports chest pain with radiation to his right arm. He denies any associated diaphoresis, nausea, or vomiting. He denies any fevers or chills. He denies any cough. He denies any hematochezia or melena. He denies any hematemesis, epistaxis, or hematuria. He reports feeling lightheaded and dizzy. He reports having a colonoscopy sometime in the distant past but is unsure of what the results were. Subjective/Events-last exam He is feeling much better at this time. He denies any lightheadedness or dizziness. He denies any chest pain or shortness of breath. He denies any hematochezia or melena. Objective Exam Vital Signs Vital Signs Date Time Temp Pulse Resp B/P (MAP) Pulse Ox O2 Delivery O2 Flow Rate FiO2 10/24/19 08:00 36.6 80 16 118/65 (82) 97 Room Air Capillary Refill : Less Than 3 Seconds General Appearance: No Apparent Distress, WD/WN Respiratory: Lungs Clear, Normal Breath Sounds, No Respiratory Distress Cardiovascular: Regular Rate, Rhythm, No Edema, No Murmur Gastrointestinal: Normal Bowel Sounds, Non Tender, Soft Extremity: Normal Inspection, Non Tender, No Pedal Edema Neurologic/Psychiatric: Alert, Oriented x3, No Motor/Sensory Deficits, Normal Mood/Affect Skin: Normal Color, Warm/Dry Results/Procedures Lab Laboratory Tests 10/24/19 05:23 Patient resulted labs reviewed. Assessment/Plan Assessment and Plan Assess & Plan/Chief Complaint Symptomatic anemia Iron deficiency anemia GI bleeding Hemoglobin 2.9 on arrival s/p 4 units PRBC on arrival Gen. surgery consulted, appreciate assistance Planning for EGD/colonoscopy on Saturday Hold anticoagulation Acute kidney injury superimposed on chronic kidney disease Chronic heart failure with reduced ejection fraction Creatinine 2 on arrival, baseline around 1.25 Improved to 1.13 this morning Continue Lasix Paroxysmal atrial fibrillation Hold amiodarone Hold Eliquis DVT prophylaxis: Pharmacologic prophylaxis held due to active major bleeding Diagnosis/Problems Diagnosis/Problems (1) Symptomatic anemia Status: Acute (2) GI bleeding Status: Acute (3) Iron deficiency anemia Status: Acute Qualifiers: Iron deficiency anemia type: chronic blood loss Qualified Codes: D50.0 - Iron deficiency anemia secondary to blood loss (chronic) (4) Acute kidney injury superimposed on chronic kidney disease Status: Acute (5) Heart failure with reduced ejection fraction Status: Chronic Qualifiers: Heart failure chronicity: chronic Qualified Codes: I50.22 - Chronic systolic (congestive) heart failure (6) Atrial fibrillation with RVR Status: Acute Clinical Quality Measures AMI/AHF: ASA po Prior to arrival: No DVT/VTE Risk/Contraindication: Risk Factor Score Per Nursin RFS Level Per Nursing on Admit: 4+=Very High JACKIE GARCIA MD Oct 24, 2019 10:35
[2019-10-24 15:54] VITALS: BP 114/65
--- NOTE | 2019-10-24 16:17 | Progress Note - Cardiology ---
Cardiology SOAP Progress Note Subjective: Does not currently report cp or palp or syncope or shortness of breath at rest Denies n/v/d Has gen weakness No focal weakness Objective: I&O/Vital Signs 10/24/19 10/24/19 10/24/19 10/24/19 04:15 08:00 09:00 15:54 Temp 37.2 36.6 37.3 Pulse 77 80 70 Resp 20 16 20 B/P (MAP) 118/69 (85) 118/65 (82) 114/65 (81) Pulse Ox 96 97 95 O2 Delivery Room Air Room Air Room Air Room Air 10/24/19 00:00 Intake Total 1430 ml Output Total 150 ml Balance 1280 ml Constitutional: AAO x 3, well-developed, well-nourished Respiratory: No accessory muscle use; other (good bilat air entry) Cardiovascular: regular rate-rhythm, S1 and S2, systolic murmur (soft ROBYN at card base) Gastrointestional: No tender; soft; No guarding, No rebound; audible bowel sounds Extremities: No clubbing, No cyanosis, No significant edema Neurologic/Psychiatric: oriented x 3, other (moves all limbs equally) Skin: No rash on exposed areas, No ulcerations on exposed areas Results/Procedures: Labs Laboratory Tests 10/24/19 05:23: White Blood Count 5.6, Red Blood Count 2.83L, Hemoglobin 7.2L, Hematocrit 23L, Mean Corpuscular Volume 81, Mean Corpuscular Hemoglobin 25, Mean Corpuscular Hemoglobin Concent 32, Red Cell Distribution Width 19.6H, Platelet Count 99L, Mean Platelet Volume 9.0, Neutrophils (%) (Auto) 64, Lymphocytes (%) (Auto) 18, Monocytes (%) (Auto) 15H, Eosinophils (%) (Auto) 2, Basophils (%) (Auto) 1, Neutrophils # (Auto) 3.6, Lymphocytes # (Auto) 1.0, Monocytes # (Auto) 0.8, Eosinophils # (Auto) 0.1, Basophils # (Auto) 0.1, Sodium Level 143, Potassium Level 3.9, Chloride Level 111H, Carbon Dioxide Level 23, Anion Gap 9, Blood Urea Nitrogen 26H, Creatinine 1.13, Estimat Glomerular Filtration Rate > 60, BUN/Creatinine Ratio 23, Glucose Level 96, Calcium Level 8.9 Microbiology 3/19/20 MRSA Screen - Final, Complete MRSA not isolated A/P: Assessment: Profound anemia,likely due to GI bleed for which he is awaiting further eval PAF. OAC being held because of GI bleed requiring transfusions Chest pain, likely due to demand ischemia due to profound anemia, resolved after transfusion Severe anemia, maintained on Coumadin, hold for now, possible endoscopy per Dr Mejia Chronic systolic CHF (HFrEF), ejection fraction 40 percent, acute on chronic. better today Paroxysmal atrial fibrillation, had 2 VINI and cardioversions in September Hyperthyroidism by history, [facility] managed by primary care physician Plan: * I interviewed and examined him and reviewed his records * Continue current regimen * I answered his CV-related questions * He had many endoscopy-related questions. I answered them to the best of my ability and advised him to discuss details with Dr Mejia/Dr Lee before the scheduled procedure. He understands and states he will do so Clinical Quality Measures AMI/AHF: ASA po Prior to arrival: GUILLE Yeung MD FACP FAC CCDS Oct 24, 2019 16:17
[2019-10-24 19:50] VITALS: BP 115/67
[2019-10-25 00:06] VITALS: BP 136/72
--- NOTE | 2019-10-25 00:28 | NUR ---
PCT REPORTED TEMP VIA TEMPORAL THERMOMETER AT 37.9. THIS RN TOOK TEMP PRIOR TO ADMINISTERING TYLENOL 650 MG PRN, TEMP 37.6. PT SAID THAT HE HAD A TOOTH THAT WAS STARTING TO ACHE SO HE TOOK TYLENOL ANYWAY, HE STILL RATED PAIN AT 0 REGARDLESS OF TOOTH PAIN STARTING.
[2019-10-25 04:30] VITALS: BP 128/71
[2019-10-25 04:38] LABS: BASOPHILS # (AUTO) 0.1 10^3/uL (0.0-0.1); BASOPHILS % (AUTO) 1 % (0-10); EOSINOPHILS # (AUTO) 0.2 10^3/uL (0.0-0.3); EOSINOPHILS % (AUTO) 3 % (0-10); HEMATOCRIT 24 % (40-54); HEMOGLOBIN 7.4 G/DL (13.3-17.7); LYMPHOCYTES # (AUTO) 1.5 X 10^3 (1.0-4.0); LYMPHOCYTES % (AUTO) 24 % (12-44); MEAN CORPUSCULAR HEMOGLOBIN 26 PG (25-34); MEAN CORPUSCULAR HGB CONC 31 G/DL (32-36); MEAN CORPUSCULAR VOLUME 83 FL (80-99); MEAN PLATELET VOLUME 9.8 FL (7.4-10.4); MONOCYTES # (AUTO) 0.8 X 10^3 (0.0-1.0); MONOCYTES % (AUTO) 13 % (0-12); NEUTROPHILS # (AUTO) 3.6 X 10^3 (1.8-7.8); NEUTROPHILS % (AUTO) 59 % (42-75); PLATELET COUNT 98 10^3/uL (130-400); RED CELL DISTRIBUTION WIDTH 20.3 % (10.0-14.5); WHITE BLOOD COUNT 6.1 10^3/uL (4.3-11.0)
[2019-10-25 04:56] LABS: BUN/CREATININE RATIO 15; CALCIUM 8.6 MG/DL (8.5-10.1); CARBON DIOXIDE 23 MMOL/L (21-32); CHLORIDE 109 MMOL/L (98-107); CREATININE SERUM 0.99 MG/DL (0.60-1.30); GFR ESTIMATED > 60; GLUCOSE 87 MG/DL (70-105); POTASSIUM 3.7 MMOL/L (3.6-5.0); SODIUM 141 MMOL/L (135-145)
[2019-10-25 08:00] VITALS: BP 119/68
[2019-10-25] MEDS: PANTOPRAZOLE 40 MG (PROTONIX) VIAL IV SCH ×2 (08:22→20:42)
[2019-10-25] MEDS: DOCUSATE SODIUM 100 MG (COLACE) CAP PO SCH ×3 (08:22→20:36)
[2019-10-25] MEDS: FUROSEMIDE 20 MG (LASIX) TAB PO SCH (08:22)
--- NOTE | 2019-10-25 08:55 | Progress Note - Cardiology ---
Cardiology SOAP Progress Note Subjective: He does not report any new symptoms No shortness of breath at rest No cp or palp or syncope Gen malaise No focal weakness No n/v/d Objective: I&O/Vital Signs 10/24/19 10/25/19 10/25/19 21:00 00:06 04:30 Temp 37.9 37.5 Pulse 80 74 Resp 20 18 B/P (MAP) 136/72 (93) 128/71 (90) Pulse Ox 94 94 O2 Delivery Room Air Room Air Room Air 10/25/19 00:00 Intake Total 1820 ml Balance 1820 ml Constitutional: AAO x 3, well-developed, well-nourished Respiratory: No accessory muscle use; other (good bilat air entry) Cardiovascular: regular rate-rhythm, S1 and S2, systolic murmur (soft ROBYN at card base) Gastrointestional: No tender; soft; No guarding, No rebound; audible bowel sounds Extremities: No clubbing, No cyanosis, No significant edema Neurologic/Psychiatric: oriented x 3, other (moves all limbs equally) Skin: No rash on exposed areas, No ulcerations on exposed areas Results/Procedures: Labs Laboratory Tests 10/25/19 03:40: White Blood Count 6.1, Red Blood Count 2.87L, Hemoglobin 7.4L, Hematocrit 24L, Mean Corpuscular Volume 83, Mean Corpuscular Hemoglobin 26, Mean Corpuscular Hemoglobin Concent 31L, Red Cell Distribution Width 20.3H, Platelet Count 98L, Mean Platelet Volume 9.8, Neutrophils (%) (Auto) 59, Lymphocytes (%) (Auto) 24, Monocytes (%) (Auto) 13H, Eosinophils (%) (Auto) 3, Basophils (%) (Auto) 1, Neutrophils # (Auto) 3.6, Lymphocytes # (Auto) 1.5, Monocytes # (Auto) 0.8, Eosinophils # (Auto) 0.2, Basophils # (Auto) 0.1, Sodium Level 141, Potassium Level 3.7, Chloride Level 109H, Carbon Dioxide Level 23, Anion Gap 9, Blood Urea Nitrogen 15, Creatinine 0.99, Estimat Glomerular Filtration Rate > 60, BUN/Creatinine Ratio 15, Glucose Level 87, Calcium Level 8.6 Microbiology 10/22/19 MRSA Screen - Final, Complete MRSA not isolated Laboratory Tests 10/23/19 09:58 10/24/19 05:23 10/25/19 03:40 A/P: Assessment: Profound anemia, likely due to GI bleed for which he is awaiting further eval PAF. OAC being held because of GI bleed requiring transfusions Chest pain, likely due to demand ischemia due to profound anemia, resolved after transfusion Severe anemia, maintained on Coumadin, hold for now, possible endoscopy per Dr Mejia Chronic systolic CHF (HFrEF), ejection fraction 40 percent, acute on chronic. better today Paroxysmal atrial fibrillation, had 2 VINI and cardioversions in September Hyperthyroidism by history, managed by the [facility], managed by primary care physician Plan: * Continue current regimen * Monitor labs * Further cardiac recs to be based on results of endoscopy * I answered his CV-related questions Clinical Quality Measures AMI/AHF: ASA po Prior to arrival: GUILLE Yeung MD FACP FAC CCDS Oct 25, 2019 08:55
--- NOTE | 2019-10-25 11:17 | Progress Note - Hospitalist ---
Subjective HPI/CC On Admission Date Seen by Provider: Oct 25, 2019 Time Seen by Provider: 09:45 Anam Powell is a 74-year-old male with past medical history of hypertension, atrial fibrillation, heart failure, GERD, chronic kidney disease, who presented with shortness of breath and chest pain. He reports that he has been having s hortness of breath activity. He also reports chest pain with radiation to his right arm. He denies any associated diaphoresis, nausea, or vomiting. He denies any fevers or chills. He denies any cough. He denies any hematochezia or melena. He denies any hematemesis, epistaxis, or hematuria. He reports feeling lightheaded and dizzy. He reports having a colonoscopy sometime in the distant past but is unsure of what the results were. Subjective/Events-last exam he has no new complaints or concerns this morning. He has not had any hematochezia or melena. He denies any lightheadedness or dizziness. He denies any chest pain or shortness of breath. Objective Exam Vital Signs Vital Signs Date Time Temp Pulse Resp B/P (MAP) Pulse Ox O2 Delivery O2 Flow Rate FiO2 10/25/19 09:00 96 Room Air 10/25/19 08:00 36.5 75 16 119/68 (85) Capillary Refill : Less Than 3 Seconds General Appearance: No Apparent Distress, WD/WN Respiratory: Lungs Clear, Normal Breath Sounds, No Respiratory Distress Cardiovascular: Regular Rate, Rhythm, No Edema, No Murmur Gastrointestinal: Normal Bowel Sounds, Non Tender, Soft Extremity: Normal Inspection, Non Tender, No Pedal Edema Neurologic/Psychiatric: Alert, Oriented x3, No Motor/Sensory Deficits, Normal Mood/Affect Skin: Normal Color, Warm/Dry Results/Procedures Lab Laboratory Tests 10/25/19 03:40 Patient resulted labs reviewed. Assessment/Plan Assessment and Plan Assess & Plan/Chief Complaint Symptomatic anemia Iron deficiency anemia GI bleeding Hemoglobin 2.9 on arrival s/p 4 units PRBC on arrival Gen. surgery consulted, appreciate assistance Planning for EGD/colonoscopy on Saturday colon prep today Hold anticoagulation nothing by mouth at midnight Acute kidney injury superimposed on chronic kidney disease Chronic heart failure with reduced ejection fraction Creatinine 2 on arrival, baseline appears to be around 1 Improved to 0.99 this morning Continue Lasix Paroxysmal atrial fibrillation Hold amiodarone Hold Eliquis DVT prophylaxis: Pharmacologic prophylaxis held due to active major bleeding Diagnosis/Problems Diagnosis/Problems (1) Symptomatic anemia Status: Acute (2) GI bleeding Status: Acute (3) Iron deficiency anemia Status: Acute Qualifiers: Iron deficiency anemia type: chronic blood loss Qualified Codes: D50.0 - Iron deficiency anemia secondary to blood loss (chronic) (4) Acute kidney injury superimposed on chronic kidney disease Status: Resolved Resolution Date/Time: 10/25/19 @ 11:17 (5) Heart failure with reduced ejection fraction Status: Chronic Qualifiers: Heart failure chronicity: chronic Qualified Codes: I50.22 - Chronic systolic (congestive) heart failure (6) Atrial fibrillation with RVR Status: Acute Clinical Quality Measures AMI/AHF: ASA po Prior to arrival: No DVT/VTE Risk/Contraindication: Risk Factor Score Per Nursin RFS Level Per Nursing on Admit: 4+=Very High JACKIE GARCIA MD Oct 25, 2019 11:17
[2019-10-25 12:00] VITALS: BP 122/70
[2019-10-25] MEDS ORDERED: GOLYTELY POWDER 4000 ML BTL PO ONE (12:00)
[2019-10-25] MEDS ORDERED: GOLYTELY POWDER 4000 ML BTL PO NR (12:00)
--- NOTE | 2019-10-25 13:41 | Progress Note - Surgery ---
Subjective Time Seen by a Provider: 12:41 Subjective/Events-last exam Pt seen and examined, has started his prep and is beginning to have BM's. Denies abdominal pain. Review of Systems General: No Chills, No Night Sweats Pulmonary: No Dyspnea, No Cough Cardiovascular: No: Chest Pain, Palpitations Gastrointestinal: No: Nausea, Vomiting Objective Exam Vital Signs Date Time Temp Pulse Resp B/P (MAP) Pulse Ox O2 Delivery O2 Flow Rate FiO2 10/25/19 09:00 96 Room Air 10/25/19 08:00 36.5 75 16 119/68 (85) 96 Room Air 10/25/19 04:30 37.5 74 18 128/71 (90) 94 Room Air 10/25/19 00:06 37.9 80 20 136/72 (93) 94 Room Air 10/24/19 21:00 Room Air 10/24/19 19:50 37.8 75 22 115/67 (83) 96 Room Air 10/24/19 15:54 37.3 70 20 114/65 (81) 95 Room Air I & O 10/25/19 07:00 Intake Total 2120 ml Balance 2120 ml Capillary Refill : Less Than 3 Seconds General Appearance: No Apparent Distress, WD/WN HEENT: PERRL/EOMI, Pharynx Normal, Pale Conjunctivae (L), Pale Conjunctivae (R) Neck: Normal Inspection, Non Tender, Supple Respiratory: Lungs Clear, Normal Breath Sounds, No Respiratory Distress Cardiovascular: Regular Rate, Rhythm, No Edema, No Murmur Gastrointestinal: non tender, soft, no organomegaly, no pulsatile mass Extremity: Normal Inspection, Non Tender, No Pedal Edema Neurologic/Psychiatric: Alert, Oriented x3, No Motor/Sensory Deficits, Normal Mood/Affect Skin: Normal Color, Warm/Dry Results Lab Laboratory Tests 10/25/19 03:40: White Blood Count 6.1, Red Blood Count 2.87L, Hemoglobin 7.4L, Hematocrit 24L, Mean Corpuscular Volume 83, Mean Corpuscular Hemoglobin 26, Mean Corpuscular Hemoglobin Concent 31L, Red Cell Distribution Width 20.3H, Platelet Count 98L, Mean Platelet Volume 9.8, Neutrophils (%) (Auto) 59, Lymphocytes (%) (Auto) 24, Monocytes (%) (Auto) 13H, Eosinophils (%) (Auto) 3, Basophils (%) (Auto) 1, Neutrophils # (Auto) 3.6, Lymphocytes # (Auto) 1.5, Monocytes # (Auto) 0.8, Eosinophils # (Auto) 0.2, Basophils # (Auto) 0.1, Sodium Level 141, Potassium Level 3.7, Chloride Level 109H, Carbon Dioxide Level 23, Anion Gap 9, Blood Urea Nitrogen 15, Creatinine 0.99, Estimat Glomerular Filtration Rate > 60, BUN/Creatinine Ratio 15, Glucose Level 87, Calcium Level 8.6 Microbiology 10/22/19 MRSA Screen - Final, Complete MRSA not isolated Assessment/Plan Assessment/Plan Assessment/Plan Anemia with occult positive stool Chest pain Afib on anticoagulation Plan to hold anticoagulation, transfuse prbc as needed and follow Hg. EGD/colonoscopy Saturday, advance to clear liquids. Prep for colonoscopy has been started, pt had no questions. Clinical Quality Measures AMI/AHF: ASA po Prior to arrival: No DVT/VTE Risk/Contraindication: Risk Factor Score Per Nursin RFS Level Per Nursing on Admit: 4+=Very High EDWIN WHATLEY DO Oct 25, 2019 13:41
[2019-10-25 16:49] VITALS: BP 141/78
[2019-10-25 20:55] VITALS: BP 128/67
[2019-10-26] VITALS: BP 126/69
[2019-10-26 04:00] VITALS: BP 115/65
[2019-10-26 05:31] LABS: BASOPHILS % (AUTO) 1 % (0-10); EOSINOPHILS # (AUTO) 0.2 10^3/uL (0.0-0.3); EOSINOPHILS % (AUTO) 5 % (0-10); HEMATOCRIT 24 % (40-54); HEMOGLOBIN 7.3 G/DL (13.3-17.7); LYMPHOCYTES # (AUTO) 1.1 X 10^3 (1.0-4.0); LYMPHOCYTES % (AUTO) 24 % (12-44); MEAN CORPUSCULAR HEMOGLOBIN 26 PG (25-34); MEAN CORPUSCULAR HGB CONC 30 G/DL (32-36); MEAN CORPUSCULAR VOLUME 85 FL (80-99); MEAN PLATELET VOLUME 9.3 FL (7.4-10.4); MONOCYTES # (AUTO) 0.6 X 10^3 (0.0-1.0); MONOCYTES % (AUTO) 13 % (0-12); NEUTROPHILS # (AUTO) 2.8 X 10^3 (1.8-7.8); NEUTROPHILS % (AUTO) 58 % (42-75); PLATELET COUNT 99 10^3/uL (130-400); RED CELL DISTRIBUTION WIDTH 22.2 % (10.0-14.5); WHITE BLOOD COUNT 4.7 10^3/uL (4.3-11.0)
[2019-10-26 05:49] LABS: BUN/CREATININE RATIO 9; CALCIUM 8.8 MG/DL (8.5-10.1); CARBON DIOXIDE 26 MMOL/L (21-32); CHLORIDE 107 MMOL/L (98-107); GFR ESTIMATED > 60; GLUCOSE 87 MG/DL (70-105); POTASSIUM 3.5 MMOL/L (3.6-5.0); SODIUM 142 MMOL/L (135-145)
[2019-10-26 08:00] VITALS: BP 141/74
[2019-10-26] MEDS: DOCUSATE SODIUM 100 MG (COLACE) CAP PO SCH (08:06)
[2019-10-26] MEDS: FUROSEMIDE 20 MG (LASIX) TAB PO SCH (08:06)
[2019-10-26] MEDS: PANTOPRAZOLE 40 MG (PROTONIX) VIAL IV SCH (08:51)
--- NOTE | 2019-10-26 09:51 | Progress Note - Cardiology ---
Cardiology SOAP Progress Note Subjective: No new symptoms Gen malaise No cp or shortness of breath or palp or syncope No n/v/d Objective: I&O/Vital Signs 10/26/19 10/26/19 10/26/19 00:00 04:00 08:00 Temp 37.4 37.2 37.5 Pulse 66 73 75 Resp 19 20 B/P (MAP) 126/69 (88) 115/65 (82) 141/74 (96) Pulse Ox 94 92 94 O2 Delivery Room Air Room Air Room Air 10/26/19 00:00 Intake Total 6000 ml Balance 6000 ml Constitutional: AAO x 3, well-developed, well-nourished Respiratory: No accessory muscle use; other (good bilat air entry) Cardiovascular: regular rate-rhythm, S1 and S2, systolic murmur (soft ROBYN at card base) Gastrointestional: No tender; soft; No guarding, No rebound; audible bowel sounds Extremities: No clubbing, No cyanosis, No significant edema Neurologic/Psychiatric: oriented x 3, other (moves all limbs equally) Skin: No rash on exposed areas, No ulcerations on exposed areas Results/Procedures: Labs Laboratory Tests 10/26/19 05:00: White Blood Count 4.7, Red Blood Count 2.85L, Hemoglobin 7.3L, Hematocrit 24L, Mean Corpuscular Volume 85, Mean Corpuscular Hemoglobin 26, Mean Corpuscular Hemoglobin Concent 30L, Red Cell Distribution Width 22.2H, Platelet Count 99L, Mean Platelet Volume 9.3, Neutrophils (%) (Auto) 58, Lymphocytes (%) (Auto) 24, Monocytes (%) (Auto) 13H, Eosinophils (%) (Auto) 5, Basophils (%) (Auto) 1, Neutrophils # (Auto) 2.8, Lymphocytes # (Auto) 1.1, Monocytes # (Auto) 0.6, Eosinophils # (Auto) 0.2, Basophils # (Auto) 0.0, Sodium Level 142, Potassium Level 3.5L, Chloride Level 107, Carbon Dioxide Level 26, Anion Gap 9, Blood Urea Nitrogen 8, Creatinine 0.90, Estimat Glomerular Filtration Rate > 60, BUN/Crea tinine Ratio 9, Glucose Level 87, Calcium Level 8.8 Microbiology 10/22/19 MRSA Screen - Final, Complete MRSA not isolated Laboratory Tests 10/25/19 03:40 10/26/19 05:00 A/P: Assessment: Profound anemia, likely due to GI bleed for which he is awaiting further eval PAF. OAC being held because of GI bleed requiring transfusions Chest pain, likely due to demand ischemia due to profound anemia, resolved after transfusion Severe anemia, maintained on Coumadin, hold for now, possible endoscopy per Dr Mejia Chronic systolic CHF (HFrEF), ejection fraction 40 percent, acute on chronic. better today Paroxysmal atrial fibrillation, had 2 VINI and cardioversions in September Hyperthyroidism by history, [facility], managed by primary care physician Plan: * D/c furosemide because no clinical CHF and K at low end of normal * Monitor labs * Further cardiac recs to be based on results of endoscopy * I answered his CV-related questions Clinical Quality Measures AMI/AHF: ASA po Prior to arrival: GUILLE Yeung MD FACP FAC CCDS Oct 26, 2019 09:51
[2019-10-26] MEDS ORDERED: LACTATED RINGERS 1,000 ML IV ONE ×2 (10:40→12:00)
[2019-10-26] MEDS ORDERED: PROPOFOL INJECTION 50 ML IV ONE (10:51)
[2019-10-26] MEDS ORDERED: MIDAZOLAM 2 MG/2 ML (VERSED) VIAL ONE (10:51)
--- NOTE | 2019-10-26 11:10 | Progress Note - Surgery ---
Subjective Date Seen by a Provider: Oct 26, 2019 Time Seen by a Provider: 11:07 Subjective/Events-last exam Patient hgb 7.3. No chest pain. Tolerated prep. No new complaints. Denies n/v fever sweats chills shortness of breath or chest pain. Objective Exam Vital Signs Date Time Temp Pulse Resp B/P (MAP) Pulse Ox O2 Delivery O2 Flow Rate FiO2 10/26/19 09:00 94 Room Air 10/26/19 08:00 37.5 75 20 141/74 (96) 94 Room Air 10/26/19 04:00 37.2 73 19 115/65 (82) 92 Room Air 10/26/19 00:00 37.4 66 19 126/69 (88) 94 Room Air 10/25/19 21:00 96 Room Air 10/25/19 20:55 37.5 78 17 128/67 (87) 95 Room Air 10/25/19 16:49 37.2 76 16 141/78 (99) 97 Room Air 10/25/19 12:00 36.4 71 16 122/70 (87) 95 Room Air I & O 10/26/19 07:00 Intake Total 6000 ml Balance 6000 ml Capillary Refill : Less Than 3 Seconds General Appearance: No Apparent Distress, WD/WN HEENT: PERRL/EOMI, Pharynx Normal, Pale Conjunctivae (L), Pale Conjunctivae (R) Neck: Normal Inspection, Non Tender, Supple Respiratory: Chest Non Tender, No Accessory Muscle Use, No Respiratory Distress Cardiovascular: Regular Rate, Rhythm Gastrointestinal: non tender, soft, no organomegaly, no pulsatile mass Extremity: Normal Inspection, Non Tender, No Pedal Edema Neurologic/Psychiatric: Alert, Oriented x3, No Motor/Sensory Deficits, Normal Mood/Affect Skin: Normal Color, Warm/Dry Lymphatic: No Adenopathy Results Lab Laboratory Tests 10/26/19 05:00: White Blood Count 4.7, Red Blood Count 2.85L, Hemoglobin 7.3L, Hematocrit 24L, Mean Corpuscular Volume 85, Mean Corpuscular Hemoglobin 26, Mean Corpuscular Hemoglobin Concent 30L, Red Cell Distribution Width 22.2H, Platelet Count 99L, Mean Platelet Volume 9.3, Neutrophils (%) (Auto) 58, Lymphocytes (%) (Auto) 24, Monocytes (%) (Auto) 13H, Eosinophils (%) (Auto) 5, Basophils (%) (Auto) 1, Neutrophils # (Auto) 2.8, Lymphocytes # (Auto) 1.1, Monocytes # (Auto) 0.6, Eosinophils # (Auto) 0.2, Basophils # (Auto) 0.0, Sodium Level 142, Potassium Level 3.5L, Chloride Level 107, Carbon Dioxide Level 26, Anion Gap 9, Blood Urea Nitrogen 8, Creatinine 0.90, Estimat Glomerular Filtration Rate > 60, BUN/Creatinine Ratio 9, Glucose Level 87, Calcium Level 8.8 Microbiology 10/22/19 MRSA Screen - Final, Complete MRSA not isolated Assessment/Plan Assessment/Plan Assessment/Plan Anemia with occult positive stool Chest pain Afib on anticoagulation Plan to hold anticoagulation transfuse prbc as needed and follow Hg. EGD/colonoscopy today. Protonix Clinical Quality Measures AMI/AHF: ASA po Prior to arrival: No DVT/VTE Risk/Contraindication: Risk Factor Score Per Nursin RFS Level Per Nursing on Admit: 4+=Very High SHY CAO DO Oct 26, 2019 11:10
[2019-10-26 11:50] VITALS: BP 109/54
--- NOTE | 2019-10-26 11:59 | Progress Note-Post Operative ---
Post-Operative Progess Note Surgeon (s)/Registered Nurse Maternity (s) Surgeon SHY CAO DO Registered Nurse Maternity: na Pre-Operative Diagnosis anemia, gi bleed Post-Operative Diagnosis hiatal hernia, avm of colon, descending colon polyp Procedure & Operative Findings Date of Procedure 10/26/19 Procedure Performed/Findings egd and colonoscopy with hot biopsy cecm and snare polypectomy of descending colon Anesthesia Type per raftsman Estimated Blood Loss Estimated blood loss (mL): scant Specimens/Packing Specimens Removed cecum, descending colon polyp SHY CAO DO Oct 26, 2019 11:59
[2019-10-26 12:00] VITALS: BP_SYST 113; BP_SYST 132; BP_DIAS 59; BP_DIAS 75
--- NOTE | 2019-10-26 13:05 | Anesthesia-General Post-Op ---
MAC Patient Condition Mental Status/LOC: Same as Preop Cardiovascular: Satisfactory Nausea/Vomiting: Absent Respiratory: Satisfactory Pain: Controlled Complications: Absent Post Op Complications Complications None Follow Up Care/Instructions Patient Instructions None needed. Anesthesiology Discharge Order Discharge Order Patient is doing well, no complaints, stable vital signs, no apparent adverse anesthesia problems. No complications reported per nursing. KM GARZA CRNA Oct 26, 2019 13:05
[2019-10-26] MEDS ORDERED: APIX5TAB PO (13:14)
--- NOTE | 2019-10-26 13:50 | OPERATIVE REPORT ---
DATE OF SERVICE: 10/26/2019 PREOPERATIVE DIAGNOSES: Anemia, gastrointestinal bleed. POSTOPERATIVE DIAGNOSES: Hiatal hernia, AVMs of colon and descending colon polyp. SURGEON: Shy Mejia DO ANESTHESIA: Per PRINCIPAL CONSULTANT. ESTIMATED BLOOD LOSS: Scant. COMPLICATIONS: None. INDICATIONS: The patient is a 74-year-old male who presented to the hospital with a hemoglobin of 2.9. He has occult positive stool. The patient on anticoagulation. This has been held. The patient's hemoglobin after transfusion is currently 7.3, which has been stable over the last couple of days. The patient understands risks and benefits of procedure and wished to proceed with procedure. Consent was signed in the chart. DESCRIPTION OF PROCEDURE: The patient was taken to the endoscopy suite, placed in left lateral recumbent position. Timeout was performed. Scope was inserted in mouth, down the esophagus, stomach and into the duodenum without difficulty. There were no polyps, masses or ulcerations within the duodenum. Scope was then slowly retracted back into the stomach where it was further insufflated. No polyps, masses or ulcerations. No erythematous changes. Scope was retroflexed noting a small hiatal hernia, no other pathology noted. Scope was returned to its normal position, slowly withdrawn to the distal esophagus, which had normal appearance. About midway through the esophagus, there were some esophageal varices present. No bleeding. Scope was then continuously retracted back until completely removed. The colonoscopy was then performed. Digital rectal exam was performed. There were no palpable polyps, masses or ulcerations. Scope was inserted in the rectum, advanced all the way to cecum with minimal difficulty. Prep was adequate with irrigation and suction. Within the cecum, a small AVM was present, which hot biopsy was performed. Scope was then slowly began to be retracted back. No other polyps, masses or ulcerations present within the cecum, ascending, transverse colon. In the descending colon, a polyp was present, which snare polypectomy was performed. Scope was then continued slowly retracted back. No other polyps, masses or ulcerations within the remainder of the descending, sigmoid and rectum. Throughout the colon, multiple small AVMs present. Once in the rectum, scope was retroflexed noting no other pathology. Scope was returned to its normal position, slowly withdrawn until completely removed. RECOMMENDATIONS: The patient will follow up on pathology and if has any return of bleeding, he should be reevaluated, likely source of bleeding is from AVM, but no active bleeding seen at that time of endoscopy. Job ID: [id number] DocumentID: [id number] Dictated Date: 10/26/2019 12:04:23 Card Hand Date: 10/26/2019 13:48:50 Dictated By: SHY MEJIA DO
--- NOTE | 2019-10-26 14:01 | Discharge Inst-Simple/Standard ---
Discharge Inst-Standard Discharge Medications New, Converted or Re-Newed RX: Transmitted to Pharmacy Patient Instructions/Follow Up Plan of Care/Instructions/FU: Please continue to take your medications as written. Please follow up with your PCP in the next week to follow up this hospital stay. Activity as Tolerated: Yes Discharge Diet: No Restrictions Return to The Hospital For: Chest pain, shortness of breath, dark or bloody stools, weakness, if you feel you are getting worse. Planned Outpatient Orders/Ref. Pneu Vac Indicated: Yes TADEO JOHNSON MD Oct 26, 2019 14:01
--- NOTE | 2019-10-26 14:07 | Discharge Summary ---
Diagnosis/Chief Complaint Date of Admission Oct 22, 2019 at 13:48 Date of Discharge Discharge Date: Oct 26, 2019 Admission Diagnosis Symptomatic anemia Primary Care Roney Muro DO Discharge Diagnosis (1) Symptomatic anemia Status: Acute (2) GI bleeding Status: Acute (3) Iron deficiency anemia Status: Acute (4) Acute kidney injury superimposed on chronic kidney disease Status: Resolved (5) Heart failure with reduced ejection fraction Status: Chronic (6) Atrial fibrillation with RVR Status: Acute Discharge Summary Discharge Physical Exam Allergies: Coded Allergies: No Known Drug Allergies (Unverified , 09/03/19) Vitals & I&Os Vital Signs Date Time Temp Pulse Resp B/P (MAP) Pulse Ox O2 Delivery O2 Flow Rate FiO2 10/26/19 12:00 36.4 78 20 132/75 (94) 98 Room Air 10/26/19 11:50 6 General Appearance: No Apparent Distress, WD/WN Cardiovascular: Regular Rate, Rhythm, No Murmur Neurologic/Psychiatric: Alert, Oriented x3 Hospital Course Pt is a 74yoCM who was admitted due to GI bleed and profound anemia of 2.9. He was transfused and his hemoglobin improved appropriately. He underwent EGD/Colonoscopy which revealed AVM but no evidence of active bleeding. His hemoglobin remained stable and he was discharged home in improved condition. He is to continue to hold his anticoagulation for two more days. He is to follow up with his PCP and Dr Laura to follow up this hospital stay. Labs (last 24 hrs) Laboratory Tests 10/26/19 05:00: White Blood Count 4.7, Red Blood Count 2.85L, Hemoglobin 7.3L, Hematocrit 24L, Mean Corpuscular Volume 85, Mean Corpuscular Hemoglobin 26, Mean Corpuscular Hemoglobin Concent 30L, Red Cell Distribution Width 22.2H, Platelet Count 99L, Mean Platelet Volume 9.3, Neutrophils (%) (Auto) 58, Lymphocytes (%) (Auto) 24, Monocytes (%) (Auto) 13H, Eosinophils (%) (Auto) 5, Basophils (%) (Auto) 1, Neutrophils # (Auto) 2.8, Lymphocytes # (Auto) 1.1, Monocytes # (Auto) 0.6, Eosinophils # (Auto) 0.2, Basophils # (Auto) 0.0, Sodium Level 142, Potassium Level 3.5L, Chloride Level 107, Carbon Dioxide Level 26, Anion Gap 9, Blood Urea Nitrogen 8, Creatinine 0.90, Estimat Glomerular Filtration Rate > 60, BUN/Creatinine Ratio 9, Glucose Level 87, Calcium Level 8.8 Microbiology 10/22/19 MRSA Screen - Final, Complete MRSA not isolated Patient resulted labs reviewed. Discussion & Recommendations Discharge Planning: >30 minutes discharge planning Discharge Home Medications: Active Scripts Active Eliquis (Apixaban) 5 Mg Tablet 5 Mg PO BID 30 Days hold for two days and then resume Reported Amiodarone HCl 200 Mg Tablet 100 Mg PO BID TAKES OF A 200MG TAB TO EQUAL 100MG TWICE DAILY Pantoprazole Sodium 40 Mg Tablet.dr 40 Mg PO DAILY Potassium Chloride 10 Meq Tab.er.prt 10 Meq PO DAILY Furosemide 20 Mg Tablet 20 Mg PO DAILY Lisinopril 10 Mg Tablet 10 Mg PO DAILY Instructions to patient/family Please see electronic discharge instructions given to patient. 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
[2019-10-26 15:14] VITALS: BP 113/59
--- NOTE | 2019-10-28 07:14 | Physician Query Clarification ---
PQ-Conflicting Diagnosis Admission/Discharge Admission Date: Oct 22, 2019 at 13:48 Discharge Date: Oct 26, 2019 at 15:14 The medical record reflects the following clinical scenario: History/Risk Factors: Shortness of breath, Chest pain Clinical Findings: Chronic systolic CHF(HFrEF), EF 40%, acute on chronic better today, d/c furosemide because no clinical CHF Treatment: IV lasix Question: Do you agree with the impression of the [Acute on chronic systolic CHF] per [Santino Crooks]. Please document a response in Progress Note or Discharge Summary. 1. Yes 2. No 3. Other, with explanation of clinical findings 4. Clinically undetermined, no explanation for clinical findings. PHYSICIAN RESPONSE Do you agree w/Consulting Dx?: Yes Please remember a lack of response to the above will prompt a phone page by CDI/Coding staff. In responding to this query, please exercise your independent professional judgment. The purpose of this communication is to more accurately reflect the complexity of your patients condition. The fact that a question is asked does not imply that any particular answer is desired or expected. Thank you for your timely response to this clarification. Requestors name: [Meka Rodas ] Phone # [[phone] ] THIS PHYSICIAN QUERY FORM IS A PERMANENT PART OF THE MEDICAL RECORD DALTON WEI Oct 28, 2019 07:14 TADEO JOHNSON MD Oct 28, 2019 10:48
== END 2019-10-26 15:14 | disposition home or self-care (01) | DRG 377 ==
LOC: EDUNIT# 11:33 → ER 11:34 → ICU 13:48 → 4TH 10-23 15:55
PROVIDERS: ADMIT Internal Medicine; ATTEND Internal Medicine
PROC: 0DBM8ZZ Excision of Descending Colon, Via Natural or Artificial Opening Endoscopic (ICD-10-PCS; 2019-10-26)
PROC: 0DJ08ZZ Inspection of Upper Intestinal Tract, Via Natural or Artificial Opening Endoscopic (ICD-10-PCS; principal; 2019-10-26 11:05)
PROC: 0DBH8ZX Excision of Cecum, Via Natural or Artificial Opening Endoscopic, Diagnostic (ICD-10-PCS; 2019-10-26 11:05)
DX: K55.21 Angiodysplasia of colon with hemorrhage (principal); I20.0 Unstable angina; I13.0 Hypertensive heart and chronic kidney disease with heart failure and stage 1 through stage 4 chronic kidney disease, or unspecified chronic kidney disease; I50.23 Acute on chronic systolic (congestive) heart failure; R19.5 Other fecal abnormalities; I95.9 Hypotension, unspecified; I48.0 Paroxysmal atrial fibrillation; Z66 Do not resuscitate; N18.9 Chronic kidney disease, unspecified; E05.90 Thyrotoxicosis, unspecified without thyrotoxic crisis or storm; N17.9 Acute kidney failure, unspecified; M10.9 Gout, unspecified; Z96.651 Presence of right artificial knee joint; Z87.891 Personal history of nicotine dependence; Z79.01 Long term (current) use of anticoagulants; K44.9 Diaphragmatic hernia without obstruction or gangrene; D50.9 Iron deficiency anemia, unspecified; K63.5 Polyp of colon
CPT/HCPCS: 36415; 71045; 80048; 80053; 80061; 82274; 82728; 82962; 83540; 83735; 83874; 83880; 84100; 84443; 84484; 85007; 85014; 85018; 85025; 85027; 85045; 85610; 85730; 86850; 86900; 86901; 86920; 87081; 93005; 93041; 96374; 96375

== ENCOUNTER 2020-07-04 13:03 | Outpatient (RCR) | payer MEDICARE, OTHER ==
[~2020-07-04 13:03] MED LIST changes: -AMIO200T4 PO; +AMIO200T6 PO; +AMLO-250 PO; -AMLO5TAB9 PO; +ASPI-1238 PO; -ASPI-983 PO; -LISI1TAB25 PO; +LISI1TAB46 PO; -PANT40TA3 PO; +PANT40TA52 PO; +POTA10TA36 PO
[2020-07-04 13:36] LABS: BASOPHILS # (AUTO) 0.1 10^3/uL (0.0-0.1); BASOPHILS % (AUTO) 1 % (0-10); EOSINOPHILS # (AUTO) 0.1 10^3/uL (0.0-0.3); EOSINOPHILS % (AUTO) 2 % (0-10); HEMATOCRIT 33 % (40-54); HEMOGLOBIN 10.6 g/dL (13.3-17.7); LYMPHOCYTES # (AUTO) 0.8 10^3/uL (1.0-4.0); LYMPHOCYTES % (AUTO) 22 % (12-44); MEAN CORPUSCULAR HEMOGLOBIN 30 pg (25-34); MEAN CORPUSCULAR HGB CONC 32 g/dL (32-36); MEAN CORPUSCULAR VOLUME 94 fL (80-99); MEAN PLATELET VOLUME 9.7 fL (9.0-12.2); MONOCYTES # (AUTO) 0.5 10^3/uL (0.0-1.0); MONOCYTES % (AUTO) 15 % (0-12); NEUTROPHILS # (AUTO) 2.1 10^3/uL (1.8-7.8); NEUTROPHILS % (AUTO) 60 % (42-75); PLATELET COUNT 142 10^3/uL (130-400); WHITE BLOOD COUNT 3.5 10^3/uL (4.3-11.0)
[2020-07-04 13:59] LABS: ALANINE AMINOTRANSFERASE 21 U/L (0-55); ALBUMIN 3.8 GM/DL (3.2-4.5); ALKALINE PHOSPHATASE 147 U/L (40-136); BILIRUBIN,TOTAL 1.2 MG/DL (0.1-1.0); BUN/CREATININE RATIO 20; CALCIUM 9.4 MG/DL (8.5-10.1); CARBON DIOXIDE 21 MMOL/L (21-32); CHLORIDE 108 MMOL/L (98-107); CREATININE SERUM 1.11 MG/DL (0.60-1.30); GFR ESTIMATED > 60; GLUCOSE 110 MG/DL (70-105); POTASSIUM 4.4 MMOL/L (3.6-5.0); SODIUM 139 MMOL/L (135-145); TOTAL PROTEIN 7.7 GM/DL (6.4-8.2)
== END 2020-08-17 12:42 | disposition home or self-care (01) ==
LOC: ONC 13:03
PROVIDERS: ATTEND Internal Medicine Hematology & Oncology
DX: I48.20 Chronic atrial fibrillation, unspecified (principal); K92.2 Gastrointestinal hemorrhage, unspecified; D50.9 Iron deficiency anemia, unspecified
CPT/HCPCS: 80053; 83615; 85025; G0463; 99214

== ENCOUNTER 2020-08-24 12:36 | Outpatient (RCR) | payer MEDICARE, OTHER ==
[~2020-08-24 12:36] MED LIST changes: +FERRIC CARBOXYMALTOSE (CANCER) 750 MG in NS (IVPB) CANCER CENTER 250 ML IV SCH; -LISI10TA2 PO; +LISI10TA25 PO
== END 2020-11-15 | disposition home or self-care (01) ==
LOC: ONC 12:36
PROVIDERS: ATTEND Internal Medicine Hematology & Oncology
DX: I48.20 Chronic atrial fibrillation, unspecified (principal); K92.2 Gastrointestinal hemorrhage, unspecified; D50.9 Iron deficiency anemia, unspecified
CPT/HCPCS: 96365

== ENCOUNTER 2020-12-01 05:43 | Outpatient (CLI) | payer MEDICARE, OTHER ==
[~2020-12-01] VITALS: Ht 177 cm; Wt 83.0 kg
[~2020-12-01 05:43] MED LIST changes: -FERRIC CARBOXYMALTOSE (CANCER) 750 MG in NS (IVPB) CANCER CENTER 250 ML IV SCH
== END 2020-12-01 09:29 | disposition home or self-care (01) ==
LOC: PREOP 05:43
PROVIDERS: ATTEND Surgery
DX: Z01.818 Encounter for other preprocedural examination (principal)

== ENCOUNTER → 2020-12-02 | Day surgery (SDC) | payer MEDICARE, OTHER ==
[~2020-12-02] VITALS: Ht 177 cm; Wt 83.0 kg
[2020-12-02] VITALS (8 sets, daily range): BP systolic 108–162; BP diastolic 67–105
[~2020-12-02] MED LIST changes: +0.9% SODIUM CHLORIDE PF INJ 20 ML VIAL ONE; +HEParin (CENTRAL IV FLUSH) 500 UNIT/5 ML SYR ONE; +LACTATED RINGERS 1,000 ML IV PRN; +LIDOCAINE/EPI 1%-1:100,000 (XYLOCAINE) 20ML ONE; +ONDANSETRON 4 MG/2 ML (SDV) Z0FRAN IVP PRN; +PROPOFOL INJECTION 50 ML IV ONE; +ceFAZolin 2 GM IV Premixed 50 ML IV ONE; +fentaNYL INJ 100 MCG/2 ML AMP IVP ONE; +proPOfol 200 MG/20 ML (DIPRIVAN) VIAL IV ONE
--- NOTE | 2020-12-02 13:50 | Progress Note-Pre Operative ---
Pre-Operative Progress Note H&P Reviewed The H&P was reviewed, patient examined and no changes noted. Date Seen by Provider: Dec 02, 2020 Time Seen by Provider: 13:50 Date H&P Reviewed: Dec 02, 2020 Time H&P Reviewed: 13:50 Pre-Operative Diagnosis: pancreatic cancer, hepatocellular carcinoma SHY CAO DO Dec 02, 2020 13:50
--- NOTE | 2020-12-02 14:29 | Progress Note-Post Operative ---
Post-Operative Progess Note Surgeon (s)/Sock Lining Examiner (s) Surgeon SHY CAO DO Sock Lining Examiner: na Pre-Operative Diagnosis pancreatic cancer, hepatocellular carcinoma Post-Operative Diagnosis same Procedure & Operative Findings Date of Procedure 12/02/20 Procedure Performed/Findings PROCEDURE: Right internal jugular port placement using ultrasound guidance. COMPLICATIONS: None. INDICATIONS: The patient is a 75 year old male with pancreatic and hepatocellular carcinoma. Patient understands the risks and benefits of port placement and wished to proceed with the procedure. Consent was signed on the chart. PROCEDURE: The patient was taken to the operating suite, was prepped and draped in the sterile fashion. A surgical pause was performed. Ultrasound was used to locate the internal jugular vein. Once located anesthetic was infiltrated above it. Using micro-access kit, the right internal vein was accessed. Dark nonpulsatile blood was withdrawn. The wire was inserted. Fluoroscopy assured proper placement. The needle was removed. The micro-access dilator was advanced over the wire and the wire was removed. The regular wire was inserted and fluoroscopy assured proper placement. The wire was then secured. Local anesthetic was used to anesthetize from the neck for tunneling down to the right chest and for pocket creation. A 15 blade scalpel was used to make an incision over the right chest. Cautery was used to dissect down to the pectoral fascia. A pocket was created with blunt dissection. The dilator sheath was then advanced over the wire under fluoroscopy and the dilator and wire were removed. The Groshong catheter was inserted through the sheath and the sheath was then removed. The Groshong wire was removed. The catheter was then tunneled to the right chest pocket. Fluoroscopy was used to cut to length and this was then attached to the port which was then placed within the pocket. The port was then accessed without difficulty. It was then flushed with saline and then heparin. The subcutaneous tissues were then reapproximated using 3-0 Vicryl. The areas were then washed and dried. Skin Affix was placed over incision. The insertion point of the neck Skin Affix was placed over the incision. The patient tolerated the procedure well without complication and was taken to recovery room in stable condition. Chest x-ray is pending. Anesthesia Type mac c local Estimated Blood Loss Estimated blood loss (mL): minimal Specimens/Packing Specimens Removed SHY Jenkins DO Dec 02, 2020 14:29
--- NOTE | 2020-12-02 14:31 | Discharge Inst-Simple/Standard ---
Discharge Inst-Standard Patient Instructions/Follow Up Plan of Care/Instructions/FU: 2 weeks Roberto Activity as Tolerated: No Discharge Diet: Regular Diet Other Inst to Patient Follow up Appt: Make appointment for 2 week. Instructions: No lifting greater than 10 pounds. No strenuous activity. May shower in 24 hours, no tub bath or soaking. Use incentive spirometer at home as directed. No Smoking Skin/Wound Care: You have special glue over your incision that will fall off on it's own. Ice pack on 15 min off 30 min and repeat for first 48 hours. This reduces swelling and discomfort. Symptoms to Report: Appetite Changes, Extremity Discoloration, Numbness/Tingling, Swelling Increased, Bleeding Excessive, Eyesight Changes, Pain Increased, Urine Color Change, Constipation(Persistent), Fever over 101 degree F, Pain/Pressure in chest, Urinating Difficulty, Cough Up/Vomit Blood, Heart Beat Irreg/Pounding, Pain/Pressure in jaw, Vaginal Bleeding Increase, Cramps in feet or legs, Lightheadedness, Pain/Pressure in shoulder, Diarrhea(Persistent), Memory Changes Suddenly, Questions/Concerns, Weight gain consecutive days, Dizziness/Fainting, Nausea/Vomiting, Shortness of Breath, Weight gain over 2 pounds If questions or concerns contact your physician Or seek help at emergency department. SHY CAO DO Dec 02, 2020 14:31
--- NOTE | 2020-12-02 14:37 | Anesthesia-General Post-Op ---
MAC Patient Condition Mental Status/LOC: Same as Preop Cardiovascular: Satisfactory Nausea/Vomiting: Absent Respiratory: Satisfactory Pain: Controlled Complications: Absent Post Op Complications Complications None Follow Up Care/Instructions Patient Instructions None needed. Anesthesiology Discharge Order Discharge Order Patient is doing well, no complaints, stable vital signs, no apparent adverse anesthesia problems. No complications reported per nursing. ELYSSA CLARK CRNA Dec 02, 2020 14:37
--- NOTE | 2020-12-02 14:42 | Diagnostic Imaging Report ---
INDICATION: Undergoing port placement. TECHNIQUE: Single intraprocedural images right upper chest FINDINGS/ IMPRESSION: The hospital radiology department provided fluoroscopic imaging in support of an interventional procedure. A radiologist was not present. Please reference the operating provider's procedure note. Fluoroscopy Time: 33.7 seconds Single image procedure image demonstrates a right IJ Port-A-Cath is present. Tip is not well-defined but appears to be over the expected location of the SVC. Dictated by: Dictated on workstation # [id number]
--- NOTE | 2020-12-02 15:18 | Diagnostic Imaging Report ---
CHEST 1 VIEW, AP/PA ONLY Indication: Port placement Comparison: 10/23/2019 Findings: Right IJ Port-A-Cath has tip terminating in the lower SVC. No pleural effusion or pneumothorax. Visualized aspects of lungs are clear. Stable mild enlargement of cardiac silhouette. Impression: 1. Well-positioned right IJ port. 2. No insertional complication, such as pneumothorax. Dictated by: Dictated on workstation # [id number]
== END ==
LOC: SDC 11:34
PROVIDERS: ATTEND Surgery
DX: C25.9 Malignant neoplasm of pancreas, unspecified (principal); C22.8 Malignant neoplasm of liver, primary, unspecified as to type; I11.0 Hypertensive heart disease with heart failure; I50.9 Heart failure, unspecified; I48.91 Unspecified atrial fibrillation; K21.9 Gastro-esophageal reflux disease without esophagitis; D50.9 Iron deficiency anemia, unspecified; M19.90 Unspecified osteoarthritis, unspecified site; Z79.899 Other long term (current) drug therapy; Z87.891 Personal history of nicotine dependence; Z20.822 Contact with and (suspected) exposure to COVID-19
CPT/HCPCS: 36561; 71045; 76000; 87081; C1788; U0002; 87635

== ENCOUNTER 2021-02-23 09:43 | Outpatient (RCR) | payer MEDICARE, OTHER ==
[2020-11-29 10:09] LABS: BASOPHILS # (AUTO) 0.1 10^3/uL (0.0-0.1); BASOPHILS % (AUTO) 1 % (0-10); EOSINOPHILS # (AUTO) 0.1 10^3/uL (0.0-0.3); EOSINOPHILS % (AUTO) 2 % (0-10); HEMATOCRIT 36 % (40-54); HEMOGLOBIN 11.3 g/dL (13.3-17.7); LYMPHOCYTES # (AUTO) 0.8 10^3/uL (1.0-4.0); LYMPHOCYTES % (AUTO) 13 % (12-44); MEAN CORPUSCULAR HEMOGLOBIN 29 pg (25-34); MEAN CORPUSCULAR HGB CONC 31 g/dL (32-36); MEAN CORPUSCULAR VOLUME 92 fL (80-99); MONOCYTES # (AUTO) 0.6 10^3/uL (0.0-1.0); MONOCYTES % (AUTO) 10 % (0-12); NEUTROPHILS # (AUTO) 4.7 10^3/uL (1.8-7.8); NEUTROPHILS % (AUTO) 74 % (42-75); PLATELET COUNT 180 10^3/uL (130-400); WHITE BLOOD COUNT 6.3 10^3/uL (4.3-11.0)
[2020-11-29 10:33] LABS: ALANINE AMINOTRANSFERASE 32 U/L (0-55); ALBUMIN 3.5 GM/DL (3.2-4.5); ALKALINE PHOSPHATASE 280 U/L (40-136); BILIRUBIN,TOTAL 1.9 MG/DL (0.1-1.0); BUN/CREATININE RATIO 30; CALCIUM 9.9 MG/DL (8.5-10.1); CARBON DIOXIDE 23 MMOL/L (21-32); CHLORIDE 104 MMOL/L (98-107); CREATININE SERUM 1.15 MG/DL (0.60-1.30); GFR ESTIMATED > 60; GLUCOSE 137 MG/DL (70-105); POTASSIUM 4.8 MMOL/L (3.6-5.0); SODIUM 137 MMOL/L (135-145); TOTAL PROTEIN 7.8 GM/DL (6.4-8.2)
[2020-12-08 10:29] LABS: BASOPHILS % (AUTO) 1 % (0-10); EOSINOPHILS # (AUTO) 0.1 10^3/uL (0.0-0.3); EOSINOPHILS % (AUTO) 1 % (0-10); HEMATOCRIT 34 % (40-54); HEMOGLOBIN 10.8 g/dL (13.3-17.7); LYMPHOCYTES # (AUTO) 0.7 10^3/uL (1.0-4.0); LYMPHOCYTES % (AUTO) 13 % (12-44); MEAN CORPUSCULAR HEMOGLOBIN 29 pg (25-34); MEAN CORPUSCULAR HGB CONC 32 g/dL (32-36); MEAN CORPUSCULAR VOLUME 89 fL (80-99); MEAN PLATELET VOLUME 9.8 fL (9.0-12.2); MONOCYTES # (AUTO) 0.7 10^3/uL (0.0-1.0); MONOCYTES % (AUTO) 13 % (0-12); NEUTROPHILS # (AUTO) 3.9 10^3/uL (1.8-7.8); NEUTROPHILS % (AUTO) 71 % (42-75); PLATELET COUNT 167 10^3/uL (130-400); WHITE BLOOD COUNT 5.5 10^3/uL (4.3-11.0)
[2020-12-08 10:42] LABS: ALANINE AMINOTRANSFERASE 26 U/L (0-55); ALBUMIN 3.5 GM/DL (3.2-4.5); ALKALINE PHOSPHATASE 277 U/L (40-136); BUN/CREATININE RATIO 28; CALCIUM 9.7 MG/DL (8.5-10.1); CARBON DIOXIDE 23 MMOL/L (21-32); CHLORIDE 104 MMOL/L (98-107); CREATININE SERUM 1.04 MG/DL (0.60-1.30); GFR ESTIMATED > 60; GLUCOSE 130 MG/DL (70-105); POTASSIUM 4.9 MMOL/L (3.6-5.0); SODIUM 134 MMOL/L (135-145); TOTAL PROTEIN 7.6 GM/DL (6.4-8.2)
[2020-12-08 11:26] LABS: MAGNESIUM 1.4 MG/DL (1.6-2.4)
[2020-12-15 10:22] LABS: BASOPHILS % (AUTO) 0 % (0-10); EOSINOPHILS % (AUTO) 0 % (0-10); HEMATOCRIT 31 % (40-54); HEMOGLOBIN 10.1 g/dL (13.3-17.7); LYMPHOCYTES # (AUTO) 0.8 10^3/uL (1.0-4.0); LYMPHOCYTES % (AUTO) 9 % (12-44); MEAN CORPUSCULAR HEMOGLOBIN 29 pg (25-34); MEAN CORPUSCULAR HGB CONC 33 g/dL (32-36); MEAN CORPUSCULAR VOLUME 87 fL (80-99); MEAN PLATELET VOLUME 10.4 fL (9.0-12.2); MONOCYTES # (AUTO) 0.8 10^3/uL (0.0-1.0); MONOCYTES % (AUTO) 10 % (0-12); NEUTROPHILS # (AUTO) 6.3 10^3/uL (1.8-7.8); NEUTROPHILS % (AUTO) 79 % (42-75); PLATELET COUNT 136 10^3/uL (130-400); WHITE BLOOD COUNT 8.1 10^3/uL (4.3-11.0)
[2020-12-15 10:35] LABS: ALANINE AMINOTRANSFERASE 83 U/L (0-55); ALBUMIN 3.2 GM/DL (3.2-4.5); ALKALINE PHOSPHATASE 289 U/L (40-136); BILIRUBIN,TOTAL 0.9 MG/DL (0.1-1.0); BUN/CREATININE RATIO 39; CALCIUM 9.2 MG/DL (8.5-10.1); CARBON DIOXIDE 22 MMOL/L (21-32); CHLORIDE 104 MMOL/L (98-107); CREATININE SERUM 1.02 MG/DL (0.60-1.30); GFR ESTIMATED > 60; GLUCOSE 143 MG/DL (70-105); POTASSIUM 5.3 MMOL/L (3.6-5.0); SODIUM 132 MMOL/L (135-145); TOTAL PROTEIN 7.2 GM/DL (6.4-8.2)
[2020-12-22 10:17] LABS: BASOPHILS % (AUTO) 1 % (0-10); HEMOGLOBIN 8.5 g/dL (13.3-17.7)
[2020-12-22 10:19] LABS: EOSINOPHILS # (AUTO) 0.1 10^3/uL (0.0-0.3); EOSINOPHILS % (AUTO) 2 % (0-10); HEMATOCRIT 26 % (40-54); LYMPHOCYTES # (AUTO) 0.7 10^3/uL (1.0-4.0); LYMPHOCYTES % (AUTO) 26 % (12-44); MEAN CORPUSCULAR HEMOGLOBIN 28 pg (25-34); MEAN CORPUSCULAR HGB CONC 32 g/dL (32-36); MEAN CORPUSCULAR VOLUME 87 fL (80-99); MEAN PLATELET VOLUME 9.6 fL (9.0-12.2); MONOCYTES # (AUTO) 0.3 10^3/uL (0.0-1.0); MONOCYTES % (AUTO) 14 % (0-12); NEUTROPHILS # (AUTO) 1.4 10^3/uL (1.8-7.8); NEUTROPHILS % (AUTO) 57 % (42-75); WHITE BLOOD COUNT 2.5 10^3/uL (4.3-11.0)
[2020-12-22 10:22] LABS: PLATELET COUNT 93 10^3/uL (130-400)
[2020-12-22 10:34] LABS: ALANINE AMINOTRANSFERASE 46 U/L (0-55); ALKALINE PHOSPHATASE 262 U/L (40-136); BILIRUBIN,TOTAL 1.2 MG/DL (0.1-1.0); BUN/CREATININE RATIO 33; CALCIUM 8.5 MG/DL (8.5-10.1); CARBON DIOXIDE 21 MMOL/L (21-32); CHLORIDE 103 MMOL/L (98-107); CREATININE SERUM 1.14 MG/DL (0.60-1.30); GFR ESTIMATED > 60; GLUCOSE 150 MG/DL (70-105); POTASSIUM 5.1 MMOL/L (3.6-5.0); SODIUM 129 MMOL/L (135-145); TOTAL PROTEIN 6.6 GM/DL (6.4-8.2)
[2020-12-29 13:14] LABS: HEMATOCRIT 25 % (40-54)
[2020-12-29 13:16] LABS: BASOPHILS % (AUTO) 1 % (0-10); EOSINOPHILS % (AUTO) 1 % (0-10); HEMOGLOBIN 8.2 g/dL (13.3-17.7); LYMPHOCYTES # (AUTO) 0.6 10^3/uL (1.0-4.0); LYMPHOCYTES % (AUTO) 31 % (12-44); MEAN CORPUSCULAR HEMOGLOBIN 28 pg (25-34); MEAN CORPUSCULAR HGB CONC 32 g/dL (32-36); MEAN CORPUSCULAR VOLUME 88 fL (80-99); MEAN PLATELET VOLUME 9.8 fL (9.0-12.2); MONOCYTES # (AUTO) 0.3 10^3/uL (0.0-1.0); MONOCYTES % (AUTO) 17 % (0-12); NEUTROPHILS # (AUTO) 0.9 10^3/uL (1.8-7.8); NEUTROPHILS % (AUTO) 46 % (42-75); PLATELET COUNT 75 10^3/uL (130-400)
[2020-12-29 13:42] LABS: CREATININE SERUM 1.37 MG/DL (0.60-1.30); POTASSIUM 5.4 MMOL/L (3.6-5.0)
[2021-01-04 10:43] LABS: BASOPHILS % (AUTO) 0 % (0-10); EOSINOPHILS % (AUTO) 0 % (0-10); HEMATOCRIT 27 % (40-54); HEMOGLOBIN 8.5 g/dL (13.3-17.7); LYMPHOCYTES # (AUTO) 0.4 10^3/uL (1.0-4.0); LYMPHOCYTES % (AUTO) 13 % (12-44); MEAN CORPUSCULAR HEMOGLOBIN 29 pg (25-34); MEAN CORPUSCULAR HGB CONC 32 g/dL (32-36); MEAN CORPUSCULAR VOLUME 93 fL (80-99); MEAN PLATELET VOLUME 9.1 fL (9.0-12.2); MONOCYTES # (AUTO) 0.8 10^3/uL (0.0-1.0); MONOCYTES % (AUTO) 24 % (0-12); NEUTROPHILS % (AUTO) 62 % (42-75); PLATELET COUNT 335 10^3/uL (130-400); WHITE BLOOD COUNT 3.3 10^3/uL (4.3-11.0)
[2021-01-04 11:00] LABS: BUN/CREATININE RATIO 18; CARBON DIOXIDE 23 MMOL/L (21-32); CHLORIDE 104 MMOL/L (98-107); CREATININE SERUM 1.08 MG/DL (0.60-1.30); POTASSIUM 5.3 MMOL/L (3.6-5.0); SODIUM 136 MMOL/L (135-145)
[2021-01-04 11:01] LABS: ALANINE AMINOTRANSFERASE 66 U/L (0-55); ALKALINE PHOSPHATASE 379 U/L (40-136); BILIRUBIN,TOTAL 1.6 MG/DL (0.1-1.0); CALCIUM 8.9 MG/DL (8.5-10.1); GFR ESTIMATED > 60; GLUCOSE 183 MG/DL (70-105); MAGNESIUM 1.4 MG/DL (1.6-2.4); TOTAL PROTEIN 6.3 GM/DL (6.4-8.2)
[2021-01-11 10:34] LABS: BASOPHILS # (AUTO) 0.1 10^3/uL (0.0-0.1); BASOPHILS % (AUTO) 1 % (0-10); EOSINOPHILS % (AUTO) 0 % (0-10); HEMATOCRIT 27 % (40-54); LYMPHOCYTES # (AUTO) 0.6 10^3/uL (1.0-4.0); LYMPHOCYTES % (AUTO) 11 % (12-44); MEAN CORPUSCULAR HEMOGLOBIN 30 pg (25-34); MEAN CORPUSCULAR HGB CONC 33 g/dL (32-36); MEAN CORPUSCULAR VOLUME 91 fL (80-99); MONOCYTES # (AUTO) 0.6 10^3/uL (0.0-1.0); MONOCYTES % (AUTO) 11 % (0-12); NEUTROPHILS # (AUTO) 3.2 10^3/uL (1.8-7.8); NEUTROPHILS % (AUTO) 60 % (42-75); PLATELET COUNT 228 10^3/uL (130-400); WHITE BLOOD COUNT 5.4 10^3/uL (4.3-11.0)
[2021-01-11 10:50] LABS: ALANINE AMINOTRANSFERASE 82 U/L (0-55); ALKALINE PHOSPHATASE 346 U/L (40-136); BILIRUBIN,TOTAL 2.3 MG/DL (0.1-1.0); BUN/CREATININE RATIO 27; CALCIUM 9.2 MG/DL (8.5-10.1); CARBON DIOXIDE 22 MMOL/L (21-32); CHLORIDE 103 MMOL/L (98-107); CREATININE SERUM 1.14 MG/DL (0.60-1.30); GFR ESTIMATED > 60; GLUCOSE 252 MG/DL (70-105); POTASSIUM 4.9 MMOL/L (3.6-5.0); SODIUM 134 MMOL/L (135-145); TOTAL PROTEIN 6.7 GM/DL (6.4-8.2)
[2021-01-18 11:00] LABS: BASOPHILS % (AUTO) 1 % (0-10); MONOCYTES # (AUTO) 0.2 10^3/uL (0.0-1.0)
[2021-01-18 11:02] LABS: EOSINOPHILS % (AUTO) 1 % (0-10); HEMATOCRIT 24 % (40-54); HEMOGLOBIN 7.8 g/dL (13.3-17.7); LYMPHOCYTES # (AUTO) 0.5 10^3/uL (1.0-4.0); LYMPHOCYTES % (AUTO) 18 % (12-44); MEAN CORPUSCULAR HEMOGLOBIN 31 pg (25-34); MEAN CORPUSCULAR HGB CONC 33 g/dL (32-36); MEAN CORPUSCULAR VOLUME 93 fL (80-99); MEAN PLATELET VOLUME 11.1 fL (9.0-12.2); MONOCYTES % (AUTO) 9 % (0-12); NEUTROPHILS # (AUTO) 1.8 10^3/uL (1.8-7.8); NEUTROPHILS % (AUTO) 67 % (42-75); PLATELET COUNT 71 10^3/uL (130-400); WHITE BLOOD COUNT 2.7 10^3/uL (4.3-11.0)
[2021-01-18 11:17] LABS: ALBUMIN 2.9 GM/DL (3.2-4.5); BILIRUBIN,TOTAL 2.7 MG/DL (0.1-1.0); CALCIUM 9.3 MG/DL (8.5-10.1); CREATININE SERUM 1.19 MG/DL (0.60-1.30); POTASSIUM 5.2 MMOL/L (3.6-5.0); TOTAL PROTEIN 6.3 GM/DL (6.4-8.2)
[2021-01-25 13:54] LABS: BASOPHILS % (AUTO) 0 % (0-10); EOSINOPHILS % (AUTO) 0 % (0-10); HEMATOCRIT 24 % (40-54); HEMOGLOBIN 7.9 g/dL (13.3-17.7); LYMPHOCYTES # (AUTO) 0.8 10^3/uL (1.0-4.0); LYMPHOCYTES % (AUTO) 24 % (12-44); MEAN CORPUSCULAR HEMOGLOBIN 32 pg (25-34); MEAN CORPUSCULAR HGB CONC 33 g/dL (32-36); MEAN CORPUSCULAR VOLUME 98 fL (80-99); MONOCYTES # (AUTO) 0.7 10^3/uL (0.0-1.0); MONOCYTES % (AUTO) 22 % (0-12); NEUTROPHILS # (AUTO) 1.5 10^3/uL (1.8-7.8); NEUTROPHILS % (AUTO) 46 % (42-75); PLATELET COUNT 68 10^3/uL (130-400); WHITE BLOOD COUNT 3.3 10^3/uL (4.3-11.0)
[2021-01-25 14:08] LABS: ALANINE AMINOTRANSFERASE 49 U/L (0-55); ALBUMIN 2.8 GM/DL (3.2-4.5); ALKALINE PHOSPHATASE 258 U/L (40-136); BILIRUBIN,TOTAL 3.8 MG/DL (0.1-1.0); BUN/CREATININE RATIO 28; CALCIUM 8.9 MG/DL (8.5-10.1); CARBON DIOXIDE 22 MMOL/L (21-32); CHLORIDE 109 MMOL/L (98-107); CREATININE SERUM 1.16 MG/DL (0.60-1.30); GFR ESTIMATED > 60; GLUCOSE 173 MG/DL (70-105); POTASSIUM 4.5 MMOL/L (3.6-5.0); SODIUM 139 MMOL/L (135-145)
[2021-02-07 09:50] LABS: BASOPHILS # (AUTO) 0.1 10^3/uL (0.0-0.1); BASOPHILS % (AUTO) 2 % (0-10); EOSINOPHILS % (AUTO) 1 % (0-10); HEMATOCRIT 30 % (40-54); HEMOGLOBIN 9.6 g/dL (13.3-17.7); LYMPHOCYTES # (AUTO) 0.8 10^3/uL (1.0-4.0); LYMPHOCYTES % (AUTO) 12 % (12-44); MEAN CORPUSCULAR HEMOGLOBIN 34 pg (25-34); MEAN CORPUSCULAR HGB CONC 32 g/dL (32-36); MEAN CORPUSCULAR VOLUME 105 fL (80-99); MEAN PLATELET VOLUME 9.5 fL (9.0-12.2); MONOCYTES # (AUTO) 1.5 10^3/uL (0.0-1.0); MONOCYTES % (AUTO) 22 % (0-12); NEUTROPHILS # (AUTO) 4.1 10^3/uL (1.8-7.8); NEUTROPHILS % (AUTO) 62 % (42-75); PLATELET COUNT 266 10^3/uL (130-400); WHITE BLOOD COUNT 6.6 10^3/uL (4.3-11.0)
[2021-02-07 10:11] LABS: ALANINE AMINOTRANSFERASE 30 U/L (0-55); ALBUMIN 2.8 GM/DL (3.2-4.5); ALKALINE PHOSPHATASE 308 U/L (40-136); BILIRUBIN,TOTAL 4.3 MG/DL (0.1-1.0); BUN/CREATININE RATIO 20; CALCIUM 8.7 MG/DL (8.5-10.1); CARBON DIOXIDE 20 MMOL/L (21-32); CHLORIDE 107 MMOL/L (98-107); CREATININE SERUM 1.06 MG/DL (0.60-1.30); GFR ESTIMATED > 60; GLUCOSE 180 MG/DL (70-105); MAGNESIUM 1.3 MG/DL (1.6-2.4); POTASSIUM 4.8 MMOL/L (3.6-5.0); SODIUM 136 MMOL/L (135-145); TOTAL PROTEIN 6.2 GM/DL (6.4-8.2)
[2021-02-14 09:48] LABS: EOSINOPHILS % (AUTO) 0 % (0-10)
[2021-02-14 09:50] LABS: BASOPHILS # (AUTO) 0.1 10^3/uL (0.0-0.1); BASOPHILS % (AUTO) 1 % (0-10); HEMATOCRIT 28 % (40-54); LYMPHOCYTES # (AUTO) 0.9 10^3/uL (1.0-4.0); LYMPHOCYTES % (AUTO) 13 % (12-44); MEAN CORPUSCULAR HEMOGLOBIN 35 pg (25-34); MEAN CORPUSCULAR HGB CONC 33 g/dL (32-36); MEAN CORPUSCULAR VOLUME 107 fL (80-99); MEAN PLATELET VOLUME 10.8 fL (9.0-12.2); MONOCYTES # (AUTO) 1.1 10^3/uL (0.0-1.0); MONOCYTES % (AUTO) 17 % (0-12); NEUTROPHILS # (AUTO) 3.9 10^3/uL (1.8-7.8); NEUTROPHILS % (AUTO) 62 % (42-75); PLATELET COUNT 108 10^3/uL (130-400); WHITE BLOOD COUNT 6.4 10^3/uL (4.3-11.0)
[2021-02-14 10:09] LABS: BUN/CREATININE RATIO 27; CALCIUM 8.4 MG/DL (8.5-10.1); CARBON DIOXIDE 19 MMOL/L (21-32); CHLORIDE 110 MMOL/L (98-107); CREATININE SERUM 1.11 MG/DL (0.60-1.30); GFR ESTIMATED > 60; GLUCOSE 172 MG/DL (70-105); POTASSIUM 4.2 MMOL/L (3.6-5.0); SODIUM 139 MMOL/L (135-145)
[~2021-02-23] VITALS: Ht 180.3 cm; Wt 82.1 kg
[~2021-02-23 09:43] MED LIST changes: -0.9% SODIUM CHLORIDE PF INJ 20 ML VIAL ONE; +ALTEPLASE 2 MG (CATHFLO) CANCER CENTER IV ONE; +GEMCITABINE HCL 1 GM, GEMCITABINE HCL 500 MG in NS (IVPB) CANCER CENTER 100 ML IV SCH; +GEMCITABINE HCL IV SCH; -HEParin (CENTRAL IV FLUSH) 500 UNIT/5 ML SYR ONE; -LACTATED RINGERS 1,000 ML IV PRN; -LIDOCAINE/EPI 1%-1:100,000 (XYLOCAINE) 20ML ONE; +NIVOLUMAB 480 MG in NS (IVPB) CANCER CENTER 100 ML IV SCH; +NS IV 1000 ML (CANCER CTR) IV SCH; +NS IV SCH; -ONDANSETRON 4 MG/2 ML (SDV) Z0FRAN IVP PRN; -PROPOFOL INJECTION 50 ML IV ONE; -ceFAZolin 2 GM IV Premixed 50 ML IV ONE; -fentaNYL INJ 100 MCG/2 ML AMP IVP ONE; -proPOfol 200 MG/20 ML (DIPRIVAN) VIAL IV ONE
[2021-02-23 10:23] LABS: EOSINOPHILS % (AUTO) 0 % (0-10)
[2021-02-23 10:25] LABS: BASOPHILS % (AUTO) 0 % (0-10); HEMATOCRIT 21 % (40-54); LYMPHOCYTES # (AUTO) 0.5 10^3/uL (1.0-4.0); LYMPHOCYTES % (AUTO) 17 % (12-44); MEAN CORPUSCULAR HEMOGLOBIN 36 pg (25-34); MEAN CORPUSCULAR HGB CONC 34 g/dL (32-36); MEAN CORPUSCULAR VOLUME 108 fL (80-99); MEAN PLATELET VOLUME 13.4 fL (9.0-12.2); MONOCYTES # (AUTO) 0.6 10^3/uL (0.0-1.0); MONOCYTES % (AUTO) 21 % (0-12); NEUTROPHILS # (AUTO) 1.7 10^3/uL (1.8-7.8); NEUTROPHILS % (AUTO) 60 % (42-75); WHITE BLOOD COUNT 2.9 10^3/uL (4.3-11.0)
[2021-02-23 10:32] LABS: PLATELET COUNT 30 10^3/uL (130-400)
[2021-02-23 10:41] LABS: ALBUMIN 2.2 GM/DL (3.2-4.5); CALCIUM 8.7 MG/DL (8.5-10.1); CREATININE SERUM 3.74 MG/DL (0.60-1.30); POTASSIUM 5.8 MMOL/L (3.6-5.0); TOTAL PROTEIN 5.3 GM/DL (6.4-8.2)
[2021-02-24] MEDS ORDERED: IRON15TA3 PO (11:42)
== END 2021-02-27 | disposition home or self-care (01) ==
LOC: ONC 09:43
PROVIDERS: ATTEND Internal Medicine Hematology & Oncology
DX: D50.0 Iron deficiency anemia secondary to blood loss (chronic) (principal); I48.20 Chronic atrial fibrillation, unspecified; K92.2 Gastrointestinal hemorrhage, unspecified; I10 Essential (primary) hypertension; Q27.33 Arteriovenous malformation of digestive system vessel
CPT/HCPCS: 80053; 82728; 85025; G0463; 36415; 36591; 36593; 80048; 82105; 83735; 86301; 96360; 96375; 96413; 96417; 99213

== ENCOUNTER 2021-02-23 12:33 | Inpatient (IN) | payer MEDICARE, OTHER ==
[2021-02-23] VITALS (7 sets, daily range): BP systolic 87–100; BP diastolic 50–66
[~2021-02-23] VITALS: Ht 177.7 cm; Wt 110.5 kg
[~2021-02-23 12:33] MED LIST changes: -ALTEPLASE 2 MG (CATHFLO) CANCER CENTER IV ONE; -GEMCITABINE HCL 1 GM, GEMCITABINE HCL 500 MG in NS (IVPB) CANCER CENTER 100 ML IV SCH; -GEMCITABINE HCL IV SCH; -NIVOLUMAB 480 MG in NS (IVPB) CANCER CENTER 100 ML IV SCH; -NS IV 1000 ML (CANCER CTR) IV SCH; -NS IV SCH
[2021-02-23] MEDS ORDERED: NS IV 1000 ML 1,000 ML ONE (12:43)
[2021-02-23] MEDS ORDERED: NS IV 1000 ML 1,000 ML IV SCH (12:45)
--- NOTE | 2021-02-23 12:56 | ED Cardiac General ---
History of Present Illness General Chief Complaint: Cardiac/General Problems Stated Complaint: L BP Nursing Triage Note: Pt sent to ED from [facility] for low blood pressure. Pt's blood pressure 74/40 at [facility]. Pt reports general overall "not feeling well." Source: patient Exam Limitations: no limitations History of Present Illness Date Seen by Provider: Feb 23, 2021 Time Seen by Provider: 12:51 Initial Comments To ER by wheelchair from the [facility]. He follows with Dr. Ladd for hepatocellular and pancreatic cancer. He is receiving palliative chemotherapy. Last week his hemoglobin was 9 and his creatinine was 1.37. Today after a week of general weakness his BUN is at 113, creatinine is at 3.2, hemoglobin down to 7 and platelets down to 30. He has a history of atrial fibrillation but due to some gastrointestinal bleeding he is oral anticoagulation has been stopped. He denies any pain nausea or vomiting. Due to some erythema over the right fourth knuckle he was started on colchicine recently though they have not noticed much improvement in his suspected gouty symptoms. Timing/Duration: changing over time Severity: moderate Activities at Onset: none NTG SL PARTY PLAN SALES HOST/HOSTESS: No ASA po PARTY PLAN SALES HOST/HOSTESS: No Allergies and Home Medications Allergies Coded Allergies: No Known Drug Allergies (Unverified , 09/03/19) Home Medications Amiodarone HCl 200 Mg Tablet, 100 MG PO BID, (Reported) TAKES OF A 200MG TAB TO EQUAL 100MG TWICE DAILY Furosemide 20 Mg Tablet, 20 MG PO DAILY, (Reported) Lisinopril 10 Mg Tablet, 10 MG PO DAILY, (Reported) Pantoprazole Sodium 40 Mg Tablet.dr, 40 MG PO DAILY, (Reported) Potassium Chloride 10 Meq Tab.er.prt, 10 MEQ PO DAILY, (Reported) Patient Home Medication List Home Medication List Reviewed: Yes Review of Systems Review of Systems Constitutional: see HPI, weakness EENTM: No Symptoms Reported Respiratory: No Symptoms Reported Cardiovascular: No Symptoms Reported Gastrointestinal: No Symptoms Reported Genitourinary: No Symptoms Reported Musculoskeletal: no symptoms reported Skin: no symptoms reported Psychiatric/Neurological: No Symptoms Reported Endocrine: No Symptoms Reported Hematologic/Lymphatic: No Symptoms Reported Past Ctzigri-Iunrnp-Avqzjz Hx Patient Social History Tobacco Use?: No Substance use?: No Alcohol Use?: No Pt feels they are or have been: No Immunizations Up To Date Tetanus Booster (TDap): Unknown Seasonal Allergies Seasonal Allergies: No Past Medical History Surgeries: Yes (r knee, eye sx, cardioversion) Eye Surgery, Joint Replacement, Orthopedic Respiratory: No Currently Using CPAP: No Currently Using BIPAP: No Cardiac: Yes (congestive heart failure) Atrial Fibrillation, Hypertension Neurological: No Genitourinary: No Gastrointestinal: Yes Gastroesophageal Reflux Musculoskeletal: Yes Gout Endocrine: No 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 No Pertinent Family Hx Physical Exam Vital Signs Vital Signs - First Documented 02/23/21 12:33 Temp 35.2 Pulse 103 Resp 18 B/P (MAP) 95/60 (72) Pulse Ox 100 O2 Delivery Room Air Capillary Refill : Less Than 3 Seconds Height, Weight, BMI Height: '" Weight: lbs. oz. kg; 27.00 BMI Method: General Appearance: No Apparent Distress, WD/WN, Other (Jaundiced) HEENT: PERRL/EOMI, TMs Normal Neck: Full Range of Motion, Normal Inspection Respiratory: No Accessory Muscle Use, No Respiratory Distress Cardiovascular: Regular Rate, Rhythm, Normal Peripheral Pulses Gastrointestinal: Normal Bowel Sounds, Non Tender, Soft, Distended; No Tenderness Extremity: Normal Capillary Refill, Normal Inspection Neurologic/Psychiatric: Alert, Oriented x3, Other (Alert and oriented very pleasant. Son at the bedside.) Skin: Normal Color, Warm/Dry Progress/Results/Core Measures Results/Orders My Orders Orders - PEDRO LUIS SALES APRN Ns Iv 1000 Ml (Sodium Chloride 0.9%) (02/23/21 12:45) Ns Iv 1000 Ml (Sodium Chloride 0.9%) (02/23/21 12:43) Vital Signs/I&O 02/23/21 12:33 Temp 35.2 Pulse 103 Resp 18 B/P (MAP) 95/60 (72) Pulse Ox 100 O2 Delivery Room Air Blood Pressure Mean: 72 Departure Communication (Admissions) 1255-I spoke with Dr. Dent, we will admit. Transfuse 1 unit of packed red cells and hydrate. We will have palliative care consult. I will hold his potassium lisinopril and colchicine. I did discuss with the patient if his kidney functions worsening what he wants hemodialysis and he immediately states "no". He is DO NOT RESUSCITATE status after discussion with Dr. Ladd. Impression Primary Impression: Acute kidney injury superimposed on chronic kidney disease Additional Impression: Symptomatic anemia Disposition: ADMITTED INPATIENT Condition: Stable Departure-Patient Inst. Referrals: OSCAR SCHMITT DO (PCP/Family) Primary Care Physician PEDRO LUIS SALES APRN Feb 23, 2021 12:56
[2021-02-23] MEDS ORDERED: ONDANSETRON 4 MG/2 ML (SDV) Z0FRAN IVP PRN (14:30)
[2021-02-23 15:04] LABS: INR 1.6 (0.8-1.4); PROTHROMBIN TIME PATIENT 19.3 SEC (12.2-14.7)
[2021-02-23] MEDS: NS IV 1000 ML 1,000 ML IV SCH (15:05)
[2021-02-23] MEDS ORDERED: SOD POLYSTERENE 15 GM/60 ML (KAYEXALATE) UNIT DOSE PO NR (16:30)
[2021-02-23 16:58] LABS: CLARITY,URINE CLOUDY; GLUCOSE, URINE (UA) TRACE (NEGATIVE); KETONES,URINE TRACE (NEGATIVE); LEUKOCYTE ESTERASE ,URINE 2+ (NEGATIVE); NITRITE,URINE NEGATIVE (NEGATIVE); PROTEIN,URINE TRACE (NEGATIVE)
[2021-02-23 17:03] LABS: BILIRUBIN,URINE 2+ (NEGATIVE); COLOR,URINE DARK YELLOW
[2021-02-23 17:07] LABS: BACTERIA,URINE FEW /HPF; HYALINE CASTS, URINE 25-50 /LPF; SQUAMOUS EPITHELIAL CELL,UR 0-2 /HPF; WBC,URINE 25-50 /HPF
[2021-02-23] MEDS: cefTRIAXone 1,000 MG in WATER (STERILE) FOR INJECTION 10 ML IV SCH (17:22)
[2021-02-23] MEDS: SODIUM BICARBONATE 650 MG TABLET (NON-FORMULARY) PO SCH ×2 (17:22→19:40)
--- NOTE | 2021-02-23 21:47 | History & Physical-Hospitalist ---
History of Present Illness HPI/Chief Complaint Anam Powell is a 76 year old male with PMH hepatocellular carcinoma, pancreatic cancer, HTN, CHF, GERD, Afib, CKD3, who presented after being found to have abnormal labs. He was supposed to undergo chemotherapy at the cancer center today. He had labs done and was found to have an acute kidney injury, anemia, and elevated bilirubin. He reports feeling fatigued. He has had dyspnea on exertion. He denies fevers and chills. He denies cough. He denies trouble breathing. He denies chest pain. He says his abdomen has been swollen. He denies nausea and vomiting. He denies constipation and diarrhea. He denies dysuria, urgency, and frequency. He does not smoke cigarettes. He drinks occasionally and has had some drinks this week. Source: patient, family Exam Limitations: no limitations Date Seen 02/23/21 Time Seen by a Provider: 16:10 Attending Physician Jackie Dent MD PCP Roney Muro DO Referring Physician Date of Admission Feb 23, 2021 at 12:47 Home Medications & Allergies Home Medications Reviewed patient Home Medication Reconciliation performed by pharmacy medication reconciliations hydro plant technician and/or nursing. Patients Allergies have been reviewed. Allergies Allergies Coded Allergies No Known Drug Allergies (Unverified02/23/21) Past Jywmqlo-Qekvzn-Whyofu Hx Patient Social History Tobacco Use?: No Substance use?: No Alcohol Use?: No Pt feels they are or have been: No Immunizations Up To Date Date of Influenza Vaccine: May 05, 2019 First/Initial COVID19 Vaccinat: Y Second COVID19 Vaccination Jaquan: Y Tetanus Booster (TDap): Unknown Seasonal Allergies Seasonal Allergies: No Current Status Advance Directives: No Communicates: Verbally Primary Language: [place] Preferred Spoken Language: [place] Is interpretation needed?: No Implanted or Applied Medical D: Central venous access Past Medical History Surgeries: Eye Surgery, Joint Replacement, Orthopedic Currently Using CPAP: No Currently Using BIPAP: No Atrial Fibrillation, Hypertension Gastroesophageal Reflux Gout Liver, Pancreatic Did You Recieve Any Treatments: No Blood Disorders: No Adverse Reaction/Blood Tranf: No Family Medical History Patient reports no known family medical history. No Pertinent Family Hx Review of Systems Constitutional: weakness EENTM: no symptoms reported Respiratory: dyspnea on exertion Cardiovascular: no symptoms reported Gastrointestinal: No hematemesis; jaundice, loss of appetite; No melena Genitourinary: no symptoms reported Musculoskeletal: no symptoms reported Skin: no symptoms reported Psychiatric/Neurological: No Symptoms Reported Physical Exam Physical Exam Vital Signs Vital Signs - First Documented 02/23/21 12:33 Temp 35.2 Pulse 103 Resp 18 B/P (MAP) 95/60 (72) Pulse Ox 100 O2 Delivery Room Air Capillary Refill : Less Than 3 Seconds Height, Weight, BMI Height: '" Weight: lbs. oz. kg; 27.13 BMI Method: General Appearance: No Apparent Distress, Obese HEENT: PERRL/EOMI, Scleral Icterus (L), Scleral Icterus (R) Neck: Normal Inspection, Supple Respiratory: Lungs Clear, Normal Breath Sounds, No Respiratory Distress Cardiovascular: Regular Rate, Rhythm, No Murmur Gastrointestinal: Normal Bowel Sounds, Non Tender, Soft, Distended Extremity: Normal Inspection, Non Tender, Pedal Edema Neurologic/Psychiatric: Alert, Oriented x3, No Motor/Sensory Deficits, Normal Mood/Affect Skin: Warm/Dry, Jaundice Results Results/Procedures Labs Patient resulted labs reviewed. Imaging: Reviewed Imaging Report Assessment/Plan Admission Diagnosis Acute kidney injury superimposed on chronic kidney disease Admission Status: Inpatient Order (span 2 midnights) Reason for Inpatient Admission: IV fluids, monitoring Assessment and Plan VALERI on CKD Elevated bilirubin Symptomatic anemia Pancytopenia Hepatocellular carcinoma Pancreatic cancer Goals of care discussion Significantly elevated BUN/Cr Started on IV fluids UA concerning for possible UTI Started on Rocephin Hgb 7 Transfuse 1 unit PRBC Does not want dialysis DNR/DNI HTN AFib Hold home meds GERD PPI DVT prophylaxis: held due to thrombocytopenia Diagnosis/Problems Diagnosis/Problems (1) Acute kidney injury superimposed on chronic kidney disease Status: Acute (2) Symptomatic anemia Status: Acute (3) Pancreatic cancer Status: Acute (4) Liver cancer Status: Acute Qualifiers: Liver malignancy type: hepatocellular carcinoma Qualified Codes: C22.0 - Liver cell carcinoma Clinical Quality Measures AMI/AHF: ASA po Prior to arrival: JACKIE Correa MD Feb 23, 2021 21:47
[2021-02-24] MEDS: NS IV 1000 ML 1,000 ML IV SCH ×4 (01:34→21:14)
[2021-02-24 03:59] VITALS: BP 89/55
[2021-02-24 05:15] LABS: BASOPHILS % (AUTO) 0 % (0-10); HEMOGLOBIN 7.3 g/dL (13.3-17.7)
[2021-02-24 05:17] LABS: EOSINOPHILS % (AUTO) 1 % (0-10); HEMATOCRIT 23 % (40-54); LYMPHOCYTES # (AUTO) 0.5 10^3/uL (1.0-4.0); LYMPHOCYTES % (AUTO) 17 % (12-44); MEAN CORPUSCULAR HEMOGLOBIN 34 pg (25-34); MEAN CORPUSCULAR HGB CONC 32 g/dL (32-36); MEAN CORPUSCULAR VOLUME 105 fL (80-99); MEAN PLATELET VOLUME 12.5 fL (9.0-12.2); MONOCYTES # (AUTO) 0.5 10^3/uL (0.0-1.0); MONOCYTES % (AUTO) 19 % (0-12); NEUTROPHILS # (AUTO) 1.6 10^3/uL (1.8-7.8); NEUTROPHILS % (AUTO) 61 % (42-75); WHITE BLOOD COUNT 2.6 10^3/uL (4.3-11.0)
[2021-02-24 05:24] LABS: POTASSIUM 4.8 MMOL/L (3.6-5.0)
[2021-02-24 05:26] LABS: CALCIUM 7.9 MG/DL (8.5-10.1)
[2021-02-24 05:29] LABS: PLATELET COUNT 32 10^3/uL (130-400)
[2021-02-24 05:30] LABS: CREATININE SERUM 3.13 MG/DL (0.60-1.30); PHOSPHORUS 4.4 MG/DL (2.3-4.7)
[2021-02-24 05:33] LABS: MAGNESIUM 1.6 MG/DL (1.6-2.4)
[2021-02-24] MEDS: PANTOPRAZOLE 40 MG (PROTONIX) TAB PO SCH (05:44)
[2021-02-24 08:00] VITALS: BP 105/69
[2021-02-24] MEDS ORDERED: SOD POLYSTERENE 15 GM/60 ML (KAYEXALATE) UNIT DOSE PO ONE (08:00)
[2021-02-24] MEDS: MAGNESIUM 1 GM/100 ML IVPB 100 ML IV SCH ×2 (09:03→11:21)
[2021-02-24] MEDS: SODIUM BICARBONATE 650 MG TABLET (NON-FORMULARY) PO SCH ×4 (09:03→20:55)
[2021-02-24] MEDS ORDERED: IRON15TA3 PO (11:42)
[2021-02-24 12:00] VITALS: BP 90/59
--- NOTE | 2021-02-24 12:36 | Progress Note - Hospitalist ---
Subjective HPI/CC On Admission Date Seen by Provider: Feb 24, 2021 Time Seen by Provider: 09:55 Anam Powell is a 76 year old male with PMH hepatocellular carcinoma, pancreatic cancer, HTN, CHF, GERD, Afib, CKD3, who presented after being found to have abnormal labs. He was supposed to undergo chemotherapy at the cancer center today. He had labs done and was found to have an acute kidney injury, anemia, and elevated bilirubin. He reports feeling fatigued. He has had dyspnea on exertion. He denies fevers and chills. He denies cough. He denies trouble breathing. He denies chest pain. He says his abdomen has been swollen. He denies nausea and vomiting. He denies constipation and diarrhea. He denies dysuria, urgency, and frequency. He does not smoke cigarettes. He drinks occasionally and has had some drinks this week. Subjective/Events-last exam He is feeling about the same today. He has no complaints or concerns. He is not having any pain. Objective Exam Vital Signs Vital Signs Date Time Temp Pulse Resp B/P (MAP) Pulse Ox O2 Delivery O2 Flow Rate FiO2 02/24/21 12:00 36.5 89 16 90/59 (69) 98 Room Air Capillary Refill : Less Than 3 Seconds General Appearance: No Apparent Distress, Chronically ill, Obese Respiratory: Lungs Clear, Normal Breath Sounds, No Respiratory Distress Cardiovascular: Regular Rate, Rhythm, No Murmur Gastrointestinal: Normal Bowel Sounds, Non Tender, Soft, Distended Extremity: Normal Inspection, Non Tender, Pedal Edema Neurologic/Psychiatric: Alert, Oriented x3, Other (Flat affect) Skin: Warm/Dry, Jaundice Results/Procedures Lab Laboratory Tests 02/24/21 05:02 Patient resulted labs reviewed. Imaging: Reviewed Imaging Report Assessment/Plan Assessment and Plan Assess & Plan/Chief Complaint VALERI on CKD Elevated bilirubin Symptomatic anemia Pancytopenia Hepatocellular carcinoma Pancreatic cancer Goals of care discussion Significantly elevated BUN/Cr, stable/slightly improved Continue gentle IV fluids UA concerning for possible UTI Continue Rocephin Await urine culture Hgb 7.3 post-transfusion s/p 1 unit PRBC Does not want dialysis DNR/DNI HTN AFib Hold home meds GERD PPI DVT prophylaxis: held due to thrombocytopenia Critical Care Critically Ill Patient Diagnosis/Problems Diagnosis/Problems (1) Acute kidney injury superimposed on chronic kidney disease Status: Acute (2) Symptomatic anemia Status: Acute (3) Pancreatic cancer Status: Acute (4) Liver cancer Status: Acute Qualifiers: Liver malignancy type: hepatocellular carcinoma Qualified Codes: C22.0 - Liver cell carcinoma Clinical Quality Measures AMI/AHF: ASA po Prior to arrival: JACKIE Correa MD Feb 24, 2021 12:36
[2021-02-24 15:25] VITALS: BP 94/63
--- NOTE | 2021-02-24 15:27 | Physician Query Clarification ---
Physician Query-General Query to Physician: The medical record reflects the following clinical evidence: Risk Factors: Hepatocellular carcinoma and Pancreatic Cancer, Diagnosed approx. 3 months ago, with port a cath placement on 12/01/2020. Drinks occasionally Clinical Indicators: Admission Labs: WBC 2.6, RBC 2.17, HGB 7.3, Platelets 32, Was due for chemo on day of admission but was not able to receive it. Treatment: IVF's, Lab monitoring, holding chemo for now, 1 unit LR PRBC's 1. Antineoplastic chemotherapy induced pancytopenia, present on admission 2. Other explanation of clinical findings 3. Unable to determine (no explanation for clinical findings) Please clarify and document your clinical opinion in the progress notes and discharge summary including the definitive and/or presumptive diagnosis, (suspected or probable), related to the above clinical findings. Please include clinical findings supporting your diagnosis. Ni Devlin MSN, RN [phone] [email or web address] PHYSICIAN RESPONSE: Based on the clinical findings in the record, please respond to the query above on this document as an addendum. Physician Response: Physician Response 1 If you have questions please contact: Tax Senior Associate: Ext: Thank you for your time and cooperation. Clinical Captain'S Assistant/Tax Senior Associate This is a permanent part of the medical record NI DEVLIN Feb 24, 2021 15:27 JACKIE GARCIA MD Feb 28, 2021 10:36
[2021-02-24] MEDS: cefTRIAXone 1,000 MG in WATER (STERILE) FOR INJECTION 10 ML IV SCH (15:43)
[2021-02-24 19:55] VITALS: BP 122/82
[2021-02-25] VITALS (7 sets, daily range): BP systolic 84–119; BP diastolic 56–71
[2021-02-25] MEDS: PANTOPRAZOLE 40 MG (PROTONIX) TAB PO SCH (05:44)
[2021-02-25 06:48] LABS: BASOPHILS % (AUTO) 0 % (0-10); EOSINOPHILS % (AUTO) 1 % (0-10); HEMATOCRIT 23 % (40-54); HEMOGLOBIN 7.6 g/dL (13.3-17.7); LYMPHOCYTES # (AUTO) 0.4 10^3/uL (1.0-4.0); LYMPHOCYTES % (AUTO) 19 % (12-44); MEAN CORPUSCULAR HEMOGLOBIN 34 pg (25-34); MEAN CORPUSCULAR HGB CONC 34 g/dL (32-36); MEAN CORPUSCULAR VOLUME 101 fL (80-99); MONOCYTES # (AUTO) 0.4 10^3/uL (0.0-1.0); MONOCYTES % (AUTO) 17 % (0-12); NEUTROPHILS # (AUTO) 1.4 10^3/uL (1.8-7.8); NEUTROPHILS % (AUTO) 61 % (42-75); PLATELET COUNT 59 10^3/uL (130-400); WHITE BLOOD COUNT 2.3 10^3/uL (4.3-11.0)
[2021-02-25 06:57] LABS: ALBUMIN 2.1 GM/DL (3.2-4.5)
[2021-02-25 06:58] LABS: POTASSIUM 4.1 MMOL/L (3.6-5.0)
[2021-02-25 07:00] LABS: TOTAL PROTEIN 5.1 GM/DL (6.4-8.2)
[2021-02-25 07:01] LABS: INR 1.5 (0.8-1.4); PROTHROMBIN TIME PATIENT 18.9 SEC (12.2-14.7)
[2021-02-25 08:00] LABS: BILIRUBIN,TOTAL 11.9 MG/DL (0.1-1.0)
--- NOTE | 2021-02-25 08:52 | Progress Note - Hospitalist ---
Subjective HPI/CC On Admission Date Seen by Provider: Feb 25, 2021 Time Seen by Provider: 07:20 Anam Powell is a 76 year old male with PMH hepatocellular carcinoma, pancreatic cancer, HTN, CHF, GERD, Afib, CKD3, who presented after being found to have abnormal labs. He was supposed to undergo chemotherapy at the cancer center today. He had labs done and was found to have an acute kidney injury, anemia, and elevated bilirubin. He reports feeling fatigued. He has had dyspnea on exertion. He denies fevers and chills. He denies cough. He denies trouble breathing. He denies chest pain. He says his abdomen has been swollen. He denies nausea and vomiting. He denies constipation and diarrhea. He denies dysuria, urgency, and frequency. He does not smoke cigarettes. He drinks occasionally and has had some drinks this week. Subjective/Events-last exam He is feeling about the same. He has no complaints or concerns. He denies any pain. He has been able to eat and drink. Objective Exam Vital Signs Vital Signs Date Time Temp Pulse Resp B/P (MAP) Pulse Ox O2 Delivery O2 Flow Rate FiO2 02/25/21 08:26 36.4 114 22 94/58 (70) 100 Room Air Capillary Refill : Less Than 3 Seconds General Appearance: No Apparent Distress, Chronically ill, Obese Respiratory: Lungs Clear, Normal Breath Sounds, No Respiratory Distress Cardiovascular: Regular Rate, Rhythm, No Edema, No Murmur Gastrointestinal: Normal Bowel Sounds, Non Tender, Soft, Distended Extremity: Normal Inspection, Swelling Neurologic/Psychiatric: Alert, Oriented x3, Depressed Affect, Motor Weakness Skin: Warm/Dry, Jaundice Results/Procedures Lab Laboratory Tests 02/25/21 06:13 Patient resulted labs reviewed. Imaging: Reviewed Imaging Report Assessment/Plan Assessment and Plan Assess & Plan/Chief Complaint VALERI on CKD Elevated bilirubin Symptomatic anemia Pancytopenia Hepatocellular carcinoma Pancreatic cancer Goals of care discussion Significantly elevated BUN/Cr, stable/slightly improved Continue gentle IV fluids UA concerning for possible UTI Continue Rocephin Await urine culture Hemoglobin improving Platelets improving s/p 1 unit PRBC Does not want dialysis DNR/DNI HTN AFib Hold home meds GERD PPI DVT prophylaxis: held due to thrombocytopenia Critical Care Critically Ill Patient Diagnosis/Problems Diagnosis/Problems (1) Acute kidney injury superimposed on chronic kidney disease Status: Acute (2) Symptomatic anemia Status: Acute (3) Pancreatic cancer Status: Acute (4) Liver cancer Status: Acute Qualifiers: Liver malignancy type: hepatocellular carcinoma Qualified Codes: C22.0 - Liver cell carcinoma Clinical Quality Measures AMI/AHF: ASA po Prior to arrival: JACKIE Correa MD Feb 25, 2021 08:51
[2021-02-25] MEDS: SODIUM BICARBONATE 650 MG TABLET (NON-FORMULARY) PO SCH ×4 (09:04→20:41)
--- NOTE | 2021-02-25 10:32 | Physical Therapy Evaluation ---
PT Evaluation-General Medical Diagnosis Admission Date Feb 23, 2021 at 12:47 Medical Diagnosis: abnormal labs Onset Date: Feb 24, 2021 Therapy Diagnosis Therapy Diagnosis: Gait deficit Precautions Precautions/Isolations: Fall Prevention, Standard Precautions Referral Physician: Dr. Dent Medical History Pertinent Medical History: Atrial Fib, HTN Current History hepatocellular carcinoma, pancreatic cancer, HTN, CHF, GERD, Afib, CKD3, Reviewed History: Yes Social History Home: Single Level Current Living Status: Alone Entry Into Home: Stairs With Railing PT Steps Into Home: 5 PT Steps Inside Home: 0 Patient lives alone in a single level home with 5 steps to enter and handrail on the right ascending. Prior Prior Level of Function SCALE: Activities may be completed with or without assistive devices. 1-Jwwdkfeixd-gdwluhy completes the activity by him/herself with no assistance from a helper. 5-Set-up or Clean-up Assistance-helper sets up or cleans up; patient completes activity. [place] assists only prior to or following the activity. 4-Supervision or Touching Assistance-helper provides verbal cues and/or touching/steadying and/or contact guard assistance as patient completes activity. Assistance may be provided throughout the activity or intermittently. 3-Partial/Moderate Assistance-helper does LESS THAN HALF the effort. [place] lifts, holds or supports trunk or limbs, but provides less than half the effort. 2-Substantial/Maximal Assistance-helper does MORE THAN HALF the effort. [place] lifts or holds trunk or limbs and provides more than half the effort. 8-Bccztwyxg-llioqn does ALL the effort. Patient does none of the effort to complete the activity. Or, the assistance of 2 or more helpers is required for the patient to complete the activity. If activity was not attempted, code reason: 7-Patient Refused. 9-Not Applicable-not attempted and the patient did not perform the activity before the current illness, exacerbation or injury. 10-Not Attempted due to Environmental Limitations-(lack of equipment, weather restraints, etc.). 88-Not Attempted due to Medical Conditions or Safety Concerns. Bed Mobility: 6 Transfers (B,C,W/C): 6 Gait: 6 Stairs: 6 Wheelchair Mobility: 88 Indoor Mobility (Ambulation): Independent Stairs: Independent Prior Devices Use: Other-see list below Prior Device Use: Cane PT Evaluation-Current Subjective Patient sitting in chair with family in the room upon PT arrival, agreeable to treatment. Patient currently rates pain at 0/10, however notes upon standing he does experience LBP. Pain Numeric Pain Scale: 0-No Pain Pt/Family Goals Return home. Objective Patient Orientation: Person, Place, Time, Situation Attachments: IV Integumentary/Posture Bowel Incontinence: No Bladder Incontinence: No Neuromuscular (Tone, Coordination, Reflexes) Intact and symmetrical bilaterally Sensory Vision: Functional Hearing: Functional Sensation Right Lower Extremit: Intact Sensation Left Lower Extremity: Intact Transfers Roll Left to Right (QC): 3 Sit to Lying (QC): 3 Lying to Sitting/Side of Bed(Q: 3 Sit to Stand (QC): 3 Chair/Vvh-jg-Qnvrw Xfer(QC): 4 Toilet Transfer (QC): 4 Car Transfer (QC): 88 Gait Does the Patient Walk?: Yes Mode of Locomotion: Walk Walk 10 feet (QC): 4 Walk 50 ft with 2 Turns(QC): 4 Walk 150 ft (QC): 3 Walking 10ft/uneven surface-QC: 2 Distance: 100 feet Gait Assistive Device: FWW Comments/Gait Description Patient ambulates with forward trunk posture, with rounded shoulders, head down and fatigues quickly. Wheelchair Training Does the Pt Use a Wheelchair?: No Wheel 50 ft with 2 turns (QC): 88 Wheel 150 ft (QC): 88 Stairs #of Steps: 1 1 Step (curb) (QC): 1 4 Steps (QC): 1 12 Steps (QC): 1 Balance Sitting Static: Fair Sitting Dynamic: Fair Standing Static: Poor Standing Dynamic: Poor Picking up an Object (QC): 4 Assessment/Needs Patient demonstrates decreased core and LE strength, decreased tolerance to activity, decreased balance, gait deficit, fall risk, decline in function. Patient demonstrates good potential to improve upon the above listed deficits with skilled Physical Therapy intervention. Rehab Potential: Fair PT Short Term Goals Short Term Goals Time Frame: Mar 11, 2021 Roll Left & Right: 4 Sit to lyin Lying to sitting on side of be: 4 Sit to stand: 5 Chair/lyd-aj-uxntw transfer: 5 Toilet transfer: 5 Car transfer: 4 Walk 10 feet: 5 Walk 50 feet with two turns: 5 Walk 150 feet: 4 Walking 10ft on uneven surface: 4 1 step (curb): 3 4 steps: 3 12 steps: 3 Picking up objects: 4 Wheel 50ft w/2 turns: 88 Wheel 150 feet: 88 PT Group Home Goals Food Safety Scientist Goals PT Food Safety Scientist Goals Time Frame: Apr 01, 2021 Roll Left & Right (QC): 6 Sit to Lying (QC): 6 Lying-Sitting on Side/Bed(QC): 6 Sit to Stand (QC): 6 Chair/Ttx-bf-Hpltd Xfer(QC): 6 Toilet Transfer (QC): 6 Car Transfer (QC): 6 Does the Patient Walk: Yes Walk 10 feet (QC): 6 Walk 50ft with 2 Turns (QC): 6 Walk 150 ft (QC): 6 Walking 10ft on Uneven Surface: 6 1 Step (curb) (QC): 6 4 Steps (QC): 6 12 Steps (QC): 5 Picking up an Object (QC): 6 Does the Pt use WC or Scooter?: No Wheel 50 feet with 2 turns (QC: 88 Type: Manual Wheel 150 feet: 88 Type: Manual PT Plan Problem List Problem List: Activity Tolerance, Functional Strength, Safety, Balance, Gait, Transfer, Bed Mobility Treatment/Plan Treatment Plan: Continue Plan of Care Treatment Plan: Bed Mobility, Education, Functional Activity Stephon, Functional Strength, Group Therapy, Gait, Safety, Therapeutic Exercise, Transfers Treatment Duration: Apr 29, 2021 Frequency: 6 times per week Estimated Hrs Per Day: .25 hour per day Safety Risks/Education Patient Education: Gait Training, Transfer Techniques Teaching Recipient: Patient, Family Teaching Methods: Demonstration, Discussion Response to Teaching: Verbalize Understanding, Return Demonstration Discharge Recommendations Plan Patient will be seen daily for treatment consisting of core and LE strengthening, gait training, therapeutic activity, balance training, w/c training, manual therapy. Therapy Discharge Recommendati: Home & Family Equpiment Recommendations-D/C: Front Wheeled Walker Target Placement Home Time/GCodes Time In: 1012 Time Out: 1042 Total Billed Treatment Time: 30 Total Billed Treatment Visit, brady Canela JOHN A PT Feb 25, 2021 10:32
--- NOTE | 2021-02-25 11:21 | Occupational Therapy Eval ---
OT Evaluation-General/PLF Medical Diagnosis Admission Date Feb 23, 2021 at 12:47 Medical Diagnosis: cancer Onset Date: Feb 23, 2021 Therapy Diagnosis Therapy Diagnosis: decreased ADL status Precautions Precautions/Isolations: Fall Prevention, Standard Precautions Referral Physician: Dr. Dent Referral Reason: Evaluation/Treatment Medical History Pertinent Medical History: Atrial Fib, HTN Additional Medical History CHF, GERD, CKD3, pancreatic cancer, hepatocellular carcinoma, gout Current History pt's labs showed VALERI, anemia, elevated bilirubin. dyspnea upon exertion Social History Home: Single Level Current Living Status: Alone Entry Into Home: Stairs With Railing Steps Into Home: 5 Steps Inside Home: 0 ADL-Prior Level of Function SCALE: Activities may be completed with or without assistive devices. 8-Dvzjavjkam-dtttpkc completes the activity by him/herself with no assistance from a helper. 5-Set-up or Clean-up Assistance-helper sets up or cleans up; patient completes activity. [place] assists only prior to or following the activity. 4-Supervision or Touching Assistance-helper provides verbal cues and/or touching/steadying and/or contact guard assistance as patient completes activity. Assistance may be provided throughout the activity or intermittently. 3-Partial/Moderate Assistance-helper does LESS THAN HALF the effort. [place] lifts, holds or supports trunk or limbs, but provides less than half the effort. 2-Substantial/Maximal Assistance-helper does MORE THAN HALF the effort. [place] lifts or holds trunk or limbs and provides more than half the effort. 2-Rhkqomlfe-fgklsm does ALL the effort. Patient does none of the effort to complete the activity. Or, the assistance of 2 or more helpers is required for the patient to complete the activity. If activity was not attempted, code reason: 7-Patient Refused. 9-Not Applicable-not attempted and the patient did not perform the activity before the current illness, exacerbation or injury. 10-Not Attempted due to Environmental Limitations-(lack of equipment, weather restraints, etc.). 88-Not Attempted due to Medical Conditions or Safety Concerns. ADL PLOF Comments Pt reports IND with ADLs and functional mobility, using cane. Self Care: Independent Functional Cognition: Independent DME/Equipment: Shower, Tub/Shower DME/Equipment Comments walker OT Current Status Subjective Pt laying in bed, 2 visitors present. Pt agreeable to OT evaluation. Mental Status/Objective Patient Orientation: Person, Place, Situation Attachments: IV Current Glasses/Contacts: Yes Hand Dominance: Right ADL-Treatment Eating (QC): 6 (Per pt report) Oral Hygiene (QC): 5 (pt already completed today, based on clincial judgment, set up) Shower/Bathe Self (QC): 7 Upper Body Dressing (QC): 7 Lower Body Dressing (QC): 7 On/Off Footwear (QC): 7 Toileting Hygiene (QC): 4 (based on pt report, pt able to manage clothing and hyigne. Per clincial judgement CGA-SBA with task.) Other Treatments Pt laying in bed, agreeable to OT evaluation and tx. OT educated pt on purpose and benefit of OT, he verbalized understanding. Pt provided information about PLOF and home set up and participated in UE screen. Pt declines ADLs at this time, as he does not need to go to the bathroom, does not wish to shower, and he has already completed oral care, face washing, and hair brushing with set up assist. OT educated pt on OT POC, and educated pt on purpose and benefit of UE exercises, demonstrating shoulder flexion, elbow flexion and elbow extension. Pt instructed to complete exercises throughout the day. Pt declines further tx as he would like to rest. Post tx, pt laying in bed, call light in reach and all needs met. Education OT Patient Education: Correct positioning, Home exercise program, Modified ADL techniques, Progress toward Goal/Update tx plan, Purpose of tx/functional activities, Rehab process Teaching Recipient: Patient Teaching Methods: Discussion Response to Teaching: Verbalize Understanding OT Mortgage Counselor Goals Mortgage Counselor Goals Time Frame: Mar 04, 2021 Eating (QC): 6 Oral Hygiene (QC): 6 Toileting Hygiene (QC): 6 Shower/Bathe Self (QC): 6 Upper Body Dressing (QC): 6 Lower Body Dressing (QC): 6 On/Off Footwear (QC): 6 Additional Goals: 1-Demonstrate ADL Tasks, 2-Verbalize Understanding, 3-ImproveStrength/Stephon 1=Demonstrate adherence to instructed precautions during ADL tasks. 2=Patient will verbalize/demonstrate understanding of assistive devices/modifications for ADL. 3=Patient will improve strength/tolerance for activity to enable patient to perform ADL's. OT Education/Plan Problem List/Assessment Assessment: Decreased Activ Tolerance, Decreased UE Strength, Impaired I ADL's, Impaired Self-Care Skills Discharge Recommendations Plan/Recommendations: Continue POC Treatment Plan/Plan of Care Patient would benefit from OT for education, treatment and training to promote independence in ADL's, mobility, safety and/or upper extremity function for ADL's. Plan of Care: ADL Retraining, Functional Mobility, UE Funct Exercise/Act Treatment Duration: Mar 04, 2021 Frequency: 5 times per week Estimated Hrs Per Day: .25 hour per day Agreement: Yes Rehab Potential: Fair Time/GCodes Start Time: 10:53 Stop Time: 11:03 Total Time Billed (hr/min): 10 Billed Treatment Time 1, ELI AVILA OT Feb 25, 2021 11:21
[2021-02-25] MEDS: NS IV 1000 ML 1,000 ML IV SCH (12:36)
[2021-02-25] MEDS: cefTRIAXone 1,000 MG in WATER (STERILE) FOR INJECTION 10 ML IV SCH (17:36)
[2021-02-26] VITALS (8 sets, daily range): BP systolic 84–117; BP diastolic 48–61
[2021-02-26] MEDS: NS IV 1000 ML 1,000 ML IV SCH ×2 (04:43→17:44)
[2021-02-26] MEDS: PANTOPRAZOLE 40 MG (PROTONIX) TAB PO SCH (06:48)
[2021-02-26 09:14] LABS: HEMATOCRIT 22 % (40-54); LYMPHOCYTES % (AUTO) 17 % (12-44)
[2021-02-26 09:16] LABS: BASOPHILS % (AUTO) 0 % (0-10); EOSINOPHILS % (AUTO) 0 % (0-10); HEMOGLOBIN 7.2 g/dL (13.3-17.7); LYMPHOCYTES # (AUTO) 0.5 10^3/uL (1.0-4.0); MEAN CORPUSCULAR HEMOGLOBIN 34 pg (25-34); MEAN CORPUSCULAR HGB CONC 33 g/dL (32-36); MEAN CORPUSCULAR VOLUME 101 fL (80-99); MEAN PLATELET VOLUME 12.5 fL (9.0-12.2); MONOCYTES # (AUTO) 0.7 10^3/uL (0.0-1.0); MONOCYTES % (AUTO) 23 % (0-12); NEUTROPHILS # (AUTO) 1.8 10^3/uL (1.8-7.8); NEUTROPHILS % (AUTO) 58 % (42-75); PLATELET COUNT 110 10^3/uL (130-400); WHITE BLOOD COUNT 3.1 10^3/uL (4.3-11.0)
[2021-02-26 09:26] LABS: ALBUMIN 1.9 GM/DL (3.2-4.5); POTASSIUM 4.1 MMOL/L (3.6-5.0)
[2021-02-26 09:28] LABS: TOTAL PROTEIN 4.7 GM/DL (6.4-8.2)
[2021-02-26 09:32] LABS: CREATININE SERUM 2.81 MG/DL (0.60-1.30)
[2021-02-26] MEDS ORDERED: BISACODYL 10 MG SUPP (DULCOLAX) PR PRN (09:45)
[2021-02-26] MEDS ORDERED: polyethylene glycoL POWDER 17 GM (MIRALAX) PACK PO PRN (09:45)
[2021-02-26] MEDS ORDERED: ANTACID SUSP 30 ML UDC (MYLANTA) PO PRN (09:45)
[2021-02-26] MEDS ORDERED: MELATONIN 3 MG TABLET PO PRN (09:45)
[2021-02-26] MEDS ORDERED: ACETAMINOPHEN 325 MG TABLET PO PRN (09:45)
[2021-02-26] MEDS ORDERED: ONDANSETRON 4 MG (ZOFRAN) ORAL DISSOLVE TAB PO PRN (09:45)
[2021-02-26] MEDS: LOPERAMIDE 2 MG (IMODIUM) TABLET PO PRN ×2 (10:02→17:44)
[2021-02-26] MEDS: ENOXAPARIN 30 MG/0.3 ML (LOVENOX) SYR SC SCH (10:04)
--- NOTE | 2021-02-26 11:08 | Progress Note - Hospitalist ---
Subjective HPI/CC On Admission Date Seen by Provider: Feb 26, 2021 Time Seen by Provider: 09:45 nAam Powell is a 76 year old male with PMH hepatocellular carcinoma, pancreatic cancer, HTN, CHF, GERD, Afib, CKD3, who presented after being found to have abnormal labs. He was supposed to undergo chemotherapy at the cancer center today. He had labs done and was found to have an acute kidney injury, anemia, and elevated bilirubin. He reports feeling fatigued. He has had dyspnea on exertion. He denies fevers and chills. He denies cough. He denies trouble breathing. He denies chest pain. He says his abdomen has been swollen. He denies nausea and vomiting. He denies constipation and diarrhea. He denies dysuria, urgency, and frequency. He does not smoke cigarettes. He drinks occasionally and has had some drinks this week. Subjective/Events-last exam He is feeling about the same. He has been having diarrhea. He denies blood in the stools. He is not having any abdominal pain. He has been eating and dri nking. Objective Exam Vital Signs Vital Signs Date Time Temp Pulse Resp B/P (MAP) Pulse Ox O2 Delivery O2 Flow Rate FiO2 02/26/21 08:43 36.4 107 16 91/53 (66) 99 Room Air Capillary Refill : Less Than 3 Seconds General Appearance: No Apparent Distress, Chronically ill, Obese Respiratory: Lungs Clear, Normal Breath Sounds, No Respiratory Distress Cardiovascular: Regular Rate, Rhythm, No Murmur Gastrointestinal: Normal Bowel Sounds, Non Tender, Soft, Distended Extremity: Normal Inspection, Swelling Neurologic/Psychiatric: Alert, Oriented x3, Depressed Affect, Motor Weakness Skin: Warm/Dry, Jaundice Results/Procedures Lab Laboratory Tests 02/26/21 08:38 02/26/21 08:48 Patient resulted labs reviewed. Imaging: Reviewed Imaging Report Assessment/Plan Assessment and Plan Assess & Plan/Chief Complaint VALERI on CKD Elevated bilirubin Symptomatic anemia Pancytopenia Hepatocellular carcinoma Pancreatic cancer Goals of care discussion Poor prognosis Significantly elevated BUN/Cr, stable/slightly improved Continue gentle IV fluids Urine culture with Enterococcus faecalis Transition to Levaquin Hemoglobin stable Platelets improving s/p 1 unit PRBC Does not want dialysis DNR/DNI Discussed poor prognosis, may be unable to undergo further chemotherapy, discussed palliative care/hospice Palliative care consulted, appreciate assistance Consult Dr. Zayas, oncology, tomorrow morning HTN AFib Hold home meds GERD PPI DVT prophylaxis: Lovenox Critical Care Critically Ill Patient Diagnosis/Problems Diagnosis/Problems (1) Acute kidney injury superimposed on chronic kidney disease Status: Acute (2) Symptomatic anemia Status: Acute (3) Pancreatic cancer Status: Acute (4) Liver cancer Status: Acute Qualifiers: Liver malignancy type: hepatocellular carcinoma Qualified Codes: C22.0 - Liver cell carcinoma (5) Elevated bilirubin Status: Acute (6) Poor prognosis Status: Acute (7) Goals of care, counseling/discussion Status: Acute (8) UTI (urinary tract infection) Status: Acute Qualifiers: Urinary tract infection type: acute cystitis Hematuria presence: without hematuria Qualified Codes: N30.00 - Acute cystitis without hematuria Clinical Quality Measures AMI/AHF: ASA po Prior to arrival: JACKIE Correa MD Feb 26, 2021 11:08
[2021-02-26] MEDS: SODIUM BICARBONATE 650 MG TABLET (NON-FORMULARY) PO SCH ×3 (13:35→21:44)
[2021-02-26] MEDS: DOCUSATE SODIUM 100 MG (COLACE) CAP PO SCH (21:22)
[2021-02-26] MEDS: SENNOSIDES 8.6 MG (SENOKOT) TAB PO SCH (21:22)
[2021-02-27 04:00] VITALS: BP 98/51
[2021-02-27] MEDS: PANTOPRAZOLE 40 MG (PROTONIX) TAB PO SCH (06:42)
[2021-02-27 06:49] LABS: BASOPHILS % (AUTO) 0 % (0-10); EOSINOPHILS % (AUTO) 1 % (0-10); HEMATOCRIT 21 % (40-54); HEMOGLOBIN 7.4 g/dL (13.3-17.7); LYMPHOCYTES # (AUTO) 0.6 10^3/uL (1.0-4.0); LYMPHOCYTES % (AUTO) 21 % (12-44); MEAN CORPUSCULAR HEMOGLOBIN 35 pg (25-34); MEAN CORPUSCULAR HGB CONC 35 g/dL (32-36); MEAN CORPUSCULAR VOLUME 101 fL (80-99); MEAN PLATELET VOLUME 11.9 fL (9.0-12.2); MONOCYTES # (AUTO) 0.7 10^3/uL (0.0-1.0); MONOCYTES % (AUTO) 24 % (0-12); NEUTROPHILS # (AUTO) 1.4 10^3/uL (1.8-7.8); NEUTROPHILS % (AUTO) 47 % (42-75); PLATELET COUNT 153 10^3/uL (130-400)
[2021-02-27 06:59] LABS: ALBUMIN 1.9 GM/DL (3.2-4.5); POTASSIUM 3.8 MMOL/L (3.6-5.0)
[2021-02-27 07:00] LABS: CALCIUM 7.9 MG/DL (8.5-10.1)
[2021-02-27 07:02] LABS: TOTAL PROTEIN 4.6 GM/DL (6.4-8.2)
[2021-02-27 07:05] LABS: CREATININE SERUM 2.82 MG/DL (0.60-1.30)
[2021-02-27 07:19] LABS: BILIRUBIN,TOTAL 12.7 MG/DL (0.1-1.0)
[2021-02-27] MEDS: SENNOSIDES 8.6 MG (SENOKOT) TAB PO SCH ×2 (07:35→20:55)
[2021-02-27] MEDS: DOCUSATE SODIUM 100 MG (COLACE) CAP PO SCH ×2 (07:35→22:21)
[2021-02-27 07:56] VITALS: BP 93/50
[2021-02-27] MEDS: SODIUM BICARBONATE 650 MG TABLET (NON-FORMULARY) PO SCH ×4 (08:26→20:58)
[2021-02-27] MEDS ORDERED: PHARMACY TO DOSE SQ SCH (09:00)
[2021-02-27] MEDS ORDERED: fentaNYL INJ 100 MCG/2 ML AMP ONE (09:51)
[2021-02-27] MEDS: fentaNYL INJ 100 MCG/2 ML AMP IVP PRN ×2 (09:55→16:53)
[2021-02-27] MEDS: ENOXAPARIN 30 MG/0.3 ML (LOVENOX) SYR SC SCH (10:26)
--- NOTE | 2021-02-27 10:27 | Occ Therapy Progress Note ---
Therapy Progress Note Pt AxO, family present at bedside. Pt expresses he just received pain medication and would like to wait until after pain meds set in 2* increased pain in back and denial of OOB at this time. OT to check back in at next available date/ time. 1, refusal. RUPAL HART OTR Feb 27, 2021 10:27
[2021-02-27 11:41] VITALS: BP 124/62
[2021-02-27] MEDS: ONDANSETRON 4 MG/2 ML (SDV) Z0FRAN IV PRN ×2 (11:51→17:31)
[2021-02-27] MEDS: NS IV 1000 ML 1,000 ML IV SCH (11:54)
--- NOTE | 2021-02-27 13:40 | Progress Note - Hospitalist ---
Subjective HPI/CC On Admission Date Seen by Provider: Feb 27, 2021 Time Seen by Provider: 13:31 Anam Powell is a 76 year old male with PMH hepatocellular carcinoma, pancreatic cancer, HTN, CHF, GERD, Afib, CKD3, who presented after being found to have abnormal labs. He was supposed to undergo chemotherapy at the cancer center today. He had labs done and was found to have an acute kidney injury, anemia, and elevated bilirubin. He reports feeling fatigued. He has had dyspnea on exertion. He denies fevers and chills. He denies cough. He denies trouble breathing. He denies chest pain. He says his abdomen has been swollen. He denies nausea and vomiting. He denies constipation and diarrhea. He denies dysuria, urgency, and frequency. He does not smoke cigarettes. He drinks occasionally and has had some drinks this week. Subjective/Events-last exam pt reports feeling about the same today but having back pain. Discussed his persistently poor renal function and that I am unsure if he would be able to tolerate anymore chemotherapy for his cancer at this point. He states that he is not interested in chemotherapy or dialysis. We discussed hospice and at first he was unsure if he wanted this but was open to hearing more. Objective Exam Vital Signs Vital Signs Date Time Temp Pulse Resp B/P (MAP) Pulse Ox O2 Delivery O2 Flow Rate FiO2 02/27/21 11:41 35.7 98 18 124/62 (82) 99 Room Air Capillary Refill : Less Than 3 Seconds General Appearance: No Apparent Distress, Chronically ill Respiratory: Lungs Clear, No Accessory Muscle Use, No Respiratory Distress Cardiovascular: Regular Rate, Rhythm, No Murmur Neurologic/Psychiatric: Alert, Oriented x3 Skin: Jaundice Results/Procedures Lab Laboratory Tests 02/27/21 04:44 Patient resulted labs reviewed. Imaging: Reviewed Imaging Report Assessment/Plan Assessment and Plan Assess & Plan/Chief Complaint VALERI on CKD Elevated bilirubin Symptomatic anemia Pancytopenia Hepatocellular carcinoma Pancreatic cancer Goals of care discussion Poor prognosis Significantly elevated BUN/Cr, stable again today Continue gentle IV fluids Urine culture with Enterococcus faecalis Continue Levaquin Hemoglobin stable Platelets improving s/p 1 unit PRBC Does not want dialysis, reaffirms that today DNR/DNI Discussed poor prognosis again, may be unable to undergo further chemotherapy, discussed palliative care/hospice Palliative care consulted, appreciate assistance I updated Kiera KNOX of his changing opinion regarding chemotherapy HTN AFib Hold home meds GERD PPI DVT prophylaxis: Lovenox Critical Care Critically Ill Patient Clinical Quality Measures AMI/AHF: ASA po Prior to arrival: TADEO Yoo MD Feb 27, 2021 13:40
--- NOTE | 2021-02-27 14:31 | Occ Therapy Progress Note ---
Therapy Progress Note Pt returning to bed with nursing staff, sat EOB. OT assisted pt supine, assist with LEs. Pt states he is fatigued at this time, and has been unable to sleep for a couple of days. OT assists pt to comfort with blankets, and lowers the blinds in his room in order to decrease light. OT offered ADLs or UE exercise, and educated pt on purpose and benefit of OT, but he pleasantly declines at this time as he wishes to rest. Post tx, pt laying in bed, call light in reach and all needs met. 1, visit 1410 ELI MACKENZIE OT Feb 27, 2021 14:31
--- NOTE | 2021-02-27 15:00 | Physical Therapy Daily Note ---
PT Daily Note-Current Subjective Pt agrees to take a short walk. Requests to sit in the chair post treatment. Transfers SCALE: Activities may be completed with or without assistive devices. 7-Zhzurznhrq-trgsqbm completes the activity by him/herself with no assistance from a helper. 5-Set-up or Clean-up Assistance-helper sets up or cleans up; patient completes activity. [place] assists only prior to or following the activity. 4-Supervision or Touching Assistance-helper provides verbal cues and/or touching/steadying and/or contact guard assistance as patient completes activity. Assistance may be provided throughout the activity or intermittently. 3-Partial/Moderate Assistance-helper does LESS THAN HALF the effort. [place] lifts, holds or supports trunk or limbs, but provides less than half the effort. 2-Substantial/Maximal Assistance-helper does MORE THAN HALF the effort. [place] lifts or holds trunk or limbs and provides more than half the effort. 7-Hdtptyznf-kyoxkm does ALL the effort. Patient does none of the effort to complete the activity. Or, the assistance of 2 or more helpers is required for the patient to complete the activity. If activity was not attempted, code reason: 7-Patient Refused. 9-Not Applicable-not attempted and the patient did not perform the activity before the current illness, exacerbation or injury. 10-Not Attempted due to Environmental Limitations-(lack of equipment, weather restraints, etc.). 88-Not Attempted due to Medical Conditions or Safety Concerns. Lying to Sitting/Side of Bed(Q: 4 Sit to Stand (QC): 4 Chair/Apc-zi-Qovki Xfer(QC): 4 Gait Training Walk 150 ft (QC): 4 Gait Assistive Device: Cane Single Point Treatments Pt got out of bed and ambulated; then returned to the recliner post treatment. Needs met and call light in reach. Assessment Pt quiet and rarely responds to questions but is cooperative with treatment. Slow gait but steady. PT Short Term Goals Short Term Goals Time Frame: Mar 11, 2021 Roll Left & Right: 4 Sit to lyin Lying to sitting on side of be: 4 Sit to stand: 5 Chair/nfe-yn-ldjzg transfer: 5 Toilet transfer: 5 Car transfer: 4 Walk 10 feet: 5 Walk 50 feet with two turns: 5 Walk 150 feet: 4 Walking 10ft on uneven surface: 4 1 step (curb): 3 4 steps: 3 12 steps: 3 Picking up objects: 4 Wheel 50ft w/2 turns: 88 Wheel 150 feet: 88 PT Vinegar Maker Goals Vinegar Maker Goals PT Mcfp Goals Time Frame: Apr 01, 2021 Roll Left & Right (QC): 6 Sit to Lying (QC): 6 Lying-Sitting on Side/Bed(QC): 6 Sit to Stand (QC): 6 Chair/Fqb-kv-Kanfb Xfer(QC): 6 Toilet Transfer (QC): 6 Car Transfer (QC): 6 Does the Patient Walk: Yes Walk 10 feet (QC): 6 Walk 50ft with 2 Turns (QC): 6 Walk 150 ft (QC): 6 Walking 10ft on Uneven Surface: 6 1 Step (curb) (QC): 6 4 Steps (QC): 6 12 Steps (QC): 5 Picking up an Object (QC): 6 Does the Pt use WC or Scooter?: No Wheel 50 feet with 2 turns (QC: 88 Type: Manual Wheel 150 feet: 88 Type: Manual PT Plan Problem List Problem List: Activity Tolerance, Functional Strength, Safety, Balance, Gait, Transfer, Bed Mobility Treatment/Plan Treatment Plan: Continue Plan of Care Treatment Plan: Bed Mobility, Education, Functional Activity Stephon, Functional Strength, Group Therapy, Gait, Safety, Therapeutic Exercise, Transfers Treatment Duration: Apr 29, 2021 Frequency: 6 times per week Estimated Hrs Per Day: .25 hour per day Safety Risks/Education Patient Education: Safety Issues Teaching Recipient: Patient Teaching Methods: Demonstration Response to Teaching: Reinforcement Needed Time/GCodes Time In: 1315 Time Out: 1335 Total Billed Treatment Time: 20 Total Billed Treatment visit GT 20 CHRISTINE MCGILL PT Feb 27, 2021 15:00
[2021-02-27 16:00] VITALS: BP 121/70
[2021-02-27 19:45] VITALS: BP 116/64
[2021-02-28 00:30] VITALS: BP 104/71
[2021-02-28] MEDS: fentaNYL INJ 100 MCG/2 ML AMP IVP PRN ×2 (00:50→08:06)
[2021-02-28 03:50] VITALS: BP 100/67
[2021-02-28] MEDS: PANTOPRAZOLE 40 MG (PROTONIX) TAB PO SCH (05:19)
[2021-02-28 05:31] LABS: BASOPHILS % (AUTO) 0 % (0-10); EOSINOPHILS % (AUTO) 0 % (0-10); HEMATOCRIT 22 % (40-54); HEMOGLOBIN 7.7 g/dL (13.3-17.7); LYMPHOCYTES # (AUTO) 0.6 10^3/uL (1.0-4.0); LYMPHOCYTES % (AUTO) 16 % (12-44); MEAN CORPUSCULAR HEMOGLOBIN 35 pg (25-34); MEAN CORPUSCULAR HGB CONC 35 g/dL (32-36); MEAN CORPUSCULAR VOLUME 101 fL (80-99); MEAN PLATELET VOLUME 11.3 fL (9.0-12.2); MONOCYTES # (AUTO) 1.3 10^3/uL (0.0-1.0); MONOCYTES % (AUTO) 35 % (0-12); NEUTROPHILS # (AUTO) 1.6 10^3/uL (1.8-7.8); NEUTROPHILS % (AUTO) 41 % (42-75); PLATELET COUNT 228 10^3/uL (130-400); WHITE BLOOD COUNT 3.8 10^3/uL (4.3-11.0)
[2021-02-28 05:36] LABS: ALBUMIN 1.9 GM/DL (3.2-4.5)
[2021-02-28 05:37] LABS: POTASSIUM 4.2 MMOL/L (3.6-5.0)
[2021-02-28 05:38] LABS: CALCIUM 7.8 MG/DL (8.5-10.1)
[2021-02-28 05:39] LABS: TOTAL PROTEIN 4.7 GM/DL (6.4-8.2)
[2021-02-28 05:42] LABS: CREATININE SERUM 3.38 MG/DL (0.60-1.30)
[2021-02-28] MEDS: NS IV 1000 ML 1,000 ML IV SCH ×2 (05:47→11:51)
[2021-02-28 06:21] LABS: ANISOCYTOSIS MODERATE; BAND NEUTROPHILS 4 %; HYPOCHROMASIA MODERATE; LYMPHOCYTES % (MANUAL) 10 %; MONOCYTES % (MANUAL) 23 %; MYELOCYTES % 1 %; NEUTROPHILS % (MANUAL) 60 %; NUCLEATED RED BLOOD CELLS 25; POIKILOCYTOSIS SLIGHT; POLYCHROMASIA MODERATE; REACTIVE LYMPHOCYTES 2 %
[2021-02-28 06:22] LABS: BURR CELLS SLIGHT; TOXIC GRANULATION/VACUOLAZATIO 1+
[2021-02-28 08:10] VITALS: BP 106/57
[2021-02-28] MEDS: ONDANSETRON 4 MG/2 ML (SDV) Z0FRAN IV PRN (08:12)
--- NOTE | 2021-02-28 09:02 | Occupational Ther Daily Note ---
OT Current Status-Daily Note Subjective Pt pleasantly denies upon first entry, although states would agree to OOB ~20 min later. OT comes in later in morning, pt AxO, agrees to OOB/ toileting with increased encouragement. Pt states minimal pain. Mental Status/Objective Patient Orientation: Person, Place, Situation Attachments: IV ADL-Treatment Therapy Code Descriptions/Definitions Functional [place] Measure: 0=Not Assessed/NA 4=Minimal Assistance 1=Total Assistance 5=Supervision or Setup 2=Maximal Assistance 6=Modified [place] 3=Moderate Assistance 7=Complete IndependenceSCALE: Activities may be completed with or without assistive devices. 0-Acfwusmwfx-mjozdoe completes the activity by him/herself with no assistance from a helper. 5-Set-up or Clean-up Assistance-helper sets up or cleans up; patient completes activity. [place] assists only prior to or following the activity. 4-Supervision or Touching Assistance-helper provides verbal cues and/or touching/steadying and/or contact guard assistance as patient completes activity. Assistance may be provided throughout the activity or intermittently. 3-Partial/Moderate Assistance-helper does LESS THAN HALF the effort. [place] lifts, holds or supports trunk or limbs, but provides less than half the effort. 2-Substantial/Maximal Assistance-helper does MORE THAN HALF the effort. [place] lifts or holds trunk or limbs and provides more than half the effort. 7-Ccwgckimz-jihvjs does ALL the effort. Patient does none of the effort to complete the activity. Or, the assistance of 2 or more helpers is required for the patient to complete the activity. If activity was not attempted, code reason: 7-Patient Refused. 9-Not Applicable-not attempted and the patient did not perform the activity before the current illness, exacerbation or injury. 10-Not Attempted due to Environmental Limitations-(lack of equipment, weather restraints, etc.). 88-Not Attempted due to Medical Conditions or Safety Concerns. Lower Body Dressing (QC): 3 Toileting Hygiene (QC): 6 Toilet Transfer (QC): 4 Other Treatment Pt bed mob with CGA. Pt states needs to "get my bearings," prior to stance, sits EOB and completes hair grooming with good balance. sit to stand with SBA, use of SPC and IV pole to stabilize when ambulating to bathroom. Sits with good positioning/ control. Pt requires mod A for threading BLE with new brief and altamirano ts. Pt sit to stand SUP and brings both LB dressings over hips with SBA. Pt ambulates to recliner, positioned for comfort, all needs met, call light in reach. Education OT Patient Education: Correct positioning, Purpose of tx/functional activities, Safety issues Teaching Recipient: Patient Teaching Methods: Demonstration, Discussion Response to Teaching: Verbalize Understanding, Return Demonstration OT Jail Goals Secretary Of State Goals Time Frame: Mar 04, 2021 Eating (QC): 6 Oral Hygiene (QC): 6 Toileting Hygiene (QC): 6 Shower/Bathe Self (QC): 6 Upper Body Dressing (QC): 6 Lower Body Dressing (QC): 6 On/Off Footwear (QC): 6 Additional Goals: 1-Demonstrate ADL Tasks, 2-Verbalize Understanding, 3- ImproveStrength/Stephon 1=Demonstrate adherence to instructed precautions during ADL tasks. 2=Patient will verbalize/demonstrate understanding of assistive devices/modifications for ADL. 3=Patient will improve strength/tolerance for activity to enable patient to perform ADL's. OT Education/Plan Problem List/Assessment Assessment: Decreased Activ Tolerance, Dependent Transfers, Edema, Impaired Bed Mobility, Impaired Funct Balance, Impaired I ADL's, Impaired Self-Care Skills Discharge Recommendations Plan/Recommendations: Continue POC Therapy Discharge Recommendati: 24 Hour Supervision Treatment Plan/Plan of Care Treatment,Training & Education: Yes Patient would benefit from OT for education, treatment and training to promote independence in ADL's, mobility, safety and/or upper extremity function for ADL's. Plan of Care: ADL Retraining, Functional Mobility, UE Funct Exercise/Act Treatment Duration: Mar 04, 2021 Frequency: 5 times per week Estimated Hrs Per Day: .25 hour per day Agreement: Yes Rehab Potential: Fair Time/GCodes Start Time: 08:21 Stop Time: 08:40 Total Time Billed (hr/min): 19 Billed Treatment Time 1, ADL (19) RUPAL HART OTR Feb 28, 2021 09:01
--- NOTE | 2021-02-28 09:29 | Progress Note - Hospitalist ---
Subjective HPI/CC On Admission Date Seen by Provider: Feb 28, 2021 Time Seen by Provider: 09:26 Anam Powell is a 76 year old male with PMH hepatocellular carcinoma, pancreatic cancer, HTN, CHF, GERD, Afib, CKD3, who presented after being found to have abnormal labs. He was supposed to undergo chemotherapy at the cancer center today. He had labs done and was found to have an acute kidney injury, anemia, and elevated bilirubin. He reports feeling fatigued. He has had dyspnea on exertion. He denies fevers and chills. He denies cough. He denies trouble breathing. He denies chest pain. He says his abdomen has been swollen. He denies nausea and vomiting. He denies constipation and diarrhea. He denies dysuria, urgency, and frequency. He does not smoke cigarettes. He drinks occasionally and has had some drinks this week. Subjective/Events-last exam Pt reports doing k but still having pain. Pain improves with fentanyl though. Sitting up in chair today. Objective Exam Vital Signs Vital Signs Date Time Temp Pulse Resp B/P (MAP) Pulse Ox O2 Delivery O2 Flow Rate FiO2 02/28/21 08:10 35.5 106 20 106/57 (73) 98 Room Air Capillary Refill : Less Than 3 Seconds General Appearance: No Apparent Distress, Chronically ill Respiratory: Lungs Clear, No Respiratory Distress Cardiovascular: Regular Rate, Rhythm, No Murmur Neurologic/Psychiatric: Alert, Oriented x3, Depressed Affect Results/Procedures Lab Laboratory Tests 02/28/21 05:20 Patient resulted labs reviewed. Imaging: Reviewed Imaging Report Assessment/Plan Assessment and Plan Assess & Plan/Chief Complaint VALERI on CKD Elevated bilirubin Symptomatic anemia Pancytopenia Hepatocellular carcinoma Pancreatic cancer Goals of care discussion Poor prognosis Significantly elevated BUN/Cr, up somewhat today Planning to DC with hospice Continue fentanyl IV for breakthrough but add fentanyl patch for control and oral hydrocodone for first line breakthrough in preparation for DC home Urine culture with Enterococcus faecalis Continue Levaquin s/p 1 unit PRBC Does not want dialysis DNR/DNI Palliative care consulted, appreciate assistance Planning to DC home with hospice, SW to assist family with safe DC plan HTN AFib Hold home meds GERD PPI DVT prophylaxis: Lovenox Critical Care Critically Ill Patient Clinical Quality Measures AMI/AHF: ASA po Prior to arrival: TADEO Yoo MD Feb 28, 2021 09:29
[2021-02-28] MEDS ORDERED: fentaNYL PATCH 25 MCG (DURAGESIC) TD SCH (09:30)
[2021-02-28] MEDS ORDERED: HYDROcodone/APAP 5 MG/325 MG (LORTAB) TAB PO PRN (09:30)
--- NOTE | 2021-02-28 10:09 | Physical Therapy Progress Note ---
Therapy Progress Note Pt declined PT visit this am. Will check later today. CHRISTINE MCGILL PT Feb 28, 2021 10:09
[2021-02-28] MEDS: DOCUSATE SODIUM 100 MG (COLACE) CAP PO SCH ×2 (11:27→21:00)
[2021-02-28] MEDS: SENNOSIDES 8.6 MG (SENOKOT) TAB PO SCH ×2 (11:27→21:00)
[2021-02-28] MEDS: SODIUM BICARBONATE 650 MG TABLET (NON-FORMULARY) PO SCH ×4 (11:27→19:54)
[2021-02-28] MEDS: ENOXAPARIN 30 MG/0.3 ML (LOVENOX) SYR SC SCH (11:28)
[2021-02-28 11:47] VITALS: BP 110/56
--- NOTE | 2021-02-28 13:52 | Physical Therapy Progress Note ---
Therapy Progress Note Patient adamantly declined PT stating, "I've been up all day. I'm tired." PT attempted to encourage patient to participate with therapy, however, patient continued to refuse due to fatigue. Will attempt in a.m. 1 ref (1300) EDWIN JULIEN PT Feb 28, 2021 13:52
[2021-02-28 15:28] VITALS: BP 109/71
[2021-02-28 20:00] VITALS: BP 99/68
[2021-03-01 00:10] VITALS: BP 66/42
[2021-03-01] MEDS: NS IV 1000 ML 1,000 ML IV SCH ×2 (01:50→10:23)
[2021-03-01 04:20] VITALS: BP 77/50
[2021-03-01 08:51] VITALS: BP 68/49
[2021-03-01] MEDS: PANTOPRAZOLE 40 MG (PROTONIX) TAB PO SCH (09:24)
[2021-03-01] MEDS: DOCUSATE SODIUM 100 MG (COLACE) CAP PO SCH (09:24)
[2021-03-01] MEDS: ENOXAPARIN 30 MG/0.3 ML (LOVENOX) SYR SC SCH (09:24)
[2021-03-01] MEDS: SENNOSIDES 8.6 MG (SENOKOT) TAB PO SCH (09:24)
[2021-03-01] MEDS: SODIUM BICARBONATE 650 MG TABLET (NON-FORMULARY) PO SCH (09:24)
[2021-03-01] MEDS ORDERED: FENT1PAT8 TD (11:54)
[2021-03-01] MEDS ORDERED: ACHD5005 PO (11:54)
[2021-03-01] MEDS ORDERED: LEVO750T39 PO (11:54)
[2021-03-01 12:21] VITALS: BP 83/59
--- NOTE | 2021-03-01 13:21 | Discharge Inst-Simple/Standard ---
Discharge Inst-Standard Discharge Medications New, Converted or Re-Newed RX: Transmitted to Pharmacy Patient Instructions/Follow Up Plan of Care/Instructions/FU: Please continue to take your medications as written. Activity as Tolerated: Yes Discharge Diet: No Restrictions Return to The Hospital For: If your symptoms are uncontrolled. TADEO JOHNSON MD Mar 01, 2021 13:21
--- NOTE | 2021-03-01 13:25 | Discharge Summary ---
Diagnosis/Chief Complaint Date of Admission Feb 23, 2021 at 12:47 Date of Discharge Discharge Date: Mar 01, 2021 Admission Diagnosis Acute kidney injury superimposed on chronic kidney disease Primary Care Roney Muro DO Discharge Diagnosis (1) Acute kidney injury superimposed on chronic kidney disease Status: Acute (2) Symptomatic anemia Status: Acute (3) Pancreatic cancer Status: Acute (4) Liver cancer Status: Acute (5) Elevated bilirubin Status: Acute (6) Poor prognosis Status: Acute (7) Goals of care, counseling/discussion Status: Acute (8) UTI (urinary tract infection) Status: Acute Discharge Summary Discharge Physical Exam Allergies: Coded Allergies: No Known Drug Allergies (Unverified , 02/23/21) Vitals & I&Os Vital Signs Date Time Temp Pulse Resp B/P (MAP) Pulse Ox O2 Delivery O2 Flow Rate FiO2 03/01/21 12:21 36.3 102 20 83/59 (67) 98 Room Air Hospital Course Labs (last 24 hrs) Microbiology 02/23/21 Urine Culture - Final, Complete Enterococcus faecalis Patient resulted labs reviewed. Imaging: Reviewed Imaging Report Discharge Home Medications: Active Scripts Active HYDROcodone/APAP 5 MG/325 MG TAB (Acetaminophen/Hydrocodone Bitart) 1 Tab Tab 1 Ea PO Q4H PRN Fentanyl Patch 25 MCG (Fentanyl) 1 Each Patch.td72 25 Mcg TD Q72H Levofloxacin 750 Mg Tablet 750 Mg PO Q48H Reported Iron Chews (Iron,Carbonyl) 15 Mg Tab.chew 15 Mg PO DAILY Pantoprazole Sodium 40 Mg Tablet.dr 40 Mg PO DAILY Instructions to patient/family Please see electronic discharge instructions given to patient. Clinical Quality Measures AMI/AHF: ASA po Prior to arrival: No Problem Qualifiers (1) Liver cancer: Liver malignancy type: hepatocellular carcinoma Qualified Codes: C22.0 - Liver cell carcinoma (2) UTI (urinary tract infection): Urinary tract infection type: acute cystitis Hematuria presence: without hematuria Qualified Codes: N30.00 - Acute cystitis without hematuria TADEO JOHNSON MD Mar 01, 2021 13:25
--- NOTE | 2021-03-01 14:15 | Occ Therapy Progress Note ---
Therapy Progress Note Pt seated upright in recliner, pleasantly declines OT services at this time. Pt has crackers and soda on tray table, able to open crackers independently, OT assists with opening soda and pouring into cups. OT educated pt on purpose and benefit of OT. Pt indicates he is going to be discharging this afternoon, and does not wish to have OT services at this time. OT will attempt again tomorrow if pt still admitted. 1, visit 1350 ELI MACKENZIE OT Mar 01, 2021 14:15
[2021-03-01 15:50] VITALS: BP 83/59
[2021-03-01 16:00] VITALS: BP 69/42
== END 2021-03-01 15:50 | disposition hospice, home (50) | DRG 682 ==
LOC: EDUNIT# 12:33 → ER 12:34 → 4TH 12:47
PROVIDERS: ADMIT Internal Medicine; ATTEND Internal Medicine
DX: N17.9 Acute kidney failure, unspecified (principal); D61.810 Antineoplastic chemotherapy induced pancytopenia; I13.0 Hypertensive heart and chronic kidney disease with heart failure and stage 1 through stage 4 chronic kidney disease, or unspecified chronic kidney disease; C22.0 Liver cell carcinoma; C25.9 Malignant neoplasm of pancreas, unspecified; N39.0 Urinary tract infection, site not specified; N18.9 Chronic kidney disease, unspecified; I50.9 Heart failure, unspecified; I48.91 Unspecified atrial fibrillation; K21.9 Gastro-esophageal reflux disease without esophagitis; M10.9 Gout, unspecified; N18.30 Chronic kidney disease, stage 3 unspecified; T45.1X5A Adverse effect of antineoplastic and immunosuppressive drugs, initial encounter; D64.9 Anemia, unspecified; Z66 Do not resuscitate; Z51.5 Encounter for palliative care
CPT/HCPCS: 36415; 80048; 80053; 81000; 83735; 84100; 85007; 85025; 85027; 85610; 86850; 86900; 86901; 86920; 87077; 87088; 87186; 93005; 93306; 96360; 99284